=== PATIENT | female | born 1970 | race Caucasian/White ===

== ENCOUNTER 2020-03-03 15:02 | Outpatient (REF) | payer OTHER, SELFPAY ==
--- NOTE | 2020-03-03 15:22 | XR_ITS ---
EXAMINATION: XR ABDOMEN KUB CLINICAL INDICATION: Constipation bloating. COMPARISON: None TECHNIQUE: AP view of the abdomen. FINDINGS: The bowel gas pattern is normal with no evidence of ileus or obstruction. There is scattered stool in the right colon with No unusual soft tissue calcifications are noted. The bones are unremarkable. XR/XR abdomen 1V IMPRESSION: Mild constipation.
[2020-03-03 16:03] LABS: Hematocrit 36.7 % (37-47); Hemoglobin 12.2 g/dl (12.0-16.0); Mean Corpuscular HGB Conc 33.2 g/dl (31.0-35.0); Mean Corpuscular Hemoglobin 30.1 pg (27.0-33.0); Mean Corpuscular Volume 90.6 fL (80-98); Mean Platelet Volume 10.2 fL (9.4-12.3); Platelet Count 214 X10*3/uL (160-400); Red Blood Count 4.05 X10*6/uL (4.20-5.50); Red Cell Distribution Width 12.4 % (11.0-16.0); White Blood Count 5.4 X10*3/uL (4.8-10.8)
== END 2020-03-03 15:03 | disposition home or self-care (01) ==
LOC: HO.LAB 15:02
PROVIDERS: PCP Physician Assistant; Visit Provider Family Medicine
DX: R10.9 Unspecified abdominal pain (principal)
CPT/HCPCS: 36415; 74018; 85027

== ENCOUNTER 2020-03-13 07:57 | Outpatient (REF) | payer OTHER, SELFPAY ==
--- NOTE | 2020-03-13 | US_ITS ---
EXAMINATION: US ABDOMEN COMPLETE CLINICAL INFORMATION: Abdominal pain. COMPARISON: X-ray abdomen 03/03/2020. TECHNIQUE: Real-time imaging of the abdominal viscera. FINDINGS: PANCREAS: Normal. ABDOMINAL AORTA: The proximal, mid, and distal segments are normal in caliber. INFERIOR VENA CAVA: Visualized portions are normal. LIVER: The liver is normal in size. The liver contour is normal. Parenchymal echogenicity is normal. There is a 7 x 6 x 9 mm cyst high in the right lobe the liver near the diaphragm. There is no intrahepatic biliary duct dilatation seen. GALLBLADDER: The gallbladder is physiologically distended. There is a small 2 x 1 mm echogenic density adjacent to the gallbladder wall questionable for a small gallbladder wall polyp. No definite gallstones are seen. No gallbladder wall thickening, edema or pericholecystic fluid is seen. COMMON BILE DUCT: Normal in caliber measuring 0.3 cm in diameter. RIGHT KIDNEY: Normal. No hydronephrosis. No renal calculi or focal parenchymal lesions. The kidney measures 9.2 cm in maximum dimension. LEFT KIDNEY: There may be mild fullness of the left renal pelvis. No hydronephrosis. No renal calculi or focal parenchymal lesions. The kidney measures 9.2 cm in maximum dimension. SPLEEN: Normal. The spleen measures 9.6 cm in maximum dimension. FREE FLUID: None. ADDITIONAL FINDINGS: There is a small pericardial effusion. US/US abdomen complete IMPRESSION: Small liver cyst. Question small polyp in the gallbladder. No gallstone seen. Fullness of the left renal pelvis. No hydronephrosis. Small pericardial effusion. This could be better assessed with echocardiogram.
== END 2020-03-13 07:58 | disposition home or self-care (01) ==
LOC: HO.US 07:57
PROVIDERS: Visit Provider Family Medicine
DX: R10.9 Unspecified abdominal pain (principal)
CPT/HCPCS: 76700

== ENCOUNTER → 2020-04-05 13:59 | Outpatient (REF) | payer OTHER, SELFPAY ==
--- NOTE | 2020-04-05 14:00 | CA_ITS ---
Transthoracic Echocardiogram Patient (Last, First, Middle): Lea Marcus A Gender: Female Date of : 1970 Age: 49 Procedure Date: 04/05/2020 Procedure Type: Transthoracic Echocardiogram Location: OP Height: 157.48 cm Weight: 61.24 kg BSA: 1.62 m2 Heart Rate: bpm BP: 108 / 56 mmHg Environmental Communications Specialist: JOJO Ulloa MD: Irish [employer] Software Quality Manager: Charan Padilla MD Symptoms: PERICARDIAL EFFUSION Study Quality: Good ECG Rhythm: Sinus Conclusions: - Normal study Findings Left Ventricle Normal left ventricular size, thickness, and systolic function. The visually estimated ejection fraction is between 65-70%. Diastolic function is normal for age. Right Ventricle Normal right ventricular cavity size and systolic function. Atria Both atria are normal in size. There is lipomatous hypertrophy of the interatrial septum. There is no evidence of interatrial shunt. Aortic Valve Normal aortic valve structure and function. There is no aortic valve stenosis. There is no aortic valve regurgitation. Mitral Valve Normal mitral valve structure and function. There is trace mitral valve regurgitation. There is no mitral valve stenosis. Pulmonic Valve The pulmonic valve is likely normal. Tricuspid Valve Normal tricuspid valve structure. There is trace tricuspid valve regurgitation. The right ventricular systolic pressure is normal. The right ventricular systolic pressure is 26 mmHg. Normal right atrial pressure. There is no evidence of pulmonary hypertension. Great Vessels All visible segments of the aorta are normal in size. The pulmonary artery was not well visualized. Venous The inferior vena cava is normal in size and collapses greater than 50% with inspiration. Pericardium/Pleural There is no evidence of pericardial effusion. Prior Study Comparison No prior study available for comparison. Measurements 2D Linear Measurements RVIDd: 2.90 RVIDd Index: 1.79 IVSd: 0.89 0.6-0.9/0.6-1.0 cm LVIDd: 3.94 3.9-5.3/4.2-5.9 cm LVIDd Index: 2.43 2.4-3.2/2.2-3.1 cm/m2 LVIDs: 2.96 2.0-3.6 cm LVPWd: 0.99 0.7-1.1 cm Ao Root: 2.40 2.1-3.5 cm LA Diam: 3.00 2.7-3.8/3.0-4.0 cm LAIDs Index: 1.85 1.5-2.3 cm/m2 LV Mass: 141.62 67-162/88-224 g LV Mass Index: 87.42 43-95/49-115 g/m2 LVOT Diam: 2.00 3.0+(-)1.3 cm 2D Systolic Function EF 4C: 70.50 >55% EF 2C: 69.40 >55% EF BiP: 69.60 >55% Mitral Valve MV Pk E: 0.77 MV PK A: 0.35 MV Decel Time: 236.00 E/A: 2.20 E'Lateral: 12.20 E'Medial: 9.90 E/E' Med: 7.70 E/E' Lat: 6.30 Aortic Valve AoV Pk Michael: 1.18 AoV Mn Michael: 0.89 AoV VTI: 0.26 AoV Pk Grad: 6.00 Aov Mn Grad: 3.00 DAVID Cont.VTI: 2.14 LVOT LVOT Pk Michael: 0.83 LVOT Mn Michael: 0.59 LVOT VTI: 0.18 LVOT Pk Grad: 3.00 LVOT Mn Grad: 2.00 LVOT Diam: 2.00 LVOT Area: 3.14 Diastolic Function MV Pk E: 0.77 MV Pk A: 0.35 E/A: 2.20 E'Medial: 9.90 E/E' Med: 7.70 E' Laterial: 12.20 E/E' Lat: 6.30 Tricuspid Valve TR Pk Michael: 2.42 TR Pk Grad: 23.00 RA Press: 3.00 RVSP: 26.00 Great Vessels Aorta Ao Root-2D: 2.40 2.0-3.7 cm Ao Asc: 2.50 2.1-3.4 cm Ao Arch: 2.10 Updated in Other Vendor System with Status of Final Charan Padilla MD electronically signed on 04/05/2020 3:11:00 PM with status of Final
== END ==
LOC: HO.CARD 13:59
PROVIDERS: PCP Physician Assistant; Visit Provider Physician Assistant
DX: I31.1 Chronic constrictive pericarditis (principal)
CPT/HCPCS: 93306

== ENCOUNTER 2020-05-19 08:29 | Outpatient (REF) | payer OTHER, SELFPAY ==
[2020-05-19 08:56] LABS: COVID-19 Test Negative (Negative)
== END 2020-05-19 08:30 | disposition home or self-care (01) ==
LOC: HO.LAB 08:29
PROVIDERS: Visit Provider Internal Medicine
DX: Z20.822 Contact with and (suspected) exposure to COVID-19 (principal)
CPT/HCPCS: 36415; 87635; C9803

== ENCOUNTER 2020-05-23 07:50 | Outpatient (REF) | payer OTHER, SELFPAY ==
[2020-05-23 08:08] LABS: COVID-19 Test Negative (Negative); IDNOW Serial# 55D5AD1C
== END 2020-05-23 07:51 | disposition home or self-care (01) ==
LOC: HO.EMPCOV 07:50
PROVIDERS: Visit Provider Internal Medicine
DX: Z20.822 Contact with and (suspected) exposure to COVID-19 (principal)
CPT/HCPCS: 36415; 87635; C9803

== ENCOUNTER 2024-07-18 | Outpatient (REF) | payer OTHER, SELFPAY ==
--- OUTSIDE RECORDS SUMMARY | 2024-07-19 08:47 | XMS_ITS | Data Portability ---
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 [address] [place] [address] 09/25/2012 09:14:23 09/25/2012 10:07:42 [id number] Sunshine Serra MA , [facility], [address] [place] [address] 07/23/2013 14:18:09 07/26/2013 14:06:23 Palpitations [id number] Anxiety 95726138 [id number] MATTI Chavez , [facility], OFFICE [address] [place] [address] 11/24/2013 10:54:33 11/24/2013 15:18:18 Adult health examination [id number] see Risk Assessment and Lifestyle Change Counseling section above Counseling [id number] Perimenopa usal disorder [id number] , [facility], [address] [place] [address] 09/05/2014 10:35:58 09/06/2014 09:29:51 Multiple joint pain 13223027 Patient with diffuse finger joint pain. Also with associated fatigue and some perimenopa usal symptoms. Patient is concerned about Lyme disease. Will check Lyme Ab, CBC, ESR, TSH, BARBARA and RF. Will monitor for any worsening symptoms. Otalgia 37231113 Patient with right-side d ear ache. Recent URI symptoms. Also with right maxillary sinus congestion . Encouraged to use nasal saline irrigation . Has tried decongesta nt without significan t relief. Also recommende d oral antihistam ine. No clinical evidence of otitis media or otitis externa. No pain over the temporal artery area. [id number] Venita Allen , [facility], [address] [place] [address] 03/01/2015 11:51:04 03/09/2015 14:09:44 Urinary tract infectious disease 26196187 N39.0 I'm no sure this is a uti- is on docycyline which would treate e.coli. need to await u/c results. no rx prescribed . I doubt the sx are from the med, but pt stopped med anyway. Increased frequency of urination 250698011 R35.0 [id number] MATTI Chavez , [facility], [address] [place] [address] 03/22/2015 10:51:45 03/22/2015 12:03:25 Adult health examination 564657453 Z00.00 see Risk Assessment and Lifestyle Change Counseling section above Counseling 695147724 Z71 .9 Menopausal syndrome 1237 85291 N95.9 Multiple joint pain 3567 8005 M25.50 being tx/[facility] for lyme- neg western blot. [id number] Genna Correa MA , [facility], [address] [place] [address] 06/05/2016 13:26:05 06/05/2016 15:01:59 Adult health examination 359772564 Z00.00 see Risk Assessment and Lifestyle Change Counseling section above Counseling 005018181 Z71 .9 Screening mammography 24 588092 Z12.31 Screening for malignant neoplasm of cervix 837708262 Z12.4 Perimenopa usal disorder 080354379 N95.9 supportive measures reviewed- discussed risk with estrogen/p rogeterone - f/u if any pelvic pain, irregular bleeding or peristant joint pain Active or passive immunization 212145250 Z23 [id number] MATTI Chavez , [facility], [address] [place] [address] 06/11/2017 15:05:25 06/12/2017 07:42:42 Adult health examination 088909650 Z00.00 see Risk Assessment and Lifestyle Change Counseling section above Counseling 231421733 Z71 .9 Mass of buccal mucosa 13 47394070 3816516 K13.79 will f/u with oral surgeon. pt states will schedule, decline referral [id number] Aleida Zelaya MD , [facility], [address] [place] [address] 10/01/2017 10:50:07 10/01/2017 11:50:10 Pharyngitis 484748270 J02.9 URI/viral syndromeen c throat carehydrat ion, restsee pt instr Cough 92513960 R05 tx coughno evidence pna on exam or hx Chest pain 04392616 R07. 9 pt with chest pain that is very rare and not current but described as crushing and radiating to jaw, resolves on own after 15 minutes generallyE CG today in office normalwill get labs and exercise stress test [id number] MATTI Chavez FP, [facility], [address] [place] [address] 07/15/2018 16:00:31 07/16/2018 08:28:54 Adult health examination 882413001 Z00.00 see Risk Assessment and Lifestyle Change Counseling section above Counseling 935031025 Z71 .9 Depression screening 171 212326 Z13.89 depression screening tool administer ed, entered into emr, scored and discussed, time greater than 7.5 minutes Screening procedure 2012 5006 Z13.9 [id number] Sea Marie MD , [facility], [address] [place] [address] 08/25/2019 10:32:53 08/26/2019 08:40:12 Lesion of skin of breast 3700286499 33752 L98.8 discussed reassuring that it completely resolveds in day- suspect due to skin dryness- plan- use eucerin cream 1-2x/day as barrier on areolas of breast, f/u if not resolving in coming months- sooner any worsening. plan is to do mammogram- this yr when pandemic enables pt to come in- pt agrees with plan [id number] MATTI Chavez FP, [facility], [address] [place] [address] 12/13/2019 16:14:53 12/24/2019 12:06:39 Insomnia 451859666 G47.00 Gastroesop hageal reflux disease 608597150 K21.9 start famotodine 20 bid, reviewed triggers Chest pain 08688848 R07. 9 with negative stres test, no related to activity suspect due to gerd, keep diary re agg factors and for chest tenderness [id number] Sea Marie MD , [facility], [address] [place] [address] 02/23/2020 08:15:43 02/24/2020 12:38:01 Screening for malignant neoplasm of colon 612024007 Z12.11 Referral for a DIRECT booked colonoscop y. This patient is a healthy ASA Class 1 or 2 patient (only mild systemic disease), or a STABLE, well controlled insulin dependent diabetic. They do not have serious cardiac disease ie AZ/angiopl asty within 1 year, symptomati c CHF; renal failure with CKD 4 or 5; take Coumadin, Plavix, Aggrenox, etc. 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 pt also [facility] Scre[facility] for malignant neoplasm of cervix 102199225 Z12.4 will schedule for pap smear in coming months- 3 yr, [facility] '- pt would like to do [id number] Aleida Zelaya MD , [facility], [address] [place] [address] 03/02/2020 12:28:49 03/03/2020 08:47:37 Screening mammography 47027495 Z12.31 Abdominal pain 37489252 R10.9 3 weeks increasing , associated constipati onno n/v or fever/chil lsupper somewhat to leftfeels bloated, epigastric tenderness on examrectal vault emptyonly passing small hard stoolssusp ect severe constipati on, unclear reasoningn o acute abdlabs and imaging belowlactu lose today tx constipati onf/u one week, sooner PRNED if vomiting, fever, severe paincan add enema if stool moves down and trouble passing Screening for malignant neoplasm of colon 600076123 Z12.11 Constipation 93757739 K5 9.00 see notes above [id number] MATTI Chavez, [facility], [address] [place] [address] 03/29/2022 15:18:22 03/29/2022 16:10:45 Adult health examination 249387811 Z00.00 see Risk Assessment and Lifestyle Change Counseling section above Counseling 435736132 Z71 .9 including cardiovasc ular risk reduction counseling Depression screening 171 240383 Z13.31 depression screening tool administer ed, entered into emr, scored and discussed, time greater than 7.5 minutes Screening for alcohol abuse 015174607 Z13.39 Fatigue 20092440 R53.83 Screening for malignant neoplasm of colon 144613345 Z12.11 pt declines despite knowing risk of infection and Screening mammography 24 075191 Z12.31 pt declines testing despite knowing risk of infection and [id number] MATTI Chavez, [facility], [address] [place] [address] 06/11/2024 16:08:38 06/14/2024 12:11:09 Adult health examination 240501370 Z00.00 see Risk Assessment and Lifestyle Change Counseling section above Depression screening 171 989883 Z13.31 depression screening tool administer ed Screening for alcohol abuse 238174392 Z13.39 Alcohol use screening tool administer ed Hyperlipidemia 15732031 E78.5 Screening for malignant neoplasm of colon 251970488 Z12.11 pt declines despite knowing risk of infection and Vitamin D deficiency 347 75408 E55.9 Cobalamin deficiency 190 480186 E53.8 low animla products Health Concerns Section Related Observation LastModified by Organization Detai ls LastModified Time None Recorded Concern Status LastModified by Organization Details LastModified Time None Recorded Advance Directives Directive N: Payers Encounter Date Sequence Insurance Name Policy Number Policy Puckett Covered Member ID Puckett Member ID Guarantor Name 02/23/2020 1 [employer] [place] [id number] Lea A Marcus [id number] Lea A Marcus 03/02/2020 1 [employer] [place] [id number] Lea A Marcus [id number] 16 Lea A Marcus 03/29/2022 1 [employer] [place] [id number] Lea A Marcus [id number] 16 Lea A Marcus 06/11/2024 1 [employer] [place] [id number] Lea A Amrit [id number] 16 Lea A Marcus Notes Date Note Type Note Provider Name and Address Organization Details Recorded Time 02/23/2020 text/html Pt reports bloat ing ongoing about 2 wks- worsening in persisting, no abd pain, uncomfortable, worsening over time, had diarrhea on Friday after trying MOM.. no n/v, BM's- 1 q 2-3 days- high fluids, had been high fiber but has decreased. no assoc with dairy. no vaginal bleeding, no pelvic pain, was on antibiotics, no contaminated, city water, no travel. no symptoms, caffeine- 1/day, etoh- none, exercise continues. Letty video- pt has link, states may have trouble with her phone so if not online when AE is ready to please call Time for intake: {{1 2 3 4 5* 6 7 8 9 10 11 12 13 14 15 16 17 18 19 20 21 22 23 24 25}} minutes. Sea Marie MD [address] [place] [address], [place], [address], [facility] 02/23/2020 09:57:18 03/02/2020 text/html for past three w eeks has had some stomach bloating encompassing her whole abdpressure upper abd, sometimes pain on left upper, radiating to backBMs have been small and not frequentstarted metamucil last week w/o resultstried a suppository last night, no resultsfeels sx are getting worsevery uncomfortable, rhianna sitting downlast BM small balls three days agodoesn't recall last regular BMtried MOM and just had water from rectum after this two weeks ago has not had these sx before has not had recent change in diet or activity appetite is fine, supressing it herself because it hurts after she eatsdenies fever/chills, n/v/d, heartburn/reflux sx no unintentional weight loss in past six months postmenopausal, thinks 3-5 years nowno vaginal bleeding no hx irritable bowel syndrome or constipation Aleida Zelaya MD [address] [place] [address], [phone], [facility] 03/02/2020 14:02:03 03/29/2022 text/html Physical Exam/FemaleReported bypatient.PHAPatient is here for a Wellness Visit. She describes her health status as fair. Patient's health is worse than last year.Risk Assessment and Lifestyle Change Counseling 50-64Reported bypatient.Coronary Artery Disease Risk Assessment:No Family history of coronary artery disease; No personal history of diabetes; No history of peripheral vascular disease, AAA, or carotid disease; No personal history of coronary artery disease Breast Cancer Risk Assessment:No family history of breast cancer; No history of breast cancer or dcis Colon Cancer Risk Assessment:No family history of colon polyps or cancer; No history of adenomatous colon polyps Lung Cancer Risk Assessment:Never smoked; No asbestos exposure Fracture Risk Assessment:No unexplained fracture Cognitive/Behavioral Risk Assessment:No personal history of mental illness; No family history of mental illness Safety Risk Assessment:No evidence of abuse/neglect MATTI Chavez [address] [place], [address], [facility] 04/02/2022 22:26:11 06/11/2024 text/html Physical Exam/FemaleReported bypatient.PHAPatient is here for a Wellness Visit. She describes her health status as fair. Patient's health is worse than last year.Risk Assessment and Lifestyle Change Counseling 50-64Reported bypatient.Coronary Artery Disease Risk Assessment:No Family history of coronary artery disease; No personal history of diabetes; No history of peripheral vascular disease, AAA, or carotid disease; No personal history of coronary artery disease Breast Cancer Risk Assessment:No family history of breast cancer; No history of breast cancer or dcis Colon Cancer Risk Assessment:No family history of colon polyps or cancer; No history of adenomatous colon polyps Lung Cancer Risk Assessment:Never smoked; No asbestos exposure Fracture Risk Assessment:No unexplained fracture Cognitive/Behavioral Risk Assessment:No personal history of mental illness; No family history of mental illness Safety Risk Assessment:No evidence of abuse/neglect Pt presents for wvDeclines all qm measuresNo concerns History of Present IllnessThe patient, a 54-year-old with a 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 The patient's blood pressure and weight are within normal ranges.However, she has a history of high LDL cholesterol, and her mother has high cholesterol and high blood pressure. The patient is not sexually active and has not had a Pap test or HPV test in several years. She expresses concern about her risk for uterine cancer due to a family history of the disease no pelvic pain, no bleeding. The patient does not receive flu shots or COVID vaccines, and she declines colon cancer and breast cancer screening. She reports good sleep, a healthy diet, and regular exercise. She has reduced her caffeine intake and drinks alcohol only occasionally. MATTI Chavez [address] [place] [address], [place], [address], [facility] 06/13/2024 14:52:44 OBGyn Episode No OBEpisode recorded.
== END 2024-07-18 00:01 | disposition home or self-care (01) ==
LOC: HO.LNP
PROVIDERS: Visit Provider Physician Assistant
DX: Z13.89 Encounter for screening for other disorder (principal)

== ENCOUNTER 2024-07-19 07:50 | Outpatient (REF) | payer OTHER, SELFPAY ==
[2024-07-19 08:05] LABS: MANUAL DIFF FLAG NO
[2024-07-19 08:27] LABS: Basophils Percent Auto 0.7 % (0-2); Eosinophils Absolute Auto 0.2 X10*3/uL (0.0-0.4); Eosinophils Percent Auto 3.8 % (0-4); Hematocrit 38.5 % (37.0-47.0); Hemoglobin 13.1 g/dl (12.0-16.0); Imm Gran Abs Auto 0.01 X10*3/uL (0.00-0.03); Imm Gran Pct Auto 0.2 % (0.0-0.4); Lymphocytes Absolute Auto 1.6 X10*3/uL (1.2-4.9); Lymphocytes Percent Auto 38.4 % (20-40); Mean Corpuscular Hemoglobin 30.6 pg (27.0-33.0); Monocytes Absolute Auto 0.3 X10*3/uL (0.1-1.2); Neutrophils Absolute Auto 2.1 x10*3/uL (2.0-8.3); Neutrophils Percent Auto 50.9 % (45-73); Platelet Count 218 X10*3/uL (160-400); Red Blood Count 4.28 X10*6/uL (4.20-5.50); Red Cell Distribution Width 12.6 % (11.0-16.0); White Blood Count 4.2 X10*3/uL (4.8-10.8)
[2024-07-19 08:53] LABS: Alanine Aminotransferase 21 U/L (0-31); Albumin Level 4.3 g/dL (3.5-5.0); Alkaline Phosphatase 55 U/L (39-117); Anion Gap 11 (12-20); Aspartate Amino Transferase 25 U/L (5-31); Bilirubin Total 0.3 mg/dL (0.0-1.0); Blood Urea Nitrogen 15 mg/dL (9-16); Calcium 9.3 mg/dL (8.4-10.2); Carbon Dioxide 24 mmol/L (22-29); Chloride 110 mmol/L (96-108); Cholesterol 215 mg/dL (<200); Estimated Glomerular Filt Rate > 60; Glucose Random 105 mg/dL (60-115); HDL Cholesterol 77 mg/dL (>40); LDL Cholesterol Calculated 128 mg/dL (<100); Sodium 141 mmol/L (135-145); Total Protein 7.2 g/dL (6.5-8.0); Triglycerides 50 mg/dL (<150)
[2024-07-19 09:09] LABS: Thyroid Stimulating Hormone 1.84 uIU/mL (0.32-4.0)
== END 2024-07-19 07:51 | disposition home or self-care (01) ==
LOC: HO.LAB 07:50
PROVIDERS: PCP Physician Assistant; Visit Provider Physician Assistant
DX: R10.2 Pelvic and perineal pain (principal); Z13.6 Encounter for screening for cardiovascular disorders
CPT/HCPCS: 36415; 80053; 80061; 84443; 85025

== ENCOUNTER 2024-08-02 16:11 | Outpatient (REF) | payer OTHER, SELFPAY ==
--- NOTE | ~2024-08-02 | US_ITS ---
EXAMINATION: US PELVIS TRANSABDOMINAL AND TRANSVAGINAL HISTORY: pelvic pain COMPARISON: There are no prior studies for comparison. TECHNIQUE: Transabdominal and endovaginal real-time 2D morfin-scale ultrasound was performed. FINDINGS: Uterus: The uterus is normal in size, measuring 6.6 x 2.4 x 3.5 cm. Myometrium has a normal echotexture. There is a right uterine body fibroid measuring 1.5 x 1.4 x 1.3 cm. An additional posterior fibroid is seen measuring 0.9 x 0.6 x 0.6 cm. Endometrium: The endometrial stripe measures 2 mm in thickness. There is trace fluid in the endometrial canal. Right ovary: The right ovary measures 2.0 x 1.2 x 1.3 cm. The right ovary is normal in size and echotexture. Left ovary: The left ovary measures 2.1 x 1.5 x 1.9 cm. The left ovary is normal in size and echotexture. Pelvic fluid: none. US/US pelvic and transvaginal IMPRESSION: Fibroid uterus as described. Trace fluid in the endometrial canal. Electronically signed by: Alban Hoyos MD 08/03/2024 08:48 AM EDT
--- OUTSIDE RECORDS SUMMARY | 2024-08-02 18:50 | XMS_ITS | Data Portability ---
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 pt also due for colonoscop y screening- [facility] Screening for malignant neoplasm of cervix 497338547 Z12.4 will schedule for pap smear in coming months- 3 yr, pmh cryosurger y '93- pt would like to do [id number] Aleida Zelaya MD FP, [facility], [address] [place] [address] 03/02/2020 12:28:49 03/03/2020 08:47:37 Screening mammography 54172860 Z12.31 Abdominal pain 06169279 R10.9 3 weeks increasing , associated constipati [...] passing Screening for malignant neoplasm of colon 674329345 Z12.11 Constipation 63479239 K5 9.00 see notes above [id number] MATTI Chavez, [facility] [address] [place] [address] 03/29/2022 15:18:22 03/29/2022 16:10:45 Adult health examination 596547047 Z00.00 see Risk Assessment and Lifestyle Change Counseling section above Counseling 934859080 Z71 .9 including cardiovasc ular risk reduction counseling Depression screening 171 835875 Z13.31 depression screening tool administer ed, entered into emr, scored and discussed, time greater than 7.5 minutes Screening for alcohol abuse 090495235 Z13.39 Fatigue 59753727 R53.83 Screening for malignant neoplasm of colon 199106700 Z12.11 pt declines despite knowing risk of infection and Screening mammography 24 773458 Z12.31 pt declines testing despite knowing risk of infection and [id number] MATTI Chavez, [facility] [address] [place] [address] 06/11/2024 16:08:38 06/14/2024 12:11:09 Adult health examination 094082816 Z00.00 see Risk Assessment and Lifestyle Change Counseling section above Depression screening 171 294663 Z13.31 depression screening tool administer ed Screening for alcohol abuse 215676832 Z13.39 Alcohol use screening tool administer ed Hyperlipidemia 67982256 E78.5 Screening for malignant neoplasm of colon 463792990 Z12.11 pt declines despite knowing risk of infection and Vitamin D deficiency 347 03563 E55.9 Cobalamin deficiency 190 107926 E53.8 low animla products [id number] MATTI Chavez , [facility], [address] [place] [address] 07/16/2024 14:47:05 07/21/2024 15:25:50 Pain in pelvis 93458927 R10.2 Health Concerns Section Related Observation LastModified by Organization Detai ls LastModified Time None Recorded Concern Status LastModified by Organization Details LastModified Time None Recorded Advance Directives Directive N: Payers Encounter Date Sequence Insurance Name Policy Number Policy Puckett Covered Member ID Puckett Member ID Guarantor Name 02/23/2020 1 [employer] [place] [id number] Lea Anyi Marcus [id number] 16 Lea A Amrit 03/02/2020 1 [employer] [place] [id number] Lae Anyi Marcus [id number] 16 Lea A Amrit 03/29/2022 1 [employer] [place] [id number] Lea Marcus [id number] 16 Lea A Amrit 06/11/2024 1 [employer] [place] [id number] Lea Marcus [id number] 16 Lea A Amrit 07/16/2024 1 [employer] [place] [id number] Lea Marcus [id number] 16 Lea Marcus Notes Date Note Type Note Provider [...] 23 24 25}} minutes. Sea Marie MD [address] [place] [address], [phone], [facility] 02/23/2020 09:57:18 03/02/2020 text/html for past three [...] bowel syndrome or constipation Aleida Zelaya MD [address] [place], [address], [facility] 03/02/2020 14:02:03 03/29/2022 text/html Physical Exam/FemaleReported bypatient.PHAPatient [...] Risk Assessment:No evidence of abuse/neglect MATTI Chavez [address] [place] [address], [phone], [facility] 04/02/2022 22:26:11 06/11/2024 text/html Physical Exam/FemaleReported bypatient.PHAPatient [...] and drinks alcohol only occasionally. MATTI Chavez [address] [place] [address], [phone], [facility] 06/13/2024 14:52:44 07/16/2024 text/html Pt presents for gi sxSx include: change in BM, bloating, fullness, back pain, nauseaSx worsen after eatingDenies vomiting, diarrhea, fever, urinary sxOngoing x1 moInterventions include miralaxHas a self-reported good dietPeople at work report patient looks like she has lost weightSx affecting sleep OAD History of Present IllnessThe patient, with a history of vaginal atrophy, presents with abdominal discomfort and change in bowel habits for the past month. They describe a sensation of fullness and pressure in the abdomen, particularly around the umbilical region. They also report a change in bowel habits, with stools now appearing as 'nuggets or pellets.' Despite this change, they deny any straining or pain during bowel movements. The frequency of bowel movements has also changed, but the patient did not specify the new pattern. no blood in stoolsThe patient also reports lower back pain, nausea, and discomfort during sleep. They have not been eating due to the sensation of fullness after meals. They also report a feeling of pressure in the pelvic area. They deny any vaginal bleeding or discharge and are not sexually active. They report no issues with urination but feel pressure in the pelvic area, not specifically during urination.The patient has a family history of ovarian cancer (grandmother and two aunts on the paternal side), which is a cause of concern for them. They have not had a colonoscopy or stool cards done previously. MATTI Chavez [address] [place], [address], [facility] 07/19/2024 14:15:23 OBGyn Episode No OBEpisode recorded.
--- OUTSIDE RECORDS SUMMARY | 2024-08-02 18:51 | XMS_ITS | Continuity of Care Document ---
Author Organization [facility], , [facility], OFFICE Address [address] [place] [address] Care Team Providers Care Stock Room Manager Name Role Phone HAN COBURN Primary Care Provider GOMEZ COBURN Primary Care Provider ARTURO SÁNCHEZ OTHER [facility] Internal Medici ne SUNIL DE LA CRUZ Orthopedist Assessment Encounter Date Assessment Date Assessment LastModified by Organization Details LastModified Time 07/16/2024 07/16/2024 Assessment and Plan Abdominal Discomfort [...] is overdue and changes in bowel habits. leslie Not available 07/19/2024 14:12:58 Plan of Treatment Reminders Order Date Submit Date Provider Last Modified By Organization Details Last Modified Time Details Appointments Follow Up, 2024 03:15P M MATTI Chavez Not available Not available Not available Lab urinalysi s, dipstick 2024 025 [facility], [address] [place] [address], [address], 07/16/2024 16:35:20 CBC 2024 025 [facility]), [address] [place] [address], [address], 07/16/2024 16:03:54 CMP, serum or plasma 2024 025 [facility] [address] [place] [address], [address], 07/20/2024 14:25:03 fecal occult blood, immunoass ay, stool [address] [facility], [address] [place] [address], [address], 07/20/2024 10:44:39 Referral None recorded. Procedures None recorded. Surgeries None recorded. Imaging US, pelvis, complete - 53 yo with 1 month hx of pelvic pain, exam- no masses, FH ovarian cancer [address] [facility], [address] [place] [address], [address], 07/19/2024 14:26:29 US, transvagi nal - worsening pelvic pressure with vaginal blaoting, exam- [address] [facility] Sched[facility], [address] [place] [address], [address], 07/19/2024 14:27:03 Medication Orders None recorded. Patient TargetsNo targets recorded. Patient InstructionsNo instructions recorded. Reason for Referral None Reported. 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 MATTI Chavez [address] [place] [address], [phone] , [place] [facility] 11:42:04 Nausea 307211069 Completed 200603/31/2013 Not Available [facility] 3 02:03:39 Nausea and vomiting 24008774 Completed 200603/31/2013 Not Available [facility] 3 02:03:05 Right lower quadrant pain 329729861 Completed 200303/31/2013 Not Available [facility] 3 02:03:25 Acute cystitis 73897840 Completed 200003/31/2013 Not Available [facility] 3 02:02:31 Lymphadeno ayan 07359931 Completed 200003/31/2013 Not Available [facility] 3 02:03:13 Anxiety state 994512768 Active Not Available [facility] 3 03:06:43 Dizziness 300540740 Completed 200203/31/2013 Not Available [facility] 3 02:02:07 Breast lump 86693041 Active 2007 Not Available [facility] 3 03:06:43 Common cold 01650662 Completed 200003/31/2013 Not Available [facility] 3 02:00:24 Hemorrhage of rectum and anus 577162628 Completed 03/31/2013 Not Available [facility] 3 02:03:16 Abdominal pain 50856832 Completed 200303/31/2013 Not Available [facility] 3 02:01:19 Irregular periods 72270208 Completed 200003/31/2013 Not Available [facility] 3 02:02:18 On examinatio n - a rash Completed 200603/31/2013 Not Available [facility] 3 02:00:45 Female genital organ symptoms 736047499 Completed 200303/31/2013 Not Available [facility] 3 02:03:07 Menopausal symptom 32488068 Completed 03/31/2013 Not Available [facility] 3 02:01:28 Acne 81054912 Active 2003 Not Available [facility] 3 03:06:43 Amenorrhea 58762694 Active Not Available [facility] 3 03:06:43 Cyst of ovary 50017838 Active Not Available [facility] 3 03:06:43 Malaise and fatigue 524936557 Completed 200003/31/2013 Not Available [facility] 3 02:00:14 Vaginitis and vulvovagin itis Completed 200603/31/2013 Not Available [facility] 3 02:01:47 Problem Notes None recorded. Procedures Surgical History Date Name Laterality Status Provider Name and Address Organization Details Recorded Time 0 prevention-card iovascular risk reduction [facility] 11/18/2019 15:22:02 0 prevention-jules al alcohol misuse screening cancelled [facility] 11/18/2019 15:22:02 8 POC Strep Testing completed RONNA Cabrera [facility] 10/01/2017 11:06:46 Imaging Results None recorded. Procedure Notes None recorded. Medical Equipment None Reported. Allergies Allergen ID Allergen Name Allergen Category Reaction Reaction Severity Criticality Documentation Date Start Date Code Code System Note Provider Name and Address Organization Details Recorded Time 3901 morphine medicatio n hives Not available Not available 07/07/2008 7052 RxNorm Not Available [facility] 1 06:05:20 Medications Name Sig Start Date [...] Updated DateTime 5 166.37 cm 22.3 kg/m2 08671.5 6 g 99 % 99 % 61 /min 97.7 [degF] 112 mm[Hg] 72 mm[Hg] Marifer Welch MA [facility] 5 14:57:32 Social History Question Answer Notes LastModified by Organizat ion Details LastModified Time Tobacco Smoking Status Never Smoker Not Available [facility] 03/28/2011 04:53:49 Do You Have An Advance [...] available 07/07/2008 What Is Your Relationship Status? [email or web address] Information not available 03/29/2022 Seat Belts Used Routinely Yes Information not available 03/29/2022 Are You Sexually Active? No [email or web address] Information not available 03/29/2022 Smoke Alarm In Home Yes Information not available 03/29/2022 Do You Or Have You Ever Used Smokeless Tobacco? Never Used Smokeless Tobacco Information not available 03/29/2022 How Much Tobacco Do You Smoke? No Information not available 03/29/2022 General Stress Level Medium Varies Information not available 03/29/2022 Do You Use Any Illicit Or Recreational Drugs? No [email or web address] Information not available 03/29/2022 How Many Years Have You Smoked Tobacco? 0 [email or web address] Information not available 08/25/2019 Do You Or Have You Ever Used Any Other Forms Of Tobacco Or Nicotine? No [email or web address] Information not available 03/29/2022 Sex: Female Functional [...] Td(adult) unspecified formulation 5 completed Not Available [facility] 03/27/2011 05:21:29 influenza, unspecified formulation 2 completed Odalis Weston MA [facility] 04/29/2012 12:11:23 Tdap 7 completed Not Available [facility] 05/29/2019 02:29:58 Past Encounters Encounter ID Performer Location Encounter Start Date Encounter Closed Date Diagnosis/Indication Diagnosis SNOMED-CT Code Diagnosis ICD10 Code Diagnosis Note [id number] MATTI Chavez, [facility], [address] [place] [address] 07/16/2024 14:47:05 07/21/2024 15:25:50 Pain in pelvis 64609881 R10.2 Health Concerns Section Related Observation LastModified by Organization Detai ls LastModified Time None Recorded Concern Status LastModified by Organization Details LastModified Time None Recorded Payers Encounter Date Sequence Insurance Name Policy Number Policy Puckett Covered Member ID Puckett Member ID Guarantor Name 07/16/2024 1 [employer] [facility] (EPO) [id number] Lea Marcus [id number] 16 Lea Marcus Notes Date Note Type Note Provider Name and Address Organization Details Recorded Time 07/16/2024 text/html Pt presents for gi sxSx [...] or stool cards done previously. MATTI Chavez [address] [place] [address], [phone], [facility] 07/19/2024 14:15:23 OBGyn Episode No OBEpisode recorded.
== END 2024-08-02 16:12 | disposition home or self-care (01) ==
LOC: HO.US 16:11
PROVIDERS: PCP Physician Assistant; Visit Provider Family Medicine
DX: R10.2 Pelvic and perineal pain (principal)
CPT/HCPCS: 76830; 76856

== ENCOUNTER → 2024-08-02 16:19 | Outpatient (BNV) | payer OTHER, SELFPAY | PROVIDERS: PCP Physician Assistant; Visit Provider Radiology Diagnostic Radiology | DX: R10.2 Pelvic and perineal pain (principal) | CPT/HCPCS: 76830; 76856 ==

== ENCOUNTER 2024-10-21 08:08 | Outpatient (REF) | payer OTHER, SELFPAY ==
--- OUTSIDE RECORDS SUMMARY | 2024-10-21 08:14 | XMS_ITS ---
Author Name [facility] Organization Unknown Results Test Name/Text Value Interpretation Date Range Source ALP SerPl-cCnc 56U/L [id number] 45 - 117 [facility] Potassium SerPl-sCnc 4.1mmol/L [id number] 3.5 - 5.1 [facility] GFR/BSA.pred SerPlBld QIU-FIY-NlWCdl 60mL/min/1.73 m2 [id number] - [facility] BUN SerPl-mCnc 16mg/dL 189147327844 7 - 18 [facility] Chloride SerPl-sCnc 107mmol/L 885941113644 98 - 10 7 [facility] Bilirub SerPl-mCnc 0.6mg/dL 538126823895 - 1 [facility] Albumin SerPl BCG-mCnc 3.4g/dL 853192973968 3.4 - 5 [facility] Anion Gap3 SerPl-sCnc 6mmol/L [id number] 5 - 15 [facility] Sodium SerPl-sCnc 138mmol/L 606702562682 136 - 145 [facility] ALT SerPl w/o P-5'-P-cCnc 25U/L 135736098800 13 - 56 [facility] BKR CREATININE DELTA 356353908874 [facility] Globulin Plas-mCnc 3.5g/dL 456420465858 2.5 - 5 [facility] Prot SerPl-mCnc 6.9g/dL 561491622930 6.4 - 8.2 [facility] Calcium SerPl-mCnc 9.4mg/dL 635409807697 8.5 - 10 .1 [facility] HCO3 SerPl-sCnc 25mmol/L 030213656056 21 - 32 [facility] AST SerPl w P-5'-P-cCnc 18U/L [id number] 15 - 37 [facility] Glucose SerPl-mCnc 113mg/dL Above high normal 137719439093 65 - 110 [facility] Creat SerPl-mCnc 1.01mg/dL 245265189708 0.55 - 1.0 2 [facility] Troponin T SerPl HS-mCnc 6ng/L 205135167175 - [facility] D dimer FEU PPP-mCnc 0.74mg/LFEU Above high normal 558 - 0.5 [facility] WBC # Bld Auto 4.6c6334/uL 4 - 11 [facility] nRBC/100 WBC Bld Auto-Rto 0% 0 - 1 [facility] Imm Granulocytes/leuk NFr Bld Auto 0.6% 0 - 1 [facility] Lymphocytes # Bld Auto 0.57t0145/uL Below low normal 534400691708 0.6 - 3.7 [facility] Neutrophils/leuk NFr Bld Auto 83.1% Above high normal 964894901564 39 - 72 [facility] Lymphocytes/leuk NFr Bld Auto 8.8% Below low normal 180408445186 17 - 50 [facility] Monocytes # Bld Auto 0.25s3444/uL 122730601484 0 - 1 [facility] Hct VFr Bld Auto 35.7% 895558700295 35 - 45 [facility] Basophils/leuk NFr Bld Auto 0.2% 530567215986 0 - 1.4 [facility] Basophils # Bld Auto 0.93s3182/uL 436287932552 0 - 1 [facility] Hgb Bld-mCnc 12.8g/dL 924265338933 11.7 - 15.5 [facility] Eosinophil/leuk NFr Bld Auto 0.2% 829153207064 0 - 5 [facility] Monocytes/leuk NFr Bld Auto 7.1% 183175078454 4 - 12 [facility] Neutrophils # Bld Auto 4.91q6641/uL 103386879810 2 - 7.6 [facility] Platelet # Bld Auto 644l5215/uL 313788405679 150 - 420 [facility] PMV Bld Auto 9.6fL 795040316496 8 - 12 [facility] Eosinophil # Bld Auto 0.32z8828/uL 291593214500 0 - 1 [facility] RBC # Bld Auto 4.09M/uL 022832294523 4 - 6 [facility] MCH RBC Qn Auto 31.3pg 544180807244 27 - 33 [facility] Imm Granulocytes # Bld Auto 0.70e7939/uL 800058249665 0 - 0.3 [facility] MCV RBC Auto 87.3fL 110806439521 80 - 100 [facility] RDW RBC Auto-Rto 13.2% 031630777329 11 - 15 [facility] nRBC # Bld Auto 6v5191/uL 269521041104 0 - 1 [facility] MCHC RBC Auto-mCnc 35.9g/dL 918603339663 31 - 36 [facility] Encounters Encounter Type Encounter Reason Primary Diagnosis Location Date Emergency Chest pain, unspecified Chest pain, unspecified [facility] 10/04/2024 Care Team Organization Name Specialty Phone Email Start Date End [facility] 10/04/2024 [facility] GOMEZ COBURN Primary Care 10/04/2024 [facility]
[2024-10-21 08:58] LABS: Alanine Aminotransferase 23 U/L (0-31); Albumin Level 4.6 g/dL (3.5-5.0); Alkaline Phosphatase 53 U/L (39-117); Aspartate Amino Transferase 22 U/L (5-31); Bilirubin Direct 0.2 mg/dL (0.0-0.5); Bilirubin Total 0.7 mg/dL (0.0-1.0); Lipase 35 U/L (8-78); Total Protein 6.8 g/dL (6.5-8.0)
[2024-10-21 09:23] LABS: Amylase 102 U/L (28-100)
== END 2024-10-21 08:09 | disposition home or self-care (01) ==
LOC: HO.LAB 08:08
PROVIDERS: PCP Physician Assistant; Referring Provider Physician Assistant; Visit Provider Nurse Practitioner Family
DX: R10.13 Epigastric pain (principal)
CPT/HCPCS: 36415; 80076; 82150; 83690

== ENCOUNTER 2024-11-03 09:17 | Outpatient (REF) | payer OTHER, SELFPAY ==
--- NOTE | ~2024-11-03 | US_ITS ---
EXAMINATION: US ABDOMEN HISTORY: epigastric pain TECHNIQUE: Real-time grayscale ultrasound imaging of the abdomen was performed and images were reviewed. COMPARISON: Comparison is made with the prior examination dated 03/13/2020. FINDINGS: Liver: The right lobe of the liver measures 15.0 cm in size. The left lobe of the liver measures 9.6 cm in size. The liver demonstrates normal homogeneous echotexture. Again seen is a 9 mm cyst in the right lobe. No intrahepatic biliary ductal dilatation is identified. There is normal hepatopedal flow in the portal vein. Gallbladder and biliary tree: Multiple gallbladder polyps are identified, the largest of which measures 7 mm in size. The gallbladder is otherwise unremarkable, without evidence of calculi, wall thickening, or pericholecystic fluid. There is no sonographic Campbell sign. The common bile duct is normal in caliber measuring 5 mm. Kidneys: The right kidney measures 9.7 cm in length. The left kidney measures 9.0 cm in length. There is a tiny 2 mm nonobstructing calculus in the interpolar region of the left kidney. The right renal calculi are identified. There is no renal mass or hydronephrosis. Pancreas: The pancreatic head, neck, and body are unremarkable. The pancreatic tail is obscured by bowel gas. Spleen: The spleen is normal in size and contour, measuring 9.2 cm in length. Abdominal aorta and inferior vena cava: The visualized portions of the abdominal aorta and inferior vena cava are normal in caliber. There is no free fluid in the abdomen. US/US abdomen complete IMPRESSION: 1. Multiple gallbladder polyps measuring up to 7 mm in size. Follow-up is recommended. 2. 9 mm hepatic cyst. 2 mm nonobstructing left renal calculus. Electronically signed by: Alban Hoyos MD 11/03/2024 10:16 AM EDT
--- OUTSIDE RECORDS SUMMARY | 2024-11-03 10:09 | XMS_ITS | Data Portability ---
Author Organization [facility], [facility] Address [address] [place] [address] Care Team Providers Care [facility] Name Role Phone SEA MARIE Primary Care Provider GOMEZ MARIE Primary Care Provider ARTURO SÁNCHEZ OTHER [facility] Internal Medici ne SUNIL DE LA CRUZ Orthopedist Assessment Encounter Date Assessment Date Assessment LastModified by Organization Details LastModified Time 06/11/2024 06/11/2024 Results LABS Total cholesterol: 265 (2019) LDL: 170 (2019) DIAGNOSTIC EKG: Normal (2018) Assessment and Plan Skin Lesion Devine, round lesion present for a year, appears benign. - Educated on monitoring for changes in size, border, or color. Hyperlipidemia Total cholesterol 265 mg/dL, LDL 170 mg/dL in 2020. Family history noted. Discussed need for re-evaluation. [...] of immunizations. - Encouraged healthy lifestyle choices. BINGO FLOATER - perforning pap- f/u /BINGO FLOATER recommendation Follow-up Discussed follow-up plans for lab work and next physical exam. - Schedule fasting lab tests at [facility], including vitamin D and B vitamins. - Schedule next annual physical exam. aesrick Not available 06/13/2024 14:52:34 07/16/2024 07/16/2024 Assessment [...] bowel habits. aesrick Not available 07/19/2024 14:12:58 10/27/2024 10/27/2024 Patient agreed t o this visit via phone or secure telehealth platform. Patient understands this is a scheduled visit and the usual procedures with regard to billing and confidentiality apply. Patient was notified that the provider location is [facility] Patient location: home During the visit the patient s medical history and medical record were reviewed. The patient was notified to call our office for worsening or urgent symptoms. [email or web address] Not available 10/27/2024 10:48:04 Plan of Treatment Reminders Order Date Submit Date Provider Last Modified By Organization Details Last Modified Time Details Appointments None recorded. Lab lipase, serum or plasma 2024 025 [facility] ([facility]), [address] [place] [address], [address], 16:00:46 amylase + lipase, serum 2024 025 [facility] ([facility]), [address] [place] [address], [address], 12:58:34 hepatic function panel, serum 2024 025 [facility] ([facility]), [address] [place] [address], [address], 5 10:30:33 urinalysis , dipstick 2024 025 [facility], [address] [place], [address], 16:35:20 CBC 2024 025 [facility] ([facility]), [address] [place] [address], [address], 16:03:54 CMP, serum or plasma 2024 025 [facility] ([facility]), [address] [place] [address], [address], 14:25:03 fecal occult blood, immunoassa y, stool 2024 025 [facility], [address] [place] [address], [address], 10:44:39 vitamin D, 25-hydroxy , total, serum 2024 025 [facility] ([facility]), [address] [place] [address], [address], 12:40:46 lipid panel, serum 2024 025 [facility] ([facility]), [address] [place] [address], [address], 14:25:04 BMP, serum or plasma 2024 025 [facility] ([facility]), [address] [place] [address], [address], 12:40:46 TSH, serum or plasma 2024 025 [facility] ([facility]), [address] [place] [address], [address], 14:25:04 vitamin B12, serum 2024 025 [facility] ([facility]), [address] [place] [address], [address], 12:40:46 Referral None recorded. Procedures None recorded. Surgeries None recorded. Imaging exercise stress test - 5'5 , 132lbs, no pacer, no medication s to [id number] atypical chest pain lasting 36 hrs., eval in ER recommnedi ng stress test [address] Central Scheduling, [address] [place] [address], [address], 14:50:15 US, abdomen, complete - episodic RUQ and epigastric pain - eval for liver or gall bladder issues 2024 025 [facility] ([facility]), [address] [place] [address], [address], 08:28:24 US, pelvis, complete - 53 yo with 1 month hx of pelvic pain, exam- no masses, FH ovarian cancer 2024 025 [facility] Central Scheduling, [address] [place] [address], [address], 5 08:59:24 US, transvagin al - worsening pelvic pressure with vaginal blaoting, exam- [address] Central Scheduling, [address] [place] [address], [address], 5 14:27:03 Medication Orders famotidine 20 mg tablet 2024 025 [facility] #[id number], [address] [place], [address], 11:34:08 Patient TargetsNo targets recorded. Patient Instructions Encounter Date Encounter Id Patient Instructions Last Modified By Organization Details Last Modified Time 03/29/2022 [id number] well visit, wome n 50 to 65: care instructions [email or web address] Not available 03/29/2022 16:07:46 After a discussi on of treatment options, which included consideration of best practices and patient preferences, the following treatment plan and objectives were adopted: Vitamin D 1000 IUs, Calcium rich diet, exercise daily, resistance training twice per week, Mediterranean diet reviewed. aesrick Not available 03/29/2022 16:09:51 Reason for Referral None Reported. Results Created Date Observation Date Name Description Value Unit Range Abnormal Flag Note LastModifiedBy Organization Detail LastModifiedTime 07/17/1907/16/2024 POC UA glu UA NEGATI VE Not Available [address], [address], 07/16/2024 15:51:06 07/17/19 25 07/16/2024 POC UA clarity UA CLEAR Not Available [address], [address], 07/16/2024 15:51:06 07/17/19 25 07/16/2024 POC UA uro UA 0.2000 Not Available [address], [address], 07/16/2024 15:51:06 07/17/19 25 07/16/2024 POC UA ket UA NEGATI VE Not Available [address], [address], 07/16/2024 15:51:06 07/17/19 25 07/16/2024 POC UA pro UA NEGATI VE Not Available [address], [address], 07/16/2024 15:51:06 07/17/19 25 07/16/2024 POC UA nit UA NEGATI VE Not Available [address], [address], 07/16/2024 15:51:06 07/17/19 25 07/16/2024 POC UA destiny UA NEGATI VE Not Available [facility] [address] [place] [address], [address], 07/16/2024 15:51:06 07/17/19 25 07/16/2024 POC UA pH UA 6.0000 Not Available [facility] [address] [place] [address], [address], 07/16/2024 15:51:06 07/17/19 25 07/16/2024 POC UA SG UA 1.0150 Not Available [facility] [address] [place] [address], [address], 07/16/2024 15:51:06 07/17/19 25 07/16/2024 POC UA color UA YELLOW Not Available [facility] [address] [place] [address], [address], 07/16/2024 15:51:06 07/17/19 25 07/16/2024 POC UA blo UA NEGATI VE Not Available [facility] [address] [place] [address], [address], 07/16/2024 15:51:06 07/17/19 25 07/16/2024 POC UA kinsey UA NEGATI VE Not Available [facility] [address] [place] [address], [address], 07/16/2024 15:51:06 07/19/19 25 07/20/2024 IMMUN OCHEM ICAL FECAL OCCUL T BLOOD ifobt NEGATI VE negati ve Not Available [address], [address], 07/20/2024 10:44:39 08/04/19 25 08/02/2024 US, cindy s, compl ete No observ ation record ed. [facility] [address] [place], [address], 08/06/2024 15:45:39 Result Notes None recorded. Problems Name Problem SNOMED Code Status Onset Date Resolution Date Notes Provider Name and Address Organization Details Recorded Time Perimenopa usal disorder 202932328 Active MATTI Chavez [address] [place] [address], [address] , [facility] 4 11:42:04 Nausea 666566859 Completed 200603/31/2013 Not [address] [facility] 3 02:03:39 Nausea and vomiting 48408396 Completed 200603/31/[address] [facility] 3 02:03:05 Right lower quadrant pain 133468115 Completed 200303/31/[address] [facility] 3 02:03:25 Acute cystitis 10469389 Completed 200003/31/[address] [facility] 3 02:02:31 Lymphadeno ayan 68919101 Completed 200003/31/[address] [facility] 3 02:03:13 Anxiety state 305283851 Active Not Available [facility] 3 03:06:43 Dizziness 867828477 Completed 200203/31/2013 Not Available [facility] 3 02:02:07 Breast lump 14337673 Active 2007 Not Available [facility] 3 03:06:43 Common cold 97127633 Completed 200003/31/[address] [facility] 3 02:00:24 Hemorrhage of rectum and anus 515567414 Completed 03/31/[address] [facility] 3 02:03:16 Abdominal pain 11376129 Completed 200303/31/2013 Not Available [facility] 3 02:01:19 Irregular periods 96231563 Completed 200003/31/[address] [facility] 3 02:02:18 On examinatio n - a rash Completed 200603/31/2013 Not Available [facility] 3 02:00:45 Female genital organ symptoms 335928031 Completed 200303/31/2013 Not Available [facility] 3 02:03:07 Menopausal symptom 99501343 Completed 03/31/2013 Not Available [facility] 3 02:01:28 Acne 67293481 Active 2003 Not Available [facility] 3 03:06:43 Amenorrhea 42331232 Active Not Available [facility] 3 03:06:43 Cyst of ovary 64070402 Active Not Available [facility] 3 03:06:43 Malaise and fatigue 803892973 Completed 200003/31/2013 Not Available [facility] 3 02:00:14 Vaginitis and vulvovagin itis Completed 200603/31/2013 Not Available [facility] 3 02:01:47 Problem Notes None recorded. Procedures Surgical History Date Name Laterality Status Provider Name and Address Organization Details Recorded Time 0 prevention-card iovascular risk reduction counseling cancelled Gennachapo Correa [facility] 11/18/2019 15:22:02 0 prevention-jules al alcohol misuse screening [facility] 11/18/2019 15:22:02 8 POC Strep Testing completed RONNA Cabrera [facility] 10/01/2017 11:06:46 Imaging Results None recorded. Procedure Notes None recorded. Medical Equipment None Reported. Allergies Allergen ID Allergen Name Allergen Category Reaction Reaction Severity Criticality Documentation Date Start Date Code Code System Note Provider Name and Address Organization Details Recorded Time 3901 morphine medicatio n hives Not available Not available 07/07/2008 7052 RxNorm Not Available [facility] 1 06:05:20 Medications Name Sig Start Date [...] day by oral route for 30 days. 2024 active Not Available Not Available Not Avai lable lorazepam 0.5 mg tablet Take 1 tablet [...] BY MOUTH EVERY HOUR UNTIL BOWEL MOVEMENT 10/06 completed not taking Not Available Not Available Not Available Vitals Date Recorded Body height Body mass index (BMI) Body weight Heart rate Oxygen saturation Oxygen saturation in Arterial blood by Pulse oximetry Systolic blood pressure Diastolic blood pressure Provider Name and Address Organization Details Last Updated DateTime 5 166.37 cm 22.5 kg/m2 70405.1 5 g 67 /min 99 % 99 % 124 mm[Hg] 56 mm[Hg] Marifer Welch MA [facility] 5 16:18:41 Date Recorded Body height Body mass index (BMI) Body weight Oxygen saturation Oxygen saturation in Arterial blood by Pulse oximetry Heart rate Body temperature Systolic blood pressure Diastolic blood pressure Provider Name and Address Organization Details Last Updated DateTime 5 166.37 cm 22.3 kg/m2 82684.5 6 g 99 % 99 % 61 /min 97.7 [degF] 112 mm[Hg] 72 mm[Hg] Marifer Welch [facility] 5 14:57:32 Date Recorded Body height Heart rate Oxygen saturation Oxygen saturation in Arterial blood by Pulse oximetry Body mass index (BMI) Body weight Systolic blood pressure Diastolic blood pressure Provider Name and Address Organization Details Last Updated DateTime 5 166.37 cm 73 /min 99 % 99 % 21.7 kg/m2 04805.5 9 g 90 mm[Hg] 58 mm[Hg] Suzie Lemons [facility] 5 14:42:15 Date Recorded Body height Provider Name an d Address Organization Details Last Updated DateTime 10/27/2024 166.37 cm Marifer Welch [facility] 10/27/2024 10:49:35 Date Recorded Heart rate Body weight Body mass index (BMI) Body height Systolic blood pressure Diastolic blood pressure Provider Name and Address Organization Details Last Updated DateTime 2 78 /min 37706.3 7 g 21.8 kg/m2 167.64 cm 112 mm[Hg] 62 mm[Hg] Betsy Prado [facility] 2 15:41:30 Social History Question Answer Notes LastModified by Organizat ion Details LastModified Time Tobacco Smoking Status Never Smoker Not Available [facility] 03/28/2011 04:53:49 Do You Have An Advance Directive? No Information not available 03/29/2022 How Much Tobacco Do You Chew? None Information not available 11/24/2013 Which Illicit Or Recreational Drugs Have You Used? None [email or web address] Information not available 10/01/2017 Education 4 Year College Information not available 03/29/2022 Live Alone Or With Others? With Others Information not available 03/29/2022 CSRP - Narcotics No Informat ion not available 11/24/2013 CSRP Contract Signed And Discussed No Information not available 11/24/2013 Patient Has Health Care Proxy Signed And In Chart No CHRIS PHIPPS, [email or web address] Information not available 09/15/2012 CSRP - Stimulants No Information not available 11/24/2013 Marital Status Informatio n not available 03/29/2022 Mosquito Repellent Used Routinely Yes Information not available 03/29/2022 What Was The Date Of Your Most Recent Tobacco Screening? 07/16/2024 Information not available 07/16/2024 How Many Children Do You Have? 1 15 Yo Daughter [email or web address] Information not available 07/07/2008 What Is Your Relationship Status? [email or web address] Information not available 03/29/2022 Seat Belts Used Routinely Yes Information not available 03/29/2022 Are You Sexually Active? No [email or web address] Information not available 03/29/2022 Smoke Alarm In Home Yes Information not available 03/29/2022 How Much Tobacco Do You Smoke? No Information not available 03/29/2022 General Stress Level Medium Varies Information not available 03/29/2022 How Many Years Have You Smoked Tobacco? 0 [email or web address] Information not available 08/25/2019 Sex: Female Functional Status Question Answer Note LastModified by Organizat ion Details LastModified Time Do you use any illicit or recreational drugs? No [email or web address] Information not available 03/29/2022 Do you or have you ever used any other forms of tobacco or nicotine? No [email or web address] Information not available 03/29/2022 Do you or have you ever used smokeless tobacco? Never used smokeless tobacco Information not available 03/29/2022 Are you currently employed? 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 Never used electronic cigarettes Information not available 03/29/2022 Mental Status None recorded. Family History Relationship Description Onset Age of this Age Resolved Age Notes LastModified by Organization Details LastModified Time Maternal Grandmother Malignant neoplasm of uterus [email or web address] Not available 2021 15:18:32 Mother Disorder of thyroid gland aesrick Not available 2016 14:34:06 Mother Hypercholest erolemia mperkalis Not available 2021 15:18:32 Mother Hypertensive disorder aesrick Not available 2019 16:45:43 Paternal Grandmother Malignant neoplasm of ovary aesrick Not available 2024 15:35:09 Paternal Aunt Malignant neoplasm of ovary aesrick Not available 2024 15:35:16 Paternal Aunt Malignant neoplasm of ovary aesrick Not available 2024 15:35:31 [...] Td(adult) unspecified formulation 5 completed Not Available [facility] 03/27/2011 05:21:29 influenza, unspecified formulation 2 completed Odalis Weston [place] [facility] 04/29/2012 12:11:23 Tdap 7 completed Not Available [facility] 05/29/2019 02:29:58 Past Encounters Encounter ID Performer Location Encounter Start Date Encounter Closed Date Diagnosis/Indication Diagnosis SNOMED-CT Code Diagnosis ICD10 Code Diagnosis Note [id number] Binh Escobedo, [facility], [address] [place] [address] 10/16/2000 16:30:00 06/01/2008 02:02:29 [id number] MATTI Chavez, [facility], [address] [place] [address] 02/11/2001 09:45:00 06/01/2008 02:02:29 [id number] JULISSA Meléndez, [facility], [address] [place] [address] 03/09/2001 13:30:00 06/01/2008 02:02:29 [id number] JULISSA Meléndez, [facility], [address] [place] [address] 04/17/2001 13:30:00 06/01/2008 02:02:29 [id number] Dora Chun NP FP, [facility], [address] [place] [address] 05/06/2001 13:00:00 06/01/2008 02:02:29 [id number] Blaine Malagon MD FP, [facility], [address] [place] [address] 08/11/2001 17:00:00 06/01/2008 02:02:29 [id number] MATTI Chavez, [facility], [address] [place] [address] 10/25/2002 11:31:01 06/01/2008 02:02:29 [id number] [facility] - [address] [address] 10/25/2002 12:43:07 06/01/2008 02:02:29 [id number] MATTI Chavez, [facility], [address] [place] [address] 09/30/2003 12:19:10 09/30/2003 15:34:19 [id number] MATTI Chavez, [facility], [address] [place] [address] 12/02/2003 14:07:01 12/03/2003 11:03:47 [id number] [facility] - [address] [address] 12/02/2003 16:38:03 12/02/2003 16:38:14 [id number] [facility] , [address] [address] 12/05/2003 12:49:12 12/06/2003 09:03:29 [id number] [facility] , [facility] [address] [place] [address] 12/05/2003 00:00:00 06/01/2008 02:02:29 [id number] MATTI Chavez, [facility], [address] [place] [address] 02/13/2004 13:02:11 02/14/2004 10:00:21 [id number] MD SABINO Nicole, [facility], [address] [place] [address] 12/04/2004 16:15:51 06/01/2008 02:02:29 [id number] MATTI Chavez, [facility], [address] [place] [address] 01/18/2005 14:06:53 01/19/2005 10:49:37 [id number] Judith Harman MD , [facility], [address] [place] [address] 03/06/2005 14:20:43 06/01/2008 02:02:29 [id number] MATTI Chavez, [facility], [address] [place] [address] 11/01/2005 11:21:36 06/01/2008 02:02:29 [id number] MATTI Hawkins, [facility], [address] [place] [address] 12/17/2006 13:24:05 12/17/2006 16:27:46 [id number] Sea Marie MD , [facility], [address] [place] [address] 02/16/2007 09:37:39 02/18/2007 11:32:05 [id number] [facility] - [address] [address] 02/16/2007 10:15:30 02/16/2007 10:15:38 [id number] [facility] - [address] [address] 04/24/2007 11:31:52 04/24/2007 11:31:59 [id number] MATTI Chavez, [facility], [address] [place] [address] 04/24/2007 09:58:06 06/01/2008 02:02:29 [id number] MATTI Chavez, [facility], [address] [place] [address] 07/15/2007 09:34:50 06/01/2008 02:02:29 [id number] MATTI Chavez, [facility], [address] [place] [address] 07/07/2008 10:58:21 07/11/2008 14:44:44 [id number] MATTI Chavez, [facility], [address] [place] [address] 02/01/2009 10:58:26 02/03/2009 10:32:18 [id number] [facility] Rad[facility] , [facility] [address] [place] [address] 02/08/2009 10:58:30 02/13/2009 10:22:24 [id number] [facility] - [facility] [address] [place] [address] 02/08/2009 11:01:12 02/08/2009 11:01:34 [id number] [facility] , [address] [address] 06/12/2009 10:45:17 06/13/2009 15:13:01 [id number] MATTI Chavez, [facility], [address] [place] [address] 11/13/2010 15:11:39 11/13/2010 16:16:06 [id number] MD SABINO Bradley, [facility], [address] [place] [address] 04/29/2012 12:03:17 04/29/2012 12:25:41 [id number] MATTI Chavez, [facility], [address] [place] [address] 05/21/2012 13:14:53 05/21/2012 14:03:20 [id number] MATTI Chavez, [facility], [address] [place] [address] 09/15/2012 09:48:39 09/15/2012 10:53:12 [id number] MATTI Chavez, [facility], [address] [place] [address] 09/25/2012 09:14:23 09/25/2012 10:07:42 [id number] Judith Padilla NP , [facility], [address] [place] [address] 07/23/2013 14:18:09 07/26/2013 14:06:23 Palpitations 23336349 Anxiety 81477754 [id number] MD SABINO Biggs, [facility], [address] [place] [address] 11/24/2013 10:54:33 11/24/2013 15:18:18 Adult health examination 169466216 see Risk Assessment and Lifestyle Change Counseling section above Counseling [id number] Perimenopa usal disorder 009432765 [id number] Amador Barroso MD , [facility], [address] [place] [address] 09/05/2014 10:35:58 09/06/2014 09:29:51 Pain of multiple joints 18924893 Patient with diffuse finger joint pain. Also with associated fatigue and some perimenopa usal symptoms. Patient is concerned about Lyme disease. Will check Lyme Ab, CBC, ESR, TSH, BARBARA and RF. Will monitor for any worsening symptoms. Otalgia 31362039 Patient with right-side d ear ache. Recent URI symptoms. Also with right maxillary sinus congestion . Encouraged to use nasal saline irrigation . Has tried decongesta nt without significan t relief. Also recommende d oral antihistam ine. No clinical evidence of otitis media or otitis externa. No pain over the temporal artery area. [id number] Huy Padilla MD , [facility], [address] [place] [address] 03/01/2015 11:51:04 03/09/2015 14:09:44 Urinary tract infectious disease 79223093 N39.0 I'm no sure this is a uti- is on docycyline which would treate e.coli. need to await u/c results. no rx prescribed . I doubt the sx are from the med, but pt stopped med anyway. Increased frequency of urination 240362877 R35.0 [id number] MATTI Chavez , [facility], [address] [place] [address] 03/22/2015 10:51:45 03/22/2015 12:03:25 Adult health examination 481367355 Z00.00 see Risk Assessment and Lifestyle Change Counseling section above Counseling 610013234 Z71 .9 Menopausal syndrome 1237 73042 N95.9 Pain of mu ltiple joints 41311041 M25.50 being tx/[facility] for lyme- neg western blot. [id number] Sea Marie MD , [facility], [address] [place] [address] 06/05/2016 13:26:05 06/05/2016 15:01:59 Adult health examination 443194224 Z00.00 see Risk Assessment and Lifestyle Change Counseling section above Counseling 525906761 Z71 .9 Screening mammography 24 084684 Z12.31 Screening for malignant neoplasm of cervix 957579671 Z12.4 Perimenopa usal disorder 824667474 N95.9 supportive measures reviewed- discussed risk with estrogen/p rogeterone - f/u if any pelvic pain, irregular bleeding or peristant joint pain Active or passive immunization 986660643 Z23 [id number] Sea Marie MD , [facility], [address] [place] [address] 06/11/2017 15:05:25 06/12/2017 07:42:42 Adult health examination 776395683 Z00.00 see Risk Assessment and Lifestyle Change Counseling section above Counseling 917413528 Z71 .9 Mass of buccal mucosa 13 60988256 9789500 K13.79 will f/u with oral surgeon. pt states will schedule, decline referral [id number] Aleida Zelaya MD , [facility], [address] [place] [address] 10/01/2017 10:50:07 10/01/2017 11:50:10 Pharyngitis 702583777 J02.9 URI/viral syndromeen c throat carehydrat ion, restsee pt instr Cough 93872760 R05 tx coughno evidence pna on exam or hx Chest pain 19549219 R07. 9 pt with chest pain that is very rare and not current but described as crushing and radiating to jaw, resolves on own after 15 minutes generallyE CG today in office normalwill get labs and exercise stress test [id number] MATTI Chavez , [facility], [address] [place] [address] 07/15/2018 16:00:31 07/16/2018 08:28:54 Adult health examination 277390974 Z00.00 see Risk Assessment and Lifestyle Change Counseling section above Counseling [id number] Z71 .9 Depression screening 171 470836 Z13.89 depression screening tool administer ed, entered into emr, scored and discussed, time greater than 7.5 minutes Screening procedure 2012 5006 Z13.9 [id number] Sea Marie MD , [facility], [address] [place] [address] 08/25/2019 10:32:53 08/26/2019 08:40:12 Lesion of skin of breast [id number] 58408 L98.8 discussed reassuring that it completely resolveds in day- suspect due to skin dryness- plan- use eucerin cream 1-2x/day as barrier on areolas of breast, f/u if not resolving in coming months- sooner any worsening. plan is to do mammogram- this yr when pandemic enables pt to come in- pt agrees with plan [id number] Sea Marie MD , [facility], [address] [place] [address] 12/13/2019 16:14:53 12/24/2019 12:06:39 Insomnia 184494636 G47.00 Gastroesop hageal reflux disease 221961036 K21.9 start famotodine 20 bid, reviewed triggers Chest pain 09734536 R07. 9 with negative stres test, no related to activity suspect due to gerd, keep diary re agg factors and for chest tenderness [id number] Sea Marie MD , [facility], [address] [place] [address] 02/23/2020 08:15:43 02/24/2020 12:38:01 Screening for malignant neoplasm of colon 556340633 Z12.11 Referral for a DIRECT booked colonoscop y. This patient is a healthy ASA Class 1 or 2 patient (only mild systemic disease), or a STABLE, well controlled insulin dependent diabetic. They do not have serious cardiac disease ie PR/angiopl asty within 1 year, symptomati c CHF; renal failure with CKD 4 or 5; take Coumadin, Plavix, Aggrenox, etc. Abdominal bloating 48954 9008 R14.0 hx constipati on- correction, will increase time in AM for hot drink, add fiber agent hs 1 tbsp, f/u in coming month. pt also due for colonoscop y screening- [facility] Screening for malignant neoplasm of cervix 350758625 Z12.4 will schedule for pap smear in coming months- 3 yr, [facility] cryosurger y - pt would like to do [id number] Aleida Zelaya MD , [facility], [address] [place] [address] 03/02/2020 12:28:49 03/03/2020 08:47:37 Screening mammography 68473788 Z12.31 Abdominal pain 03066069 R10.9 3 weeks increasing , associated constipati [...] passing Screening for malignant neoplasm of colon 381845275 Z12.11 Constipation 90876816 K5 9.00 see notes above [id number] Sea Marie MD , [facility], [address] [place] [address] 03/29/2022 15:18:22 03/29/2022 16:10:45 Adult health examination 730691844 Z00.00 see Risk Assessment and Lifestyle Change Counseling section above Counseling [id number] Z71 .9 including cardiovasc ular risk reduction counseling Depression screening 171 023740 Z13.31 depression screening tool administer ed, entered into emr, scored and discussed, time greater than 7.5 minutes Screening for alcohol abuse 802058979 Z13.39 Fatigue 97702217 R53.83 Screening for malignant neoplasm of colon 401775355 Z12.11 pt declines despite knowing risk of infection and Screening mammography 24 282637 Z12.31 pt declines testing despite knowing risk of infection and [id number] Sea Marie MD , [facility], [address] [place] [address] 06/11/2024 16:08:38 06/14/2024 12:11:09 Adult health examination 859394481 Z00.00 see Risk Assessment and Lifestyle Change Counseling section above Depression screening 171 368276 Z13.31 depression screening tool administer ed Screening for alcohol abuse 273147749 Z13.39 Alcohol use screening tool administer ed Hyperlipidemia 81168923 E78.5 Screening for malignant neoplasm of colon 314998828 Z12.11 pt declines despite knowing risk of infection and Vitamin D deficiency 347 80687 E55.9 Cobalamin deficiency 190 789047 E53.8 low animla products [id number] Sea Marie MD , [facility], [address] [place] [address] 07/16/2024 14:47:05 07/21/2024 15:25:50 Pain in pelvis 16344579 R10.2 [id number] Sea Marie MD , [facility], [address] [place] [address] 10/06/2024 14:08:35 10/12/2024 15:34:02 Epigastric pain 59439536 R10.13 Differenti al dx includes hiatal hernia, cholelithi asis, GERD.Will check labs, u/s - Has GI appt November 1Call if sx recur before then [id number] Sea Marie MD , [facility], [address] [place] [address] 10/27/2024 10:45:35 10/28/2024 13:02:57 Gastro-esophageal reflux disease with esophagitis 727255878 K21.00 start famotodine 20 bid, trial to decrease tenderness and pt will keep diary to record, tx and how it effects abd symptoms- reviewed triggers for gerd, f/u with GI re abd pain, bloating and gerd- as sched Atypical chest pain 1025 76109 R07.89 with negative stress test, no related to activity suspect due to gerd, keep diary re agg factors and for chest tenderness atypical pain- exercise stress test to scheduled, no FH, BP and LDL at goal Health Concerns Section Related Observation LastModified by Organization Detai ls LastModified Time None Recorded Concern Status LastModified by Organization Details LastModified Time None Recorded Advance Directives Directive N: Payers Insurance Date Sequence Insurance Name Policy Number Policy Puckett Covered Member ID Puckett Member ID Guarantor Name 09/12/2023 1 [facility] [id number] Lea Marcus [id number] Lea Marcus 09/12/2023 1 [facility] Lea Marcus [id number] Lea Marcus 10/27/2024 1 [employer] [facility] (EPO) [id number] Lea Marcus [id number] Lea Marcus 09/30/2005 1 [facility]: HMO MICHAEL [id number] Sylvester Phipps [id number] Lea Marcus 05/18/2012 1 [facility] [id number] Sylvester Phipps [id number] Lea De Santiago Amrit 09/12/2023 1 [place] [id number] Lea De Santiago Amrit [id number] Lea De Santiago Amrit 10/09/2001 1 *SELF PAY* Sh dejon De Santiago Amrit 09/12/2023 1 [employer] Lea De Santiago Marcus [id number] Lea De Santiago Amrit 03/05/2016 1 [place] [id number] Sylvester Phipps [id number] Lea De Santiago Amrit 09/12/2023 1 [facility] (HMO) [id number] Lea De Santiago Amrit [id number] Lea De Santiago Amrit 09/12/2023 1 [facility] OPEN ACCESS PLUS [id number] Lea De Santiago Amrit [id number] Lea De Santiago Amrit 09/12/2023 1 [facility] [id number] Lea De Santiago Amrit [id number] Lea De Santiago Amrit Notes Date Note Type Note Provider Name and Address Organization Details Recorded Time 03/29/2022 text/html Physical Exam/FemaleReported bypatient.PHAPatient is here [...] Risk Assessment:No evidence of abuse/neglect MATTI Chavez [address] [place] [address], [phone], [facility] 04/02/2022 22:26:11 06/11/2024 text/html Physical Exam/FemaleReported [...] and drinks alcohol only occasionally. MATTI Chavez [address] [place] [address], [phone], [facility] 06/13/2024 14:52:44 07/16/2024 text/html Pt presents for [...] or stool cards done previously. MATTI Chavez [address] [place] [address], [place], [phone], [facility] 07/19/2024 14:15:23 10/06/2024 text/html pt seen in the E R in [place] on 10/03/24 - c/o chest painpt questions if she has a hiatal hernia. c/o pain, belching, burning in stomach, uncomfortable below bra line. has consult with GI but not until November & thinks needs to see them sooner. ongoing BM issuesvomiting before ER visit Constipation since Jun - more reg nownever [place] colonoscopyWhile [place] - chest pain at night - all nightwent to ER - 12/19 - Tums, Pepcid did not work4 ASA at ERTroponins normal, ETT in past normal burping a lot, diaphragmatic discomfotlifted large aurelio pot awhile ago.decreased appetite - early satiety5# WGT LOSS since May pain now gonehas GI appt November 09 - [facility] Sunshine Millan NP [address] [place], [phone], [facility] 10/08/2024 13:05:46 10/27/2024 text/html Pt presents for lab review History of Present IllnessThe patient is a 54 year old who presents with ongoing abdominal discomfort.They experience persistent abdominal discomfort that is not localized or radiating. There are no associated symptoms such as nausea, vomiting, or changes in bowel habits. had ultrasound sched and GI eval upcoming pt seen in ER for chest pain that lasted > 24 HRS- REVIEW of discharge summary recommended exercise stress test, previous in 2019 negative, pt has not had any chest pain since ER visit, pt had not done any repetitive movements, she states today when she palpates sternos margin has some tendernessPMH intermittent gerd- has resolved with tums use. today on exam states tender over epigastric MATTI Chavez [address] [place], [phone], [facility] 10/27/2024 20:20:32 OBGyn Episode No OBEpisode recorded.
== END 2024-11-03 09:18 | disposition home or self-care (01) ==
LOC: HO.US 09:17
PROVIDERS: PCP Physician Assistant; Visit Provider Family Medicine
DX: R10.13 Epigastric pain (principal)
CPT/HCPCS: 76700

== ENCOUNTER → 2024-11-03 09:34 | Outpatient (BNV) | payer OTHER, SELFPAY | PROVIDERS: PCP Physician Assistant; Visit Provider Radiology Diagnostic Radiology | DX: N20.0 Calculus of kidney (principal); K76.89 Other specified diseases of liver; K82.4 Cholesterolosis of gallbladder | CPT/HCPCS: 76700 ==

== ENCOUNTER 2024-11-09 12:17 | Outpatient (AMB) | payer OTHER, SELFPAY ==
--- NOTE | 2024-11-09 12:23 | A.OFFVIS_ITS ---
Vital Signs 11/09/24 12:27 Height 5 ft 6 in Weight 134 lb BMI 21.6 BP 132/51 L Blood Pressure Location Lt brachial Pulse 66 Pulse Oximetry (%) 100 Oxygen Delivery Method Room Air Intake Visit Reasons: [place] Screening / Constipation Intake Note: Patient new consult for [place] Screening / Constipation. Patient cc: abdominal bloating, abdominal discomfort, burping and constipation. Faculty Criminal Justice Required: No Accompanied by: Self / Same As Patient Allergies morphine Allergy (Intermediate, Verified 11/09/24 12:25) Hives HPI HPI [place] Screening / Constipation: Details: Patient is a 54-year-old female with PMH of anxiety. Referred by PCP for pre colonoscopy screening. Lea reports constipation and bloating that began in June of this year. She reports experiencing incomplete evacuation and changes in her bowel habits, initially not having bowel movements for up to a week at a time. After implementing bowel training techniques, she began having more regular movements, but now reports constipation is recurring. She describes her stools as varying in size from small rabbit pellets to medium-sized, with very rare large bowel movements. The consistency is soft, without diarrhea. Bowel movements occur approximately every couple of days. She reports significant bloating, which is present even when she has not eaten and is worse when sitting down. She describes feeling like everything is crunched and squished together in her abdomen when seated. The bloating is constant, occurring daily, and is very uncomfortable but not painful. She denies noticing any blood in her stools, nausea, vomiting, or abdominal pain. She reports frequent burping, rare episodes of heartburn, and recalls an incident of unrelenting chest pain on that led to an [place] visit [place] with negative workup results. Carbonated drinks, particularly sparkling water, exacerbate her symptoms and cause stomach pain. She has tried MiraLax, magnesium citrate supplements, and completed a trial of Pepcid without improvement in bloating. She reports purposely restricting her food intake to manage bloating, though her appetite remains unchanged. She denies significant weight changes, with weight fluctuating between 129-135 pounds. Patient denies: fever/chills, regurgitation, dysphasia, unintentional wt loss or melena/hematochezia. 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 [facility] Medical History (Updated 11/09/24 @ 17:44 by Heather Mcclure CNP) Chest pain Gallbladder polyp Change in stool Colon cancer screening Family History Paternal Grandmother Uterus cancer Mother HTN (hypertension) Radha's disease Social History (Updated 11/09/24 @ 12:41 by Kelsy Jasso) Household Members: Family Alcohol intake: current Alcohol intake frequency: holidays/special occasions only Patient Tobacco Use Status: Never used Tobacco Review of Systems Const Reports as per HPI ENT Reports as per HPI Card Reports as per HPI Resp Reports as per HPI GI Reports as per HPI Reports as per HPI Physical Exam Vital Signs: Last Vital Signs Pulse 66 11/09/24 12:27 BP 132/51 L 11/09/24 12:27 Pulse Ox 100 11/09/24 12:27 Oxygen Delivery Method Room Air 11/09/24 12:27 BMI result Body Mass Index 21.6 Const General: healthy appearing, no acute distress and well developed Nutritional Appearance: well nourished Orientation/consciousness: patient oriented x3 HEENT Head: Yes normal to inspection, Yes normocephalic and Yes atraumatic Face and sinus: Yes normal facial exam Eyes General: appearance normal, both eyes and all related structures Neck Neck: Yes normal visual inspection Resp Effort & Inspection: normal respiratory effort, able to speak in complete sentences, no tracheal deviation and symmetric chest movement Auscultation: clear to auscultation bilaterally Cardio Jugular venous distension: no JVD Rate: regular rate Rhythm: regular rhythm Heart sounds: S1 normal heart sound present, S2 normal heart sound present, no gallops and no murmurs GI Inspection: Yes normal to inspection and No distended Palpation (GI): Soft to palpation, not firm, nontender and No hepatosplenomegaly present Auscultation: Hyperactive bowel sounds present Neuro General: patient oriented x3 Gait exam (Neuro): Normal gait present Psych Appearance: grossly normal Mental Status: mental status grossly normal Speech and movement: Normal speech and movement present Affect: normal affect Attitude: cooperative Thought process: Normal thought process present Thought content: Normal thought content present Insight: Good insight present (Psych) Judgement: Good judgement present (Psych) Assessment & Plan Assessment & Plan (1) Colon cancer screening: Code(s): Z12.11 - Encounter for screening for malignant neoplasm of colon Category: Medical Plan: Due for index screening colonoscopy Medications: -prescriptions for laxative tablets and MiraLax sent to pharmacy; instructions for Gatorade purchase and clear liquid diet given. Patient educated on scheduling process, procedure preparation, including avoiding certain foods and ensuring clear liquid intake Advised on necessity for ride post-procedure due to sedation. (2) Change in stool: Code(s): R19.5 - Other fecal abnormalities Category: Medical Plan: Constipation and bloating - Incomplete evacuation. Reassuring labs collected 07/19/2024; no anemia, normal renal function and LFTs. Discussed imaging given persistent symptoms. However, Lea declined and would like to wait until after the colonoscopy before imaging is ordered. - Prescribe simethicone for bloating relief. - Order celiac disease screening and inflammatory markers. - Schedule H. pylori breath test in 2 weeks. - Schedule upper endoscopy in conjunction with colonoscopy for further evaluation of esophagus and stomach. - Recommend low FODMAP diet trial. - Consider CT scan if symptoms persist after negative H. pylori test and colonoscopy. (3) Gallbladder polyp: Code(s): K82.4 - Cholesterolosis of gallbladder Category: Medical Plan: - Multiple polyps with largest 7mm, increased from questionable 2mm in 2020. - Recommend follow-up ultrasound in 6-12 months to be ordered by PCP - Consider general surgery referral, defer to PCP - Monitor for symptoms of gallbladder issues (epigastric pain, right upper quadrant pain, nausea) (4) Chest pain: Code(s): R07.9 - Chest pain, unspecified Category: Medical Qualifiers: Chest pain type: unspecified Qualified Code(s): R07.9 - Chest pain, unspecified Plan: Episode of unrelenting chest pain on , ER workup negative for cardiac issues. - Await results of upcoming stress test. -Cardiology referral for pre-op clearance - Educate on GERD symptoms and triggers. -ER precautions reviewed. Plan Follow up includes: Nurse visit in 2 weeks for H pylori testing Provider follow-up in 8 weeks Time: I spent a total of 50 minutes on the date of encounter which includes: Preparing to see the patient (reviewed previous documentation, test results and medical history) Performing a medically appropriate exam and/or evaluation Ordering medications, tests, and procedures Documenting clinical information in the health record Orders: Orders C Reactive Protein Today R19.5 - Other fecal abnormalities Transglutaminase IgA Today R19.5 - Other fecal abnormalities Referrals Cardiology Referral Z01.818 - Encounter for other preprocedural examination Medications: New polyethylene glycol 3350 (Miralax) per colonoscopy prep instructions 238 grams PO ONCE 238 grams 0RF simethicone (Gas Relief (simethicone)) 4 times daily as needed after meals and at bedtime 125 mg PO BID-QID PRN 90 caps 1RF gas bisacodyl Take four tablets once for 1 day per colonoscopy instructions 5 mg PO ONCE 4 tabs 0RF 1 day Coding Level of Care Code New Pt New Pt Level 4 (86753) Patient Type New Diagnoses Colon cancer screening Z12.11 Change in stool R19.5 Gallbladder polyp K82.4 Chest pain, unspecified type R07.9 Chest pain type: unspecified
[2024-11-09 12:27] VITALS: BP 132/51; PULSE 66; O2SAT 100; BMI 21.6
--- NOTE | 2024-11-09 12:27 | A.OFFVIS_ITS ---
Vital Signs 11/09/24 12:27 Height 5 ft 6 in Weight 134 lb BMI 21.6 BP 132/51 L Blood Pressure Location Lt brachial Pulse 66 Pulse Oximetry (%) 100 Oxygen Delivery Method Room Air Intake Visit Reasons: [place] Screening / Constipation Allergies morphine Allergy (Intermediate, Verified 11/09/24 12:25) Hives HPI HPI [place] Screening / Constipation: Details: Patient is a 54-year-old female with PMH of anxiety. Referred by PCP for pre colonoscopy screening. Patient is accompanied by [] Allergy [] Patient denies: fever/chills, n/v, appetite changes, pyrosis, regurgitation,dysphasia, unintentional wt loss, ab pain or melena/hematochezia. Social hx: []ETOH use []recreational drug use [] nicotine dependence, cessation [] - family hx as below -[] personal hx of CA -[] significant cardiopulmonary history -tolerated anesthesia in the past [] difficulty. [facility] Medical History (Updated 11/09/24 @ 12:34 by Heather Mcclure CNP) Colon cancer screening Review of Systems Const Reports as per HPI ENT Reports as per HPI Card Reports as per HPI Resp Reports as per HPI GI Reports as per HPI Reports as per HPI Physical Exam Const General: healthy appearing, no acute distress and well developed Nutritional Appearance: well nourished Orientation/consciousness: patient oriented x3 HEENT Head: Yes normal to inspection, Yes normocephalic and Yes atraumatic Face and sinus: Yes normal facial exam Eyes General: appearance normal, both eyes and all related structures Neck Neck: Yes normal visual inspection Resp Effort & Inspection: normal respiratory effort, able to speak in complete sentences, no tracheal deviation and symmetric chest movement Auscultation: clear to auscultation bilaterally Cardio Jugular venous distension: no JVD Rate: regular rate Rhythm: regular rhythm Heart sounds: S1 normal heart sound present, S2 normal heart sound present, no gallops and no murmurs GI Inspection: Yes normal to inspection and No distended Palpation (GI): Soft to palpation, not firm, nontender and No hepatosplenomegaly present Auscultation: normal bowel sounds Neuro General: patient oriented x3 Gait exam (Neuro): Normal gait present Psych Appearance: grossly normal Mental Status: mental status grossly normal Speech and movement: Normal speech and movement present Affect: normal affect Attitude: cooperative Thought process: Normal thought process present Thought content: Normal thought content present Insight: Good insight present (Psych) Judgement: Good judgement present (Psych) Assessment & Plan Assessment & Plan (1) Colon cancer screening: Code(s): Z12.11 - Encounter for screening for malignant neoplasm of colon Category: Medical Coding Diagnoses Colon cancer screening Z12.11
--- OUTSIDE RECORDS SUMMARY | 2024-11-09 13:16 | XMS_ITS | Clinical Summary ---
Author Organization [address] Address [address] [place] [address] Care Team Providers Care Learning And Development Intern Name Role Phone Irish Marie Primary Care Provider [phone] Allergies Active Allergy Reactions Criticality Noted Date Comments Morphine Hives High 08/24/2020 Medications No known medications Active Problems No known active problems Encounters Date Type Department Care Team Description 10/04/2024 11:19 AM EDT - 10/04/2024 12:45 PM EDT Emergency [facility] [address] [place] [id number] Marco Antonio Miranda MD Chest pain, unspecified type (Primary Dx) Discharge Disposition: Home or Self Care 10/04/2024 10:30 AM EDT Office Visit [facility] [address] [id number] Monica Horton APRN Chest pain, unspecified type (Primary Dx) 10/04/2024 Travel from Last 3 Months Social History Tobacco Use Types Packs/Day Years Used Date Smoking Tobacco: Never Assessed Interpersonal Safety Answer Date Record ed Is there anyone in your life that is hurting or threatening you in anyway? no 10/04/2024 Physical Indicators of Abuse No evidence of phys ical abuse 10/04/2024 Comments Unknown Sex and Gender Information Value Date Recorded Sex Assigned at Not on file Legal Sex Female 10:18 AM EDT Gender Identity Not on file Sexual Orientation Not on file Last Filed Vital Signs Vital Sign Reading Time Taken Comments Blood Pressure 114/54 10/04/2024 11:29 AM EDT Pulse 78 10/04/2024 11:29 AM EDT Temperature 36.9 C (98.4 F) 10/04/2024 11:24 AM EDT Respiratory Rate 15 10/04/2024 11:29 AM EDT Oxygen Saturation 100% 10/04/2024 11:29 AM EDT Inhaled Oxygen Concentration - - Weight 61.2 kg (135 lb) 10/04/2024 11:24 AM EDT Height 167.6 cm (5' 6 ) 10/04/2024 11:24 AM EDT Body Mass Index 21.79 10/04/2024 11:24 AM EDT Plan of Treatment Health Maintenance Due Date Last Done Comments HIV screening 1982 Hepatitis C screening 09/15/1987 Cervical cancer screening 1990 Breast cancer screening 2009 Lipid disorder screening 2009 Colon cancer screening, Colonoscopy 2014 Pneumococcal Vaccine (50+ years) (1 of 1 - PCV) 09/15/2019 Shingles vaccine (Shingrix) (1 of 2 - Shingrix (RZV) 2 Dose Standard Series) 09/15/2019 Covid-19 vaccine series ( - ) 01/11/2024 Influenza vaccine 01/10/2025 04/10/2012 Tetanus adult (Td q 10,TDAP once) 06/05/2026 06/05/2016, 01/18/2005 Diabetes screening 10/05/2027 10/04/2024 RSV Immunization (1 - 1-dose 75+ series) 2044 Meningococcal Vaccine Aged Out No noam kayla eligible based on patient's age to complete this topic Procedures Procedure Name Priority Date/Time Associated Diagnosis Comments XR CHEST PA AND LATERAL Within 1 hour (STAT) 10/04/2024 11:49 AM EDT COMPREHENSIVE METABOLIC PANEL Routine 10/04/2024 11:39 AM EDT CBC AND DIFFERENTIAL Routine 10/04/2024 11:39 AM EDT COMPREHENSIVE METABOLIC PANEL Routine 10/04/2024 11:39 AM EDT CBC WITH AUTO DIFFERENTIAL Routine 10/04/2024 11:39 AM EDT D-DIMER, QUANTITATIVE STAT 10/04/2024 11:39 AM EDT TROPONIN T HIGH SENSITIVITY, 0 HOUR BASELINE WITH REFLEX (BH GH LMW YH) STAT 10/04/2024 11:39 AM EDT EKG STAT 10/04/2024 11:33 AM EDT from Last 3 Months Results * XR Chest PA and Lateral (10/04/2024 11:49 AM EDT) Anatomical Region Laterality Modality Chest Radiographic Ely ging 10/04/2024 11:5 3 AM EDT Impressions 10/04/2024 11:54 AM EDT No acute cardiopulmonary disease. No focal pneumonia or pleural disease. No focal groundglass opacity. Normal interstitium. Reported and signed by: Damian Bill MD Narrative 10/04/2024 11:54 AM EDT XR CHEST PA AND LATERAL HISTORY: Chest Pain. TECHNIQUE: Frontal and lateral radiographs of the chest. COMPARISON: None. FINDINGS: Airway is midline. Cardiac and mediastinal contours are normal. Interstitium is normal. No discrete confluent parenchymal consolidation or pleural effusion is identified. Osseous structures are unremarkable. Visualized upper abdomen is unremarkable. Procedure Note Damian Bill MD - 10/04/2024 XR CHEST PA AND LATERAL HISTORY: Chest Pain. TECHNIQUE: Frontal and lateral radiographs of the chest. COMPARISON: None. FINDINGS: Airway is midline. Cardiac and mediastinal contours are normal.Interstitium is normal. No discrete confluent parenchymal consolidation orpleural effusion is identified. Osseous structures are unremarkable.Visualized upper abdomen is unremarkable. IMPRESSION: No acute cardiopulmonary disease. No focal pneumonia orpleural disease. No focal groundglass opacity. Normal interstitium. Reported and signed by: Damian Bill MD Marco Antonio Miranda MD [facility] DIAGNOSTIC IMAGING ORDERAB LES Final Result * (ABNORMAL) Comprehensive metabolic panel (10/04/2024 11:39 AM EDT) Sodium 138 136 - 145 mmol/L 10/04/2024 12:18 PM EDT L + [facility] Potassium 4.1 3.5 - 5.1 mmol/L 10/04/2024 12:18 PM [facility] Chloride 107 98 - 107 mmol/L 10/04/2024 12:18 PM [facility] CO2 25 21 - 32 mmol/L 10/04/2024 12:18 PM [facility] Anion Gap 6 5 - 15 mmol/L 10/04/2024 12:18 PM [facility] Glucose 113(H) 65 - 110 mg/dL 10/04/2024 12:18 PM [facility] Comment: Non-fastin-110 mg/dL Fasting (minimum 6 hrs): 65-99 mg/dL BUN 16 7 - 18 mg/dL 10/04/2024 12:18 PM [facility] Creatinine 1.01 0.55 - 1.02 mg/dL 10/04/2024 12:18 PM [facility] Calcium 9.4 8.5 - 10.1 mg/dL 10/04/2024 12:18 PM [facility] Total Protein 6.9 6.4 - 8.2 g/dL 10/04/2024 12:18 PM [facility] Albumin 3.4 3.4 - 5.0 g/dL 10/04/2024 12:18 PM [facility] Globulin 3.5 2.5 - 5.0 g/dL 10/04/2024 12:18 PM [facility] Total Bilirubin 0.6 <1.0 mg/dL 10/04/2024 12:18 PM [facility] Comment:Use of this assay is not recommended for patients undergoing treatment with Eltrombopag due to the potential for falsely elevated results. Alkaline Phosphatase 56 45 - 117 U/L 10/04/2024 12:18 PM [facility] Alanine Aminotransferase (ALT) 25 13 - 56 U/L 10/04/2024 12:18 PM [facility] Aspartate Aminotransferase (AST) 18 15 - 37 U/L 10/04/2024 12:18 PM [facility] eGFR (Creatinine) >60 >=60 mL/min/1. 73m2 10/04/2024 12:18 PM [facility] Comment: [facility] utilizes CKD-EPI Creatinine 2020 to report eGFR. Values < 60 mL/min/1.73 m2 may indicate CKD if present for more than three months AND creatinine is at steady state. The eGFR provides a rough estimate of kidney function. For further guidance, please refer to the CKD: Adult Branch Officer Signature pathway. Creatinine Delta 10/05/19 12:18 PM EDT [facility] Comment:No previous creatini ne <5.00 mg/dL is available within the previous 12 months to calculate a delta creatinine. Blood Venipuncture / Unknown 10/04/2024 11:39 AM EDT 10/04/2024 11:43 AM EDT Marco Antonio Miranda MD LAB BLOOD ORDERABLES Final Res ult Performing Organization Address [facility] Co de Phone Number [facility] [address] [place] [address] * Troponin T High Sensitivity, Emergency; 0 hour baseline AND 1 hour with reflex (3 hour) (1:39 AM EDT) [facility] High Sensitivity Troponin T <6 See Comment ng/L 10/04/2024 12:16 PM EDT [facility] Comment:High Sensitivity Tro ponin T levels should be interpreted in the context of the [facility] Care Signature pathway. Blood Venipuncture / Unknown 10/04/2024 11:39 AM EDT 10/04/2024 11:43 AM EDT Marco Antonio Miranda MD LAB BLOOD ORDERABLES Final Res ult Performing Organization Address [facility] Co de Phone Number [facility] [address] [place] [address] * (ABNORMAL) CBC auto differential (10/04/2024 11:39 AM EDT) [facility] WBC 4.9 4.0 - 11.0 x1000/ L 10/04/2024 11:50 AM EDT [facility] RBC 4.09 4.00 - 6.00 M/ L 10/04/2024 11:50 AM EDT [facility] Hemoglobin 12.8 11.7 - 15.5 g/dL 10/04/2024 11:50 AM EDT [facility] Hematocrit 35.70 35.00 - 45.00 % 10/04/2024 11:50 AM EDT [facility] MCV 87.3 80.0 - 100.0 fL 10/04/2024 11:50 AM EDT [facility] MCH 31.3 27.0 - 33.0 pg 10/04/2024 11:50 AM EDT [facility] MCHC 35.9 31.0 - 36.0 g/dL 10/04[facility]24 [facility] RDW-CV 13.2 11.0 - 15.0 % 10/04/2024 11:50 AM EDT [facility] Platelets 192 150 - 420 x1000/ L 10/04/2024 11:50 AM EDT [facility] MPV 9.6 8.0 - 12.0 fL 10/04/2024 11:[facility] Neutrophils 83.1(H) 39.0 - 72.0 % 10/04/2024 11:50 AM EDT [facility] Lymphocytes 8.8(L) 17.0 - 50.0 % 10/04/2024 11:50 AM EDT [facility] Monocytes 7.1 4.0 - 12.0 % 10/04/2024 11:50 AM EDT [facility] Eosinophils 0.2 0.0 - 5.0 % 10/04/2024 11:50 AM EDT [facility] Basophil 0.2 0.0 - 1.4 % 10/04/2024 11:50 AM EDT [facility] Immature Granulocytes 0.6 0.0 - 1.0 % 10/04/2024 11:50 AM EDT [facility] nRBC 0.0 0.0 - 1.0 % 10/04/2024 11:50 AM EDT [facility] Absolute Lymphocyte Count 0.43(L) 0.60 - 3.70 x 1000/ L 10/04/2024 11:50 AM EDT [facility] Monocyte Absolute Count 0.35 0.00 - 1.00 x 1000/ L 10/04/2024 11:50 AM EDT [facility] Eosinophil Absolute Count 0.01 0.00 - 1.00 x 1000/ L 10/04/2024 11:50 AM EDT [facility] Basophil Absolute Count 0.01 0.00 - 1.00 x 1000/ L 10/04/2024 11:50 AM EDT [facility] Absolute Immature Granulocyte Count 0.03 0.00 - 0.30 x 1000/ L 10/04/2024 11:50 AM EDT [facility] Absolute nRBC 0.00 0.00 - 1.00 x 1000/ L 10/04/2024 11:50 AM T [facility] ANC (Abs Neutrophil Count) 4.07 2.00 - 7.60 x 1000/ L 10/04/2024 11:50 AM EDT [facility] Blood Venipuncture / Unknown 10/04/2024 11:39 AM EDT 10/04/2024 11:45 AM EDT us Marco Antonio Miranda MD LAB BLOOD ORDERABLES Final Res ult [facility] [address] [place] [address] * (ABNORMAL) D-dimer, quantitative (10/04/2024 11:39 AM EDT) D-Dimer 0.74(H) <0.50 mg/L FEU 10/04/2024 11:58 AM EDT [facility] Comment: CLINICAL CUT OFF VALUE 0.50 mg/L FEU A D-Dimer result of > or = 0.50 mg/L FEU is considered positive* A D-Dimer result of < 0.50 mg/L FEU is considered negative This test is intended to be used as an exclusionary test for diagnosis of PE/DVT in outpatients with a low or medium clinical probability. Blood Venipuncture / Unknown 10/04/2024 11:39 AM EDT 10/04/2024 11:45 AM EDT us Marco Antonio Miranda MD LAB BLOOD ORDERABLES Final Res ult Performing Organization Address City/[facility] Co de Phone Number L + M [facility] [address] [place] [address] * EKG (10/04/2024 11:33 AM EDT) Heart Rate 75 bpm LM EKG QRS Interval 83 ms LM EKG QT Interval 403 ms LM EKG QTC Interval 451 ms [facility] EKG P [place] 74 deg LM EKG QRS [place] 62 deg LM EKG T Wave [place] 41 deg [facility] EKG P-R Interval 149 msec [facility] EKG SEVERITY Normal ECG severity [facility] EKG Comment::Sinus rhythm:Electr onically Signed On 10-04-2024 13:19:56 EDT by Sandra Esquivel MD 10/04/2024 11:3 3 AM EDT us Marco Antonio Miranda MD ECG ORDERABLES Edited Result - Final Performing Organization Address [facility] Co de Phone Number [facility] EKG from Last 3 Months Insurance [facility] Care Teams Learning And Development Intern Relationship Specialty Start Date End Date Irish aMrie PA [address] [place] [phone] PCP - General Internal Medicine 10/04/24
--- OUTSIDE RECORDS SUMMARY | 2024-11-09 13:16 | XMS_ITS ---
Author Name [facility] Organization Unknown Results Test Name/Text Value Interpretation Date Range Source ALP SerPl-cCnc 56.0 U/L 10/04/2024 45 - 117 [facility] Potassium SerPl-sCnc 4.1 mmol/L 10/04/2024 3.5 - 5 .1 [facility] GFR/BSA.pred SerPlBld YYL-AGO-HtCLyt >60.0 mL/min/1.73m2 10/04/2024 - [facility] BUN SerPl-mCnc 16.0 mg/dL 10/04/2024 7 - 18 [facility] Chloride SerPl-sCnc 107.0 mmol/L 10/04/2024 98 - 1 07 [facility] Bilirub SerPl-mCnc 0.6 mg/dL 10/04/2024 - 1 [facility] Albumin SerPl BCG-mCnc 3.4 g/dL 10/04/2024 3.4 - 5 [facility] Anion Gap3 SerPl-sCnc 6.0 mmol/L 10/04/2024 5 - 15 [facility] Sodium SerPl-sCnc 138.0 mmol/L 10/04/2024 136 - 14 5 [facility] ALT SerPl w/o P-5'-P-cCnc 25.0 U/L 10/04/2024 13 - 56 [facility] BKR CREATININE DELTA 10/04/2024 [facility] Globulin Plas-mCnc 3.5 g/dL 10/04/2024 2.5 - 5 [facility] Prot SerPl-mCnc 6.9 g/dL 10/04/2024 6.4 - 8.2 [facility] Calcium SerPl-mCnc 9.4 mg/dL 10/04/2024 8.5 - 10.1 [facility] HCO3 SerPl-sCnc 25.0 mmol/L 10/04/2024 21 - 32 Y [facility] AST SerPl w P-5'-P-cCnc 18.0 U/L 10/04/2024 15 - 37 [facility] Glucose SerPl-mCnc 113.0 mg/dL Above high normal 10/04/2024 65 - 110 [facility] Creat SerPl-mCnc 1.01 mg/dL 10/04/2024 0.55 - 1.02 [facility] Troponin T SerPl HS-mCnc <6.0 ng/L 10/04/2024 - [facility] D dimer FEU PPP-mCnc 0.74 mg/L FEU Above high normal 025 - 0.5 [facility] WBC # Bld Auto 4.9 x1000/uL 10/04/2024 4 - 11 Y [facility] nRBC/100 WBC Bld Auto-Rto 0.0 % 10/04/2024 0 - 1 [facility] Imm Granulocytes/leuk NFr Bld Auto 0.6 % 10/04/2024 0 - 1 [facility] Lymphocytes # Bld Auto 0.43 x 1000/uL Below low normal 10/04/2024 0.6 - 3.7 [facility] Neutrophils/leuk NFr Bld Auto 83.1 % Above high normal 10/04/2024 39 - 72 [facility] Lymphocytes/leuk NFr Bld Auto 8.8 % Below low normal 10/04/2024 17 - 50 [facility] Monocytes # Bld Auto 0.35 x 1000/uL 10/04/2024 0 - 1 [facility] Hct VFr Bld Auto 35.7 % 10/04/2024 35 - [facility] Bas[facility]/leuk NFr Bld Auto 0.2 % 10/04/2024 0 - 1.4 [facility] Basophils # Bld Auto 0.01 x 1000/uL 10/04/2024 0 - 1 [facility] Hgb Bld-mCnc 12.8 g/dL 10/04/2024 11.7 - 15.5 [facility] Eosinophil/leuk NFr Bld Auto 0.2 % 10/04/2024 0 - 5 [facility] Monocytes/leuk NFr Bld Auto 7.1 % 10/04/2024 4 - 12 [facility] Neutrophils # Bld Auto 4.07 x 1000/uL 10/04/2024 2 - 7.6 [facility] Platelet # Bld Auto 192.0 x1000/uL 10/04/2024 150 - 420 [facility] PMV Bld Auto 9.6 fL 10/04/2024 8 - [address] Eosinophil # Bld Auto 0.01 x 1000/uL 10/04/2024 0 - 1 [facility] RBC # Bld Auto 4.09 M/uL 10/04/2024 4 - 6 [facility] MCH RBC Qn Auto 31.3 pg 10/04/2024 27 - 33 [facility] Imm Granulocytes # Bld Auto 0.03 x 1000/uL 10/04/2024 0 - 0.3 [facility] MCV RBC Auto 87.3 fL 10/04/2024 80 - [address] RDW RBC Auto-Rto 13.2 % 10/04/2024 11 - 15 [facility] nRBC # Bld Auto 0.0 x 1000/uL 10/04/2024 0 - 1 [facility] MCHC RBC Auto-mCnc 35.9 g/dL 10/04/2024 31 - 36 [facility] Encounters Encounter Type Encounter Reason Primary Diagnosis Location Date Emergency Chest pain, unspecified Chest pain, unspecified [facility] 10/04/2024 Care Team Organization Name Specialty Phone Email Start Date End Da nusrat [facility] 10/04/2024 11/02/2024 [facility] GOMEZ [facility]BURN Primary Care 10/04/2024 [facility] 10/04/2024
--- OUTSIDE RECORDS SUMMARY | 2024-11-09 13:16 | XMS_ITS | Data Portability ---
Author Organization [facility], [facility] Address [address] [place] [address] Care Team Providers Care Web Offset Press Feeder Name Role Phone SEA MARIE Primary Care Provider GOMEZ MARIE Primary Care Provider [phone] ARTURO SÁNCHEZ OTHER [facility] Internal Medici ne SUNIL DE [...] of immunizations. - Encouraged healthy lifestyle choices. 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 - Schedule fasting lab tests at [facility], including vitamin D and B vitamins. [...] was notified that the provider location is [facility] Patient location: home During the visit the patient s medical history and medical record were reviewed. The patient was notified to call our office for worsening or urgent symptoms. [email or web address] Not available 10/27/2024 10:48:04 Plan of Treatment Reminders Order Date Submit Date Provider Last Modified By Organization Details Last Modified Time Details Appointments None recorded. Lab lipase, serum or plasma 2024 025 [facility] (Er), [address] [place] [address], [address], 16:00:46 amylase + lipase, serum 2024 025 [facility] ([facility]), [address] [place] [address], [address], 12:58:34 hepatic function panel, serum 2024 025 [facility] ([facility]), [address] [place] [address], [address], 5 10:30:33 urinalysis , dipstick 2024 025 [facility], [address] [place], [address], 16:35:20 CBC 2024 025 [facility] ([facility]), [address] [place] [address], [address], 16:03:54 CMP, serum or plasma 2024 025 [facility] ([facility]), [address] [place] [address], [address], 14:25:03 fecal occult blood, immunoassa y, stool 2024 025 [facility], [address] [place] [address], [address], 10:44:39 vitamin D, 25-hydroxy , total, serum 2024 025 [facility] ([facility]), [address] [place] [address], [address], 12:40:46 lipid panel, serum 2024 025 [facility] ([facility]), [address] [place] [address], [address], 14:25:04 BMP, serum or plasma 2024 025 [facility] ([facility]), [address] [place] [address], [address], 12:40:46 TSH, serum or plasma 2024 025 [facility] ([facility]), [address] [place] [address], [address], 14:25:04 vitamin B12, serum 2024 025 [facility] ([facility]), [address] [place] [address], [address], 12:40:46 Referral None recorded. Procedures None recorded. Surgeries None recorded. Imaging exercise stress test - 5'5 , 132lbs, no pacer, no medication s to hold 54yo atypical chest pain lasting 36 hrs., eval in ER recommnedi ng stress test [address] Central Scheduling, [address] [place] [address], [address], 14:50:15 US, abdomen, complete - episodic RUQ and epigastric pain - eval for liver or gall bladder issues 2024 025 [facility] (Er), [address] [place] [address], [address], 08:28:24 US, pelvis, complete - 53 yo with 1 month hx of pelvic pain, exam- no masses, FH ovarian cancer 2024 025 [facility] Central Scheduling, [address] [place] [address], [address], 5 08:59:24 US, transvagin al - worsening pelvic pressure with vaginal blaoting, exam- [address] Central Scheduling, [address] [place] [address], [address], 5 14:27:03 Medication Orders famotidine [address] [facility] ([place], [place]Pharmacy #[id number], [address] [place], [address], 11:34:08 Patient TargetsNo targets recorded. Patient Instructions Encounter Date Encounter Id Patient Instructions Last Modified By Organization Details Last Modified Time 03/29/2022 [id number] well visit, wome n 50 to 65: [...] UA glu UA NEGATI VE Not Available [address], [address], 07/16/2024 15:51:06 07/17/19 25 07/16/2024 POC UA clarity UA CLEAR Not Available [address], [address], 07/16/2024 15:51:06 07/17/19 25 07/16/2024 POC UA uro UA 0.2000 Not Available [address], [address], 07/16/2024 15:51:06 07/17/19 25 07/16/2024 POC UA ket UA NEGATI VE Not Available [address], [address], 07/16/2024 15:51:06 07/17/19 25 07/16/2024 POC UA pro UA NEGATI VE Not Available [address], [address], 07/16/2024 15:51:06 07/17/19 25 07/16/2024 POC UA nit UA NEGATI VE Not Available [address], [address], 07/16/2024 15:51:06 07/17/19 25 07/16/2024 POC UA destiny UA NEGATI VE Not Available [facility] [address] [place] [address], [address], 07/16/2024 15:51:06 07/17/19 25 07/16/2024 POC UA pH UA 6.0000 Not Available [facility] [address] [place] [address], [address], 07/16/2024 15:51:06 07/17/19 25 07/16/2024 POC UA SG UA 1.0150 Not Available [facility] [address] [place] [address], [address], 07/16/2024 15:51:06 07/17/19 25 07/16/2024 POC UA color UA YELLOW Not Available [facility] [address] [place] [address], [address], 07/16/2024 15:51:06 07/17/19 25 07/16/2024 POC UA blo UA NEGATI VE Not Available [facility] [address] [place] [address], [address], 07/16/2024 15:51:06 07/17/19 25 07/16/2024 POC UA kinsey UA NEGATI VE Not Available [facility] [address] [place] [address], [address], 07/16/2024 15:51:06 07/19/19 25 07/20/2024 IMMUN OCHEM ICAL FECAL OCCUL T BLOOD ifobt NEGATI VE negati ve Not Available [address], [address], 07/20/2024 10:44:39 08/04/19 25 08/02/2024 US, pelandrea s, compl ete No observ ation record ed. [facility] [address] [place] [address], [address], 08/06/2024 15:45:39 11/04/1911/03/2024 US, abdom en No observ ation record ed. [facility] [address] [place], [address], 11/05/2024 23:00:57 11/04/1911/03/2024 US, abdom en, compl ete No observ ation record ed. [facility] [address] [place], [address], 11/05/2024 23:00:57 Result Notes None recorded. Problems Name Problem SNOMED Code Status Onset Date Resolution Date Notes Provider Name and Address Organization Details Recorded Time Perimenopa usal disorder 441386630 Active MATTI Chavez [address] [place] [address], [address] , [facility] 4 11:42:04 Nausea 252182548 Completed 200603/31/2013 Not Available [facility] 3 02:03:39 Nausea and vomiting 12671168 Completed 200603/31/2013 Not Available [facility] 3 02:03:05 Right lower quadrant pain 552402622 Completed 200303/31/2013 Not Available [facility] 3 02:03:25 Acute cystitis 47234710 Completed 200003/31/2013 Not Available [facility] 3 02:02:31 Lymphadeno ayan 36383070 Completed 200003/31/2013 Not Available [facility] 3 02:03:13 Anxiety state 641660156 Active Not Available [facility] 3 03:06:43 Dizziness 869346684 Completed 200203/31/2013 Not Available [facility] 3 02:02:07 Breast lump 80178419 Active 2007 Not Available [facility] 3 03:06:43 Common cold 84488107 Completed 200003/31/2013 Not Available [facility] 3 02:00:24 Hemorrhage of rectum and anus 162780687 Completed 03/31/2013 Not Available [facility] 3 02:03:16 Abdominal pain 13917837 Completed 200303/31/2013 Not Available [facility] 3 02:01:19 Irregular periods 57281243 Completed 200003/31/2013 Not Available [facility] 3 02:02:18 On examinatio n - a rash Completed 200603/31/2013 Not Available [facility] 3 02:00:45 Female genital organ symptoms 638253543 Completed 200303/31/2013 Not Available [facility] 3 02:03:07 Menopausal symptom 02467606 Completed 03/31/2013 Not Available [facility] 3 02:01:28 Acne 48658145 Active 2003 Not Available [facility] 3 03:06:43 Amenorrhea 34246706 Active Not Available [facility] 3 03:06:43 Cyst of ovary 54071323 Active Not Available [facility] 3 03:06:43 Malaise and fatigue 673905993 Completed 200003/31/2013 Not Available [facility] 3 02:00:14 Vaginitis and vulvovagin itis Completed 200603/31/2013 Not Available [facility] 3 02:01:47 Problem Notes None recorded. Procedures Surgical History Date Name Laterality Status Provider Name and Address Organization Details Recorded Time 0 prevention-card iovascular risk reduction counseling cancelled Genna Correa MA [facility] 11/18/2019 15:22:02 0 prevention-jules al alcohol misuse screening cancelled Genna Correa MA [facility] 11/18/2019 15:22:02 8 POC Strep Testing completed RONNA Cabrera [facility] 10/01/2017 11:06:46 Imaging Results None recorded. Procedure Notes None recorded. Medical Equipment None Reported. Allergies Allergen ID Allergen Name Allergen Category Reaction Reaction Severity Criticality Documentation Date Start Date Code Code System Note Provider Name and Address Organization Details Recorded Time 3901 morphine medicatio n hives Not available Not available 07/07/2008 7052 RxNorm Not Available [facility] 1 06:05:20 Medications Name Sig Start Date [...] t Available famotidin e 20 mg tablet TAKE 1 TABLET BY MOUTH TWICE A DAY active Not Available Not Available No t Available lorazepam 0.5 mg tablet Take 1 [...] Updated DateTime 5 166.37 cm 22.5 kg/m2 00282.1 5 g 67 /min 99 % 99 % 124 mm[Hg] 56 mm[Hg] Marifer Welch [facility] 5 16:18:41 Date Recorded Body height Body mass index (BMI) Body weight Oxygen saturation Oxygen saturation in Arterial blood by Pulse oximetry Heart rate Body temperature Systolic blood pressure Diastolic blood pressure Provider Name and Address Organization Details Last Updated DateTime 5 166.37 cm 22.3 kg/m2 38041.5 6 g 99 % 99 % 61 /min 97.7 [degF] 112 mm[Hg] 72 mm[Hg] Marifer Welch MA [facility] 5 14:57:32 Date Recorded Body height Heart rate Oxygen saturation Oxygen saturation in Arterial blood by Pulse oximetry Body mass index (BMI) Body weight Systolic blood pressure Diastolic blood pressure Provider Name and Address Organization Details Last Updated DateTime 5 166.37 cm 73 /min 99 % 99 % 21.7 kg/m2 00185.5 9 g 90 mm[Hg] 58 mm[Hg] Andrea Lemons [facility] 5 14:42:15 Date Recorded Body height Provider Name an d Address Organization Details Last Updated DateTime 10/27/2024 166.37 cm Marifer Welch [facility] 10/27/2024 10:49:35 Date Recorded Heart rate Body weight Body mass index (BMI) Body height Systolic blood pressure Diastolic blood pressure Provider Name and Address Organization Details Last Updated DateTime 2 78 /min 84997.3 7 g 21.8 kg/m2 167.64 cm 112 mm[Hg] 62 mm[Hg] Betsy Prado [facility] 2 15:41:30 Social History Question Answer [...] Signed And In Chart No CHRIS PHIPPS, [email or web address] Information not available 09/15/2012 CSRP - [...] use any illicit or recreational drugs? No [email or web address] Information not available 03/29/2022 Do you or have you ever used any other forms of tobacco or nicotine? No [email or web address] Information not available 03/29/2022 Do you or [...] Td(adult) unspecified formulation 5 completed Not Available [facility] 03/27/2011 05:21:29 influenza, unspecified formulation 2 completed Odalis Weston MA [facility], [facility] 04/29/2012 12:11:23 Tdap 7 completed Not Available [facility] 05/29/2019 02:29:58 Past Encounters Encounter ID Performer Location Encounter Start Date Encounter Closed Date Diagnosis/Indication Diagnosis SNOMED-CT Code Diagnosis ICD10 Code Diagnosis Note [id number] Odalis Webb M.D . [place], [facility], [address] [place] [address] 10/16/2000 16:30:00 06/01/2008 02:02:29 [id number] MATTI Chavez , [facility], [address] [place] [address] 02/11/2001 09:45:00 06/01/2008 02:02:29 [id number] Doar Chun NP FP, [facility], [address] [place] [address] 03/09/2001 13:30:00 06/01/2008 02:02:29 [id number] JULISSA Meléndez, [facility], [address] [place] [address] 04/17/2001 13:30:00 06/01/2008 02:02:29 [id number] Dora Chun NP FP, [facility], [address] [place] [address] 05/06/2001 13:00:00 06/01/2008 02:02:29 [id number] Blaine Malagon MD , [facility], [address] [place] [address] 08/11/2001 17:00:00 06/01/2008 02:02:29 [id number] MATTI Chavez, [facility], [address] [place] [address] 10/25/2002 11:31:01 06/01/2008 02:02:29 [id number] [facility] - [address] [address] 10/25/2002 12:43:07 06/01/2008 02:02:29 [id number] MATTI Chavez, [facility], [address] [place] [address] 09/30/2003 12:19:10 09/30/2003 15:34:19 [id number] MATTI Chavez, [facility], [address] [place] [address] 12/02/2003 14:07:01 12/03/2003 11:03:47 [id number] [facility] - [address] [address] 12/02/2003 16:38:03 12/02/2003 16:38:14 [id number] [facility] Radiology , [address] [address] 12/05/2003 12:49:12 12/06/2003 09:03:29 [id number] [facility] Radiology , [facility] [address] [place] [address] 12/05/2003 00:00:00 06/01/2008 02:02:29 [id number] MATTI Chavez , [facility], [address] [place] [address] 02/13/2004 13:02:11 02/14/2004 10:00:21 [id number] Judith Harman MD , [facility], [address] [place] [address] 12/04/2004 16:15:51 06/01/2008 02:02:29 [id number] MATTI Chavez, [facility], [address] [place] [address] 01/18/2005 14:06:53 01/19/2005 10:49:37 [id number] Judith Harman MD , [facility], [address] [place] [address] 03/06/2005 14:20:43 06/01/2008 02:02:29 [id number] MATTI Chavez , [facility], [address] [place] [address] 11/01/2005 11:21:36 06/01/2008 02:02:29 [id number] MATTI Hawkins , [facility], [address] [place] [address] 12/17/2006 13:24:05 12/17/2006 16:27:46 [id number] Sea Marie MD , [facility], [address] [place] [address] 02/16/2007 09:37:39 02/18/2007 11:32:05 [id number] [facility] - [address] [address] 02/16/2007 10:15:30 02/16/2007 10:15:38 [id number] [facility] - [facility] [address] [place] [address] 04/24/2007 11:31:52 04/24/2007 11:31:59 [id number] MATTI Chavez, [facility], [address] [place] [address] 04/24/2007 09:58:06 06/01/2008 02:02:29 [id number] MATTI Chavez, [facility], [address] [place] [address] 07/15/2007 09:34:50 06/01/2008 02:02:29 [id number] MATTI Chavez, [facility], [address] [place] [address] 07/07/2008 10:58:21 07/11/2008 14:44:44 [id number] MATTI Chavez, [facility], [address] [place] [address] 02/01/2009 10:58:26 02/03/2009 10:32:18 [id number] [facility] Radiology , [address] [address] 02/08/2009 10:58:30 02/13/2009 10:22:24 [id number] [facility] - [facility] [address] [place] [address] 02/08/2009 11:01:12 02/08/2009 11:01:34 [id number] [facility] Radiology , [facility] [address] [place] [address] 06/12/2009 10:45:17 06/13/2009 15:13:01 [id number] MATTI Chavez, [facility], [address] [place] [address] 11/13/2010 15:11:39 11/13/2010 16:16:06 [id number] Blaine Malagon MD , [facility], [address] [place] [address] 04/29/2012 12:03:17 04/29/2012 12:25:41 [id number] MATTI Chavez, [facility], [address] [place] [address] 05/21/2012 13:14:53 05/21/2012 14:03:20 [id number] MATTI Chavez, [facility], [address] [place] [address] 09/15/2012 09:48:39 09/15/2012 10:53:12 [id number] MATTI Chavez, [facility], [address] [place] [address] 09/25/2012 09:14:23 09/25/2012 10:07:42 [id number] Judith Padilla NP , [facility], [address] [place] [address] 07/23/2013 14:18:09 07/26/2013 14:06:23 Palpitations 39985311 Anxiety 35799946 [id number] Sea Marie MD , [facility], [address] [place] [address] 11/24/2013 10:54:33 11/24/2013 15:18:18 Adult health examination 381827435 see Risk Assessment and Lifestyle Change Counseling section above Counseling [id number] Perimenopa usal disorder 040951624 [id number] Amador Barroso MD , [facility], [address] [place] [address] 09/05/2014 10:35:58 09/06/2014 09:29:51 Pain of multiple joints 58922510 Patient with diffuse finger joint pain. Also with associated fatigue and some perimenopa usal symptoms. Patient is concerned about Lyme disease. Will check Lyme Ab, CBC, ESR, TSH, BARBARA and RF. Will monitor for any worsening symptoms. Otalgia 69221316 Patient with right-side d ear ache. Recent URI symptoms. Also with right maxillary sinus congestion . Encouraged to use nasal saline irrigation . Has tried decongesta nt without significan t relief. Also recommende d oral antihistam ine. No clinical evidence of otitis media or otitis externa. No pain over the temporal artery area. [id number] Huy Padilla MD , [facility], [address] [place] [address] 03/01/2015 11:51:04 03/09/2015 14:09:44 Urinary tract infectious disease 66797482 N39.0 I'm no sure this is a uti- is on docycyline which would treate e.coli. need to await u/c results. no rx prescribed . I doubt the sx are from the med, but pt stopped med anyway. Increased frequency of urination 587076914 R35.0 [id number] MATTI Chavez , [facility], [address] [place] [address] 03/22/2015 10:51:45 03/22/2015 12:03:25 Adult health examination 528182592 Z00.00 see Risk Assessment and Lifestyle Change Counseling section above Counseling 994140416 Z71 .9 Menopausal syndrome 1237 95467 N95.9 Pain of mu ltiple joints 77740653 M25.50 being tx/[facility] for lyme- neg western blot. [id number] Sea Marie MD , [facility], [address] [place] [address] 06/05/2016 13:26:05 06/05/2016 15:01:59 Adult health examination 991905940 Z00.00 see Risk Assessment and Lifestyle Change Counseling section above Counseling 919218808 Z71 .9 Screening mammography 24 667425 Z12.31 Screening for malignant neoplasm of cervix 605448557 Z12.4 Perimenopa usal disorder 586499896 N95.9 supportive measures reviewed- discussed risk with estrogen/p rogeterone - f/u if any pelvic pain, irregular bleeding or peristant joint pain Active or passive immunization 976972368 Z23 [id number] Sea Marie MD , [facility], [address] [place] [address] 06/11/2017 15:05:25 06/12/2017 07:42:42 Adult health examination 262497429 Z00.00 see Risk Assessment and Lifestyle Change Counseling section above Counseling 189582118 Z71 .9 Mass of buccal mucosa 13 97802771 0166489 K13.79 will f/u with oral surgeon. pt states will schedule, decline referral [id number] Aleida Zelaya MD , [facility], [address] [place] [address] 10/01/2017 10:50:07 10/01/2017 11:50:10 Pharyngitis 465615783 J02.9 URI/viral syndromeen c throat carehydrat ion, restsee pt instr Cough 88724022 R05 tx coughno evidence pna on exam or hx Chest pain 23586361 R07. 9 pt with chest pain that is very rare and not current but described as crushing and radiating to jaw, resolves on own after 15 minutes generallyE CG today in office normalwill get labs and exercise stress test [id number] MATTI Chavez , [facility], [address] [place] [address] 07/15/2018 16:00:31 07/16/2018 08:28:54 Adult health examination 427109370 Z00.00 see Risk Assessment and Lifestyle Change Counseling section above Counseling 224074246 Z71 .9 Depression screening 171 239012 Z13.89 depression screening tool administer ed, entered into emr, scored and discussed, time greater than 7.5 minutes Screening procedure 2012 5006 Z13.9 [id number] Sea Marie MD , [facility], [address] [place] [address] 08/25/2019 10:32:53 08/26/2019 08:40:12 Lesion of skin of breast 8074759978 11760 L98.8 discussed reassuring that it completely resolveds in day- suspect due to skin dryness- plan- use eucerin cream 1-2x/day as barrier on areolas of breast, f/u if not resolving in coming months- sooner any worsening. plan is to do mammogram- this yr when pandemic enables pt to come in- pt agrees with plan [id number] Sea Marie MD , [facility], [address] [place] [address] 12/13/2019 16:14:53 12/24/2019 12:06:39 Insomnia 484888548 G47.00 Gastroesop hageal reflux disease 071882849 K21.9 start famotodine 20 bid, reviewed triggers Chest pain 15188267 R07. 9 with negative stres test, no related to activity suspect due to gerd, keep diary re agg factors and for chest tenderness [id number] Sea Marie MD , [facility], [address] [place] [address] 02/23/2020 08:15:43 02/24/2020 12:38:01 Screening for malignant neoplasm of colon 851624771 Z12.11 Referral for a DIRECT booked colonoscop y. This patient is a healthy ASA Class 1 or 2 patient (only mild systemic disease), or a STABLE, well controlled insulin dependent diabetic. They do not have serious cardiac disease ie HI/angiopl asty within 1 year, symptomati c CHF; renal failure with CKD 4 or 5; take Coumadin, Plavix, Aggrenox, etc. Abdominal bloating 38218 9008 R14.0 hx constipati on- custodial, will increase time in AM for hot drink, add fiber agent hs 1 tbsp, f/u in coming month. pt also due for colonoscop y screening- [facility] Screening for malignant neoplasm of cervix 869558586 Z12.4 will schedule for pap smear in coming months- 2 yr, [facility] y '- pt would like to do [id number] Aleida Zelaya MD , [facility], [address] [place] [address] 03/02/2020 12:28:49 03/03/2020 08:47:37 Screening mammography 12211782 Z12.31 Abdominal pain 79609841 R10.9 3 weeks increasing , associated constipati [...] passing Screening for malignant neoplasm of colon 826245784 Z12.11 Constipation 19778466 K5 9.00 see notes above [id number] Sea Marie MD , [facility], [address] [place] [address] 03/29/2022 15:18:22 03/29/2022 16:10:45 Adult health examination 391978675 Z00.00 see Risk Assessment and Lifestyle Change Counseling section above Counseling 195350157 Z71 .9 including cardiovasc ular risk reduction counseling Depression screening 171 742739 Z13.31 depression screening tool administer ed, entered into emr, scored and discussed, time greater than 7.5 minutes Screening for alcohol abuse 426220783 Z13.39 Fatigue 12359971 R53.83 Screening for malignant neoplasm of colon 416548544 Z12.11 pt declines despite knowing risk of infection and Screening mammography 24 041765 Z12.31 pt declines testing despite knowing risk of infection and [id number] Sea Marie MD , [facility], [address] [place] [address] 06/11/2024 16:08:38 06/14/2024 12:11:09 Adult health examination 763179967 Z00.00 see Risk Assessment and Lifestyle Change Counseling section above Depression screening 171 783546 Z13.31 depression screening tool administer ed Screening for alcohol abuse 462272805 Z13.39 Alcohol use screening tool administer ed Hyperlipidemia 49233607 E78.5 Screening for malignant neoplasm of colon 918898380 Z12.11 pt declines despite knowing risk of infection and Vitamin D deficiency 347 37994 E55.9 Cobalamin deficiency 190 089556 E53.8 low animla products [id number] Sea Marie MD , [facility], [address] [place] [address] 07/16/2024 14:47:05 07/21/2024 15:25:50 Pain in pelvis 89362024 R10.2 [id number] Sea Marie MD , [facility], [address] [place] [address] 10/06/2024 14:08:35 10/12/2024 15:34:02 Epigastric pain [id number] R10.13 Differenti al dx includes hiatal hernia, cholelithi asis, GERD.Will check labs, u/s - Has GI appt November 1Call if sx recur before then [id number] Sea Marie MD , [facility], [address] [place] [address] 10/27/2024 10:45:35 10/28/2024 13:02:57 Gastro-esophageal reflux disease with esophagitis [id number] K21.00 start famotodine 20 bid, trial to decrease tenderness and pt will keep diary to record, tx and how it effects abd symptoms- reviewed triggers for gerd, f/u with GI re abd pain, bloating and gerd- as sched Atypical chest pain [id number] R07.89 with negative stress test, no related [...] ID Puckett Member ID Guarantor Name 09/12/[address] [place] [address] [id number] Lea Marcus [id number] Lea De Santiago Amrit 09/12/2023 1 [facility] Lea Anyi Amrit [id number] Lea Anyi Amrit 10/27/2024 1 [employer] [place] [id number] Lea De Santiago Amrit [id number] Lea De Santiago Amrit 09/30/2005 1 [place] [id number] Sylvester Phipps [id number] Lea A Amrit 05/18/2012 1 [facility] [id number] Sylvester Phipps [id number] Lea Anyi Amrit 09/12/2023 1 [place] [id number] Lea Anyi Amrit [id number] Lea A Amrit 10/09/2001 1 *SELF PAY* Sh dejon De Santiago Amrit 09/12/2023 1 [employer] Lea De Santiago Amrit [id number] Lea De Santiago Amrit 03/05/2016 1 [place] [id number] Sylvester Phipps [id number] Lea Anyi Amrit 09/12/2023 1 [facility] (HMO) [id number] Lea De Santiago Amrit [id number] Lea De Santiago Amrit 09/12/2023 1 [facility] - OPEN ACCESS PLUS [id number] Lea De Santiago Amrit [id number] Lea De Santiago Amrit 09/12/2023 1 [id number] Lea De Santiago Amrit [id number] Lea De Santiago Amrit Notes Date Note [...] Risk Assessment:No evidence of abuse/neglect MATTI Chavez [address] [place] [address], [phone], [facility] 04/02/2022 22:26:11 06/11/2024 text/html Physical Exam/FemaleReported bypatient.PHAPatient [...] and drinks alcohol only occasionally. MATTI Chavez [address] [place], [address], [facility] 06/13/2024 14:52:44 07/16/2024 text/html Pt presents for [...] or stool cards done previously. MATTI Chavez [address] [place] [address], [place], [phone], [facility] 07/19/2024 14:15:23 10/06/2024 text/html pt seen in the E R in [place] on 10/03/24 - c/o chest painpt questions [...] now gonehas GI appt November 09 - [facility] Sunshine Millan NP [address] [place], [address], [facility] 10/08/2024 13:05:46 10/27/2024 text/html Pt presents for [...] states tender over epigastric MATTI Chavez [address] [place], [address], [facility] 10/27/2024 20:20:32 OBGyn Episode No OBEpisode recorded.
== END 2024-11-09 13:22 | disposition home or self-care (01) ==
LOC: HO.HGI 12:18
PROVIDERS: PCP Physician Assistant; Visit Provider Nurse Practitioner Family
DX: R19.5 Other fecal abnormalities (principal); K82.4 Cholesterolosis of gallbladder; R07.9 Chest pain, unspecified
CPT/HCPCS: 99204

== ENCOUNTER 2024-11-24 08:17 | Outpatient (AMB) | payer OTHER, SELFPAY ==
--- OUTSIDE RECORDS SUMMARY | 2024-11-24 08:21 | XMS_ITS | Data Portability ---
Author Organization [facility], [facility] Address [address] [place] [address] Care Team Providers Care Sales Recruitment Specialist Name Role Phone SEA MARIE Primary Care Provider GOMEZ MARIE Primary Care Provider [phone] ARTURO SÁNCHEZ OTHER [facility] Internal Medici ne SUNIL DE [...] of immunizations. - Encouraged healthy lifestyle choices. CYCLE CONSULTANT - perforning pap- f/u /CYCLE CONSULTANT recommendation Follow-up Discussed follow-up plans for lab work and next physical exam. - Schedule fasting lab tests at [facility], including vitamin D and B vitamins. [...] was notified that the provider location is [facility] Patient location: home During the visit the patient s medical history and medical record were reviewed. The patient was notified to call our office for worsening or urgent symptoms. [email or web address] Not available 10/27/2024 10:48:04 Plan of Treatment Reminders Order Date Submit Date Provider Last Modified By Organization Details Last Modified Time Details Appointments None recorded. Lab lipase, serum or plasma 2024 025 [facility] (Er), [address] [place] [address], [address], 16:00:46 amylase + lipase, serum 2024 025 [facility] ([facility]), [address] [place] [address], [address], 12:58:34 hepatic function panel, serum 2024 025 [facility] ([facility]), [address] [place] [address], [address], 5 10:30:33 urinalysis , dipstick [address] [facility], [address] [place], [address], 16:35:20 CBC 2024 025 [facility] ([facility]), [address] [place] [address], [address], 16:03:54 CMP, serum or plasma 2024 025 [facility] ([facility]), [address] [place] [address], [address], 14:25:03 fecal occult blood, immunoassa y, stool 2024 025 [facility], [address] [place] [address], [address], 10:44:39 vitamin D, 25-hydroxy , total, serum 2024 025 [facility] ([facility]), [address] [place] [address], [address], 12:40:46 lipid panel, serum 2024 025 [facility] ([facility]), [address] [place] [address], [address], 14:25:04 BMP, serum or plasma 2024 025 [facility] ([facility]), [address] [place] [address], [address], 12:40:46 TSH, serum or plasma 2024 025 [facility] ([facility]), [address] [place] [address], [address], 14:25:04 vitamin B12, serum 2024 025 [facility] ([facility]), [address] [place] [address], [address], 12:40:46 Referral None recorded. Procedures None recorded. Surgeries None recorded. Imaging exercise stress test - 5'5 , 132lbs, no pacer, no medication s to hold 54yo atypical chest pain lasting 36 hrs., eval in ER recommnedi ng stress test [address] Central Scheduling, [address] [place] [address], [address], 14:50:15 US, abdomen, complete - episodic RUQ and epigastric pain - eval for liver or gall bladder issues 2024 025 [facility] ([facility]), [address] [place] [address], [address], 08:28:24 US, pelvis, complete - 53 yo with 1 month hx of pelvic pain, exam- no masses, FH ovarian cancer 2024 025 [facility] Central Scheduling, [address] [place] [address], [address], 5 08:59:24 US, transvagin al - worsening pelvic pressure with vaginal blaoting, exam- [address] Central Scheduling, [address] [place] [address], [address], 5 14:27:03 Medication Orders famotidine 20 mg tablet 2024 025 [id number], [address] [place], [address], 11:34:08 Patient TargetsNo targets recorded. Patient Instructions Encounter Date Encounter Id Patient Instructions Last Modified By Organization Details Last Modified Time 03/29/2022 [id number] well visit, wome n 50 to 65: [...] UA glu UA NEGATI VE Not Available [address], [address], 07/16/2024 15:51:06 07/17/19 25 07/16/2024 POC UA clarity UA CLEAR Not Available [address], [address], 07/16/2024 15:51:06 07/17/19 25 07/16/2024 POC UA uro UA 0.2000 Not Available [address], [address], 07/16/2024 15:51:06 07/17/19 25 07/16/2024 POC UA ket UA NEGATI VE Not Available [address], [address], 07/16/2024 15:51:06 07/17/19 25 07/16/2024 POC UA pro UA NEGATI VE Not Available [address], [address], 07/16/2024 15:51:06 07/17/19 25 07/16/2024 POC UA nit UA NEGATI VE Not Available [address], [address], 07/16/2024 15:51:06 07/17/19 25 07/16/2024 POC UA destiny UA NEGATI VE Not Available [facility] [address] [place] [address], [address], 07/16/2024 15:51:06 07/17/19 25 07/16/2024 POC UA pH UA 6.0000 Not Available [facility] [address] [place] [address], [address], 07/16/2024 15:51:06 07/17/19 25 07/16/2024 POC UA SG UA 1.0150 Not Available [facility] [address] [place] [address], [address], 07/16/2024 15:51:06 07/17/19 25 07/16/2024 POC UA color UA YELLOW Not Available [facility] [address] [place] [address], [address], 07/16/2024 15:51:06 07/17/19 25 07/16/2024 POC UA blo UA NEGATI VE Not Available [facility] [address] [place] [address], [address], 07/16/2024 15:51:06 07/17/19 25 07/16/2024 POC UA kinsey UA NEGATI VE Not Available [facility] [address] [place] [address], [address], 07/16/2024 15:51:06 07/19/19 25 07/20/2024 IMMUN OCHEM ICAL FECAL OCCUL T BLOOD ifobt NEGATI VE negati ve Not Available [address], [address], 07/20/2024 10:44:39 08/04/19 25 08/02/2024 US, pelandrea s, compl ete No observ ation record ed. [facility] [address] [place] [address], [address], 08/06/2024 15:45:39 11/04/19 25 11/03/2024 US, abdom en No observ ation record ed. [facility] [address] [place], [address], 11/15/2024 10:04:23 11/04/19 25 11/03/2024 US, abdom en, compl ete No observ ation record ed. [facility] [address] [place], [address], 11/15/2024 10:04:24 Result Notes None recorded. Problems Name Problem SNOMED Code Status Onset Date Resolution Date Notes Provider Name and Address Organization Details Recorded Time Perimenopa usal disorder 836126398 Active MATTI Chavez [address] [place] [address], [address] , [facility] 4 11:42:04 Nausea 976896835 Completed 200603/31/2013 Not Available [facility] 3 02:03:39 Nausea and vomiting 06732070 Completed 200603/31/2013 Not Available [facility] 3 02:03:05 Right lower quadrant pain 942290391 Completed 200303/31/2013 Not Available [facility] 3 02:03:25 Acute cystitis 27053451 Completed 200003/31/2013 Not Available [facility] 3 02:02:31 Lymphadeno ayan 99794231 Completed 200003/31/2013 Not Available [facility] 3 02:03:13 Anxiety state 240437370 Active Not Available [facility] 3 03:06:43 Dizziness 705775040 Completed 200203/31/2013 Not Available [facility] 3 02:02:07 Breast lump 30935629 Active 2007 Not Available [facility] 3 03:06:43 Common cold 19992305 Completed 200003/31/2013 Not Available [facility] 3 02:00:24 Hemorrhage of rectum and anus 090493149 Completed 03/31/2013 Not Available [facility] 3 02:03:16 Abdominal pain 82175999 Completed 200303/31/2013 Not Available [facility] 3 02:01:19 Irregular periods 34108410 Completed 200003/31/2013 Not Available [facility] 3 02:02:18 On examinatio n - a rash Completed 200603/31/2013 Not Available [facility] 3 02:00:45 Female genital organ symptoms 038479392 Completed 200303/31/2013 Not Available [facility] 3 02:03:07 Menopausal symptom 15658944 Completed 03/31/2013 Not Available [facility] 3 02:01:28 Acne 21122989 Active 2003 Not Available [facility] 3 03:06:43 Amenorrhea 94138329 Active Not Available [facility] 3 03:06:43 Cyst of ovary 94958217 Active Not Available [facility] 3 03:06:43 Malaise and fatigue 662692542 Completed 200003/31/2013 Not Available [facility] 3 02:00:14 Vaginitis and vulvovagin itis Completed 200603/31/2013 Not Available [facility] 3 02:01:47 Problem Notes None recorded. Procedures Surgical History Date Name Laterality Status Provider Name and Address Organization Details Recorded Time 0 prevention-card iovascular risk reduction counseling cancelled Genna Correa MA [facility] 11/18/2019 15:22:02 0 prevention-jules al alcohol misuse screening cancelled Genna Correa MA [facility] 11/18/2019 15:22:02 8 POC Strep Testing completed RONNA Cabrera [facility] 10/01/2017 11:06:46 Imaging Results None recorded. Procedure Notes None recorded. Medical Equipment None Reported. Allergies Allergen ID Allergen Name Allergen Category Reaction Reaction Severity Criticality Documentation Date Start Date Code Code System Note Provider Name and Address Organization Details Recorded Time 3901 morphine medicatio n hives Not available Not available 07/07/2008 7052 RxNorm Not Available [facility] 1 06:05:20 Medications Name Sig Start [...] completed Not Available Not Available Not Available simethico ne 125 mg capsule 4 times daily PRN 2024 active per GI note 11/09/24 Not Available Not Available Not Available acetamino [...] in Arterial blood by Pulse oximetry Systolic And Diastolic Provider Name and Address Organization Details Last Updated DateTime 5 166.37 cm 22.5 kg/m2 36582.1 5 g 67 /min 99 % 99 % 124/56 mm[Hg] Marifer Welch [facility] 5 16:18:41 Date Recorded Body height Body mass index (BMI) Body weight Oxygen saturation Oxygen saturation in Arterial blood by Pulse oximetry Heart rate Body temperature Systolic And Diastolic Provider Name and Address Organization Details Last Updated DateTime 5 166.37 cm 22.3 kg/m2 30624.5 6 g 99 % 99 % 61 /min 97.7 [degF] 112/72 mm[Hg] Marifer Welch [facility] 5 14:57:32 Date Recorded Body height Heart rate Oxygen saturation Oxygen saturation in Arterial blood by Pulse oximetry Body mass index (BMI) Body weight Systolic And Diastolic Provider Name and Address Organization Details Last Updated DateTime 5 166.37 cm 73 /min 99 % 99 % 21.7 kg/m2 98741.5 9 g 90/58 mm[Hg] Andrea Lemons [facility] 5 14:42:15 Date Recorded Body height Provider Name an d Address Organization Details Last Updated DateTime 10/27/2024 166.37 cm Marifer Welch [facility] 10/27/2024 10:49:35 Date Recorded Heart rate Body weight Body mass index (BMI) Body height Systolic And Diastolic Provider Name and Address Organization Details Last Updated DateTime 03/29/2022 78 /min 73435.37 g 21.8 kg/m2 167.64 cm 112/62 mm[Hg] Betsy Prado [facility] 03/29/2022 15:41:30 Social History Question Answer Notes LastModified by Organizat ion Details LastModified Time Tobacco Smoking Status Never Smoker Not Available [facility] 03/28/2011 04:53:49 Do You Have An Advance [...] available 07/07/2008 What Is Your Relationship Status? [email or web address] Information not available 03/29/2022 Seat Belts Used Routinely Yes Information not available 03/29/2022 Are You Sexually Active? No [email or web address] Information not available 03/29/2022 Smoke Alarm In [...] use any illicit or recreational drugs? No [email or web address] Information not available 03/29/2022 Do you or have you ever used any other forms of tobacco or nicotine? No [email or web address] Information not available 03/29/2022 Do you or [...] Td(adult) unspecified formulation 5 completed Not Available [facility] 03/27/2011 05:21:29 influenza, unspecified formulation 2 completed Odalis Weston MA [facility], [facility] 04/29/2012 12:11:23 Tdap 7 completed Not Available [facility] 05/29/2019 02:29:58 Past Encounters Encounter ID Performer Location Encounter Start Date Encounter Closed Date Diagnosis/Indication Diagnosis SNOMED-CT Code Diagnosis ICD10 Code Diagnosis Note [id number] Odalis Webb M.D . , [facility], [address] [place] [address] 10/16/2000 16:30:00 06/01/2008 02:02:29 [id number] MATTI Chavez, [facility], [address] [place] [address] 02/11/2001 09:45:00 06/01/2008 02:02:29 [id number] Dora Chun NP FP, [facility], [address] [place] [address] 03/09/2001 13:30:00 06/01/2008 02:02:29 [id number] Dora Chun NP FP, [facility], [address] [place] [address] 04/17/2001 13:30:00 06/01/2008 02:02:29 [id number] Dora Chun NP FP, [facility], [address] [place] [address] 05/06/2001 13:00:00 06/01/2008 02:02:29 [id number] MD SABINO Bradley, [facility], [address] [place] [address] 08/11/2001 17:00:00 06/01/2008 02:02:29 [id number] MATTI Chavez, [facility], [address] [place] [address] 10/25/2002 11:31:01 06/01/2008 02:02:29 [id number] [facility] - [address] [address] 10/25/2002 12:43:07 06/01/2008 02:02:29 [id number] MATTI Chavez, [facility], [address] [place] [address] 09/30/2003 12:19:10 09/30/2003 15:34:19 [id number] MATTI Chavez, [facility], [address] [place] [address] 12/02/2003 14:07:01 12/03/2003 11:03:47 [id number] [facility] - [facility] [address] [place] [address] 12/02/2003 16:38:03 12/02/2003 16:38:14 [id number] [facility] [employer] Radiology , [facility] [address] [place] [address] 12/05/2003 12:49:12 12/06/2003 09:03:29 [id number] [facility] [employer] Radiology , [facility] [address] [place] [address] 12/05/2003 00:00:00 06/01/2008 02:02:29 [id number] MATTI Chavez, [facility], [address] [place] [address] 02/13/2004 13:02:11 02/14/2004 10:00:21 [id number] Judith Harman MD , [facility], [address] [place] [address] 12/04/2004 16:15:51 06/01/2008 02:02:29 [id number] MATTI Chavez, [facility], [address] [place] [address] 01/18/2005 14:06:53 01/19/2005 10:49:37 [id number] Judith Harman MD , [facility], [address] [place] [address] 03/06/2005 14:20:43 06/01/2008 02:02:29 [id number] MATTI Chavez, [facility], [address] [place] [address] 11/01/2005 11:21:36 06/01/2008 02:02:29 [id number] MATTI Hawkins, [facility], [address] [place] [address] 12/17/2006 13:24:05 12/17/2006 16:27:46 [id number] MD SABINO Biggs, [facility], [address] [place] [address] 02/16/2007 09:37:39 02/18/2007 11:32:05 [id number] [facility] - [address] [address] 02/16/2007 10:15:30 02/16/2007 10:15:38 [id number] [facility] - [facility] [address] [place] [address] 04/24/2007 11:31:52 04/24/2007 11:31:59 [id number] MATTI Chavez, [facility], [address] [place] [address] 04/24/2007 09:58:06 06/01/2008 02:02:29 [id number] MATTI Chavez, [facility], [address] [place] [address] 07/15/2007 09:34:50 06/01/2008 02:02:29 [id number] MATTI Chavez, [facility], [address] [place] [address] 07/07/2008 10:58:21 07/11/2008 14:44:44 [id number] MATTI Chavez, [facility], [address] [place] [address] 02/01/2009 10:58:26 02/03/2009 10:32:18 [id number] [facility] [employer] Radiology , [address] [address] 02/08/2009 10:58:30 02/13/2009 10:22:24 [id number] [facility] - [facility] [address] [place] [address] 02/08/2009 11:01:12 02/08/2009 11:01:34 [id number] [facility] [employer] Radiology , [facility] [address] [place] [address] 06/12/2009 10:45:17 06/13/2009 15:13:01 [id number] MATTI Chavez, [facility], [address] [place] [address] 11/13/2010 15:11:39 11/13/2010 16:16:06 [id number] MD SABINO Bradley, [facility], [address] [place] [address] 04/29/2012 12:03:17 04/29/2012 12:25:41 [id number] MATTI Chavez, [facility], [address] [place] [address] 05/21/2012 13:14:53 05/21/2012 14:03:20 [id number] MATTI Chavez, [facility], [address] [place] [address] 09/15/2012 09:48:39 09/15/2012 10:53:12 [id number] MATTI Chavez, [facility], [address] [place] [address] 09/25/2012 09:14:23 09/25/2012 10:07:42 [id number] Judith Padilla NP , [facility], [address] [place] [address] 07/23/2013 14:18:09 07/26/2013 14:06:23 Palpitations 48924739 Anxiety 33837940 [id number] Sea Marie MD , [facility], [address] [place] [address] 11/24/2013 10:54:33 11/24/2013 15:18:18 Adult health examination 504770717 see Risk Assessment and Lifestyle Change Counseling section above Counseling [id number] Perimenopa usal disorder 336894604 [id number] Amador Barroso MD , [facility], [address] [place] [address] 09/05/2014 10:35:58 09/06/2014 09:29:51 Pain of multiple joints 19784123 Patient with diffuse finger joint pain. Also with associated fatigue and some perimenopa usal symptoms. Patient is concerned about Lyme disease. Will check Lyme Ab, CBC, ESR, TSH, BARBARA and RF. Will monitor for any worsening symptoms. Otalgia 16132494 Patient with right-side d ear ache. Recent URI symptoms. Also with right maxillary sinus congestion . Encouraged to use nasal saline irrigation . Has tried decongesta nt without significan t relief. Also recommende d oral antihistam ine. No clinical evidence of otitis media or otitis externa. No pain over the temporal artery area. [id number] Huy Padilla MD , [facility], [address] [place] [address] 03/01/2015 11:51:04 03/09/2015 14:09:44 Urinary tract infectious disease 03188394 N39.0 I'm no sure this is a uti- is on docycyline which would treate e.coli. need to await u/c results. no rx prescribed . I doubt the sx are from the med, but pt stopped med anyway. Increased frequency of urination 477953638 R35.0 [id number] MATTI Chavez , [facility], [address] [place] [address] 03/22/2015 10:51:45 03/22/2015 12:03:25 Adult health examination 413130085 Z00.00 see Risk Assessment and Lifestyle Change Counseling section above Counseling 104170752 Z71 .9 Menopausal syndrome 1237 77105 N95.9 Pain of mu ltiple joints 49779211 M25.50 being tx/[facility] for lyme- neg western blot. [id number] Sea Marie MD , [facility], [address] [place] [address] 06/05/2016 13:26:05 06/05/2016 15:01:59 Adult health examination 633721890 Z00.00 see Risk Assessment and Lifestyle Change Counseling section above Counseling 099338649 Z71 .9 Screening mammography 24 991756 Z12.31 Screening for malignant neoplasm of cervix 940182130 Z12.4 Perimenopa usal disorder 901126615 N95.9 supportive measures reviewed- discussed risk with estrogen/p rogeterone - f/u if any pelvic pain, irregular bleeding or peristant joint pain Active or passive immunization 582123490 Z23 [id number] Sea Marie MD , [facility], [address] [place] [address] 06/11/2017 15:05:25 06/12/2017 07:42:42 Adult health examination 131810046 Z00.00 see Risk Assessment and Lifestyle Change Counseling section above Counseling 551713634 Z71 .9 Mass of buccal mucosa 13 34643254 6879345 K13.79 will f/u with oral surgeon. pt states will schedule, decline referral [id number] Aleida Zelaya MD , [facility], [address] [place] [address] 10/01/2017 10:50:07 10/01/2017 11:50:10 Pharyngitis 527995191 J02.9 URI/viral syndromeen c throat carehydrat ion, restsee pt instr Cough 71800593 R05 tx coughno evidence pna on exam or hx Chest pain 98085448 R07. 9 pt with chest pain that is very rare and not current but described as crushing and radiating to jaw, resolves on own after 15 minutes generallyE CG today in office normalwill get labs and exercise stress test [id number] MATTI Chavez , [facility], [address] [place] [address] 07/15/2018 16:00:31 07/16/2018 08:28:54 Adult health examination 235348699 Z00.00 see Risk Assessment and Lifestyle Change Counseling section above Counseling 277672404 Z71 .9 Depression screening 171 750551 Z13.89 depression screening tool administer ed, entered into emr, scored and discussed, time greater than 7.5 minutes Screening procedure 2012 5006 Z13.9 [id number] Sea Marie MD , [facility], [address] [place] [address] 08/25/2019 10:32:53 08/26/2019 08:40:12 Lesion of skin of breast 9139793485 37817 L98.8 discussed reassuring that it completely resolveds in day- suspect due to skin dryness- plan- use eucerin cream 1-2x/day as barrier on areolas of breast, f/u if not resolving in coming months- sooner any worsening. plan is to do mammogram- this yr when pandemic enables pt to come in- pt agrees with plan [id number] Sea Marie MD , [facility], [address] [place] [address] 12/13/2019 16:14:53 12/24/2019 12:06:39 Insomnia 897061313 G47.00 Gastroesop hageal reflux disease 203327876 K21.9 start famotodine 20 bid, reviewed triggers Chest pain 97874261 R07. 9 with negative stres test, no related to activity suspect due to gerd, keep diary re agg factors and for chest tenderness [id number] Sea Marie MD , [facility], [address] [place] [address] 02/23/2020 08:15:43 02/24/2020 12:38:01 Screening for malignant neoplasm of colon 427938231 Z12.11 Referral for a DIRECT booked colonoscop y. This patient is a healthy ASA Class 1 or 2 patient (only mild systemic disease), or a STABLE, well controlled insulin dependent diabetic. They do not have serious cardiac disease ie [place]/angiopl asty within 1 year, symptomati c CHF; renal failure with CKD 4 or 5; take Coumadin, Plavix, Aggrenox, etc. 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 pt also due for colonoscop y screening- [facility] Screening for malignant neoplasm of cervix 639938492 Z12.4 will schedule for pap smear in coming months- 2 yr, [facility]osurger y '93- pt would like to do [id number] Aleida Zelaya MD , [facility], [address] [place] [address] 03/02/2020 12:28:49 03/03/2020 08:47:37 Screening mammography 09501318 Z12.31 Abdominal pain 21618010 R10.9 3 weeks increasing , associated constipati [...] passing Screening for malignant neoplasm of colon 920892730 Z12.11 Constipation 97300712 K5 9.00 see notes above [id number] Sea Marie MD , [facility], [address] [place] [address] 03/29/2022 15:18:22 03/29/2022 16:10:45 Adult health examination 398593736 Z00.00 see Risk Assessment and Lifestyle Change Counseling section above Counseling 421675165 Z71 .9 including cardiovasc ular risk reduction counseling Depression screening 171 541489 Z13.31 depression screening tool administer ed, entered into emr, scored and discussed, time greater than 7.5 minutes Screening for alcohol abuse 480126134 Z13.39 Fatigue 33264335 R53.83 Screening for malignant neoplasm of colon 150109277 Z12.11 pt declines despite knowing risk of infection and Screening mammography 24 429939 Z12.31 pt declines testing despite knowing risk of infection and [id number] Sea Marie MD , [facility], [address] [place] [address] 06/11/2024 16:08:38 06/14/2024 12:11:09 Adult health examination 433160231 Z00.00 see Risk Assessment and Lifestyle Change Counseling section above Depression screening 171 486067 Z13.31 depression screening tool administer ed Screening for alcohol abuse 586281072 Z13.39 Alcohol use screening tool administer ed Hyperlipidemia 27589833 E78.5 Screening for malignant neoplasm of colon 100859681 Z12.11 pt declines despite knowing risk of infection and Vitamin D deficiency 347 20376 E55.9 Cobalamin deficiency 190 081134 E53.8 low animla products [id number] Sea Marie MD , [facility] [facility], OFFICE [address] [place] [address] 07/16/2024 14:47:05 07/21/2024 15:25:50 Pain in pelvis [id number] R10.2 [id number] Sea Marie MD , [facility], OFFICE [address] [place] [address] 10/06/2024 14:08:35 10/12/2024 15:34:02 Epigastric pain [id number] R10.13 Differenti al dx includes hiatal hernia, cholelithi asis, GERD.Will check labs, u/s - Has GI appt November 1Call if sx recur before then [id number] Sea Marie MD , [facility], OFFICE [address] [place] [address] 10/27/2024 10:45:35 10/28/2024 13:02:57 Gastro-esophageal reflux disease with esophagitis [id number] K21.00 start famotodine 20 bid, trial to decrease tenderness and pt will keep diary to record, tx and how it effects abd symptoms- reviewed triggers for gerd, f/u with GI re abd pain, bloating and gerd- as sched Atypical chest pain 1025 [id number] R07.89 with negative stress test, no related [...] Puckett Member ID Guarantor Name 09/12/2023 1 [facility] [id number] Lea De Santiago Amrit [id number] Lea De Santiago Amrit 09/12/2023 1 [facility] Lea Anyi Amrit [id number] Lea Anyi Amrit 10/27/2024 1 [employer] [place] [id number] Lea De Santiago Amrit [id number] Lea De Santiago Amrit 09/30/2005 1 [place]: [place] [id number] Sylvester Phipps [id number] Lea A Amrit 05/18/2012 1 [facility] [id number] Sylvester Phipps [id number] Lea Anyi Amrit 09/12/2023 1 [place] [id number] Lea Anyi Amrit [id number] Lea A Amrit 10/09/2001 1 *SELF PAY* Sh dejon De Santiago Amrit 09/12/2023 1 [employer] Lea De Santiago Amrit [id number] Lea Anyi Amrit 03/05/2016 1 [place] [id number] Sylvester Phipps [id number] Lea Anyi Amrit 09/12/2023 1 [facility] HEALTH PLAN (HMO) [id number] Lea De Santiago Amrit [id number] Lea De Santiago Amrit 09/12/2023 1 [facility] OPEN ACCESS PLUS [id number] Lea De Santiago Amrit [id number] Lea De Santiago Amrit 09/12/2023 1 R [id number] Lea De Santiago Amrit [id number] Lea Anyi Amrit Notes Date Note Type Note Provider [...] Assessment:No evidence of abuse/neglect MATTI Chavez [address] [place], [address], [facility] 04/02/2022 22:26:11 06/11/2024 text/html Physical Exam/FemaleReported bypatient.PHAPatient [...] drinks alcohol only occasionally. MATTI Chavez [address] [place], [address], [facility] 06/13/2024 14:52:44 07/16/2024 text/html Pt presents for [...] or stool cards done previously. MATTI Chavez [address] [place] [address], [place], [address], [facility] 07/19/2024 14:15:23 10/06/2024 text/html pt seen in the E R in [place] on 10/03/24 - c/o chest painpt questions [...] now gonehas GI appt November 09 - [facility] Sunshine Millan NP [address] [place], [address], [facility] 10/08/2024 13:05:46 10/27/2024 text/html Pt presents for [...] states tender over epigastric MATTI Chavez [address] [place], [address], [facility] 10/27/2024 20:20:32 OBGyn Episode No OBEpisode recorded.
--- NOTE | 2024-11-24 08:33 | AM.OFFVISNUR ---
Intake Visit Reasons: h pylori Allergies morphine Allergy (Intermediate, Verified 11/09/24 12:25) [facility] Nursing Note Patient presents for collection of H Pylori breath test. Patient has been fasting for 1 hour (nothing to eat, drink, no chewing gum or smoking) has not taken any antacid medication for at least 2 weeks and has no allergies to artificial sweeteners.?? Assessment & Plan Assessment & Plan (1) Chest pain: Code(s): R07.9 - Chest pain, unspecified Category: Medical Qualifiers: Chest pain type: unspecified Qualified Code(s): R07.9 - Chest pain, unspecified Plan Patient presents for collection of H Pylori breath test. Patient has been fasting for 1 hour (nothing to eat, drink, no chewing gum or smoking) has not taken any antacid medication for at least 2 weeks and has no allergies to artificial sweeteners.???This test checks for an overgrowth of bacteria in your stomach. We all have bacteria but some may have more than others. It is treatable. if the test comes back negative there is nothing else to do. If the test result is positive we will treat you with 2 antibiotics and a medication to decrease the acid in your stomach (PPI) for 2 weeks. Two weeks after you have completed the treatment we will retest you to make sure the overgrowth has resolved. Patient Instructions: Process for specimen collection and reason for testing was explained to the patient. Specimen collection. Patient instructed to take a deep breath and then exhale into the blue bag, filling it up as much as possible. Patient instructed to drink a mixture of water and the artificial sweetener with a straw. A 15 minute wait period was observed. Patient instructed to take a deep breath and then exhale into the pink bag, filling it up as much as possible.?? Coding Level of Care Code Established Pt Est Pt Level 1 (04541) Patient Type Established Medical Decision Making Straight Forward Diagnoses Chest pain, unspecified type R07.9 Chest pain type: unspecified
== END 2024-11-24 08:39 | disposition home or self-care (01) ==
LOC: HO.HGI 08:18
PROVIDERS: PCP Physician Assistant; Visit Provider Nurse Practitioner Family
DX: R07.9 Chest pain, unspecified (principal)
CPT/HCPCS: 99211

== ENCOUNTER 2024-11-24 08:17 | Outpatient (REF) | payer OTHER, SELFPAY ==
--- OUTSIDE RECORDS SUMMARY | 2024-11-24 17:09 | XMS_ITS | Clinical Summary ---
Author Organization [address] Address [address] [place] [address] Care Team Providers Care Supervisor [employer] Name Role Phone Irish Marie Primary Care Provider [phone] Allergies Active Allergy Reactions Criticality Noted Date Comments Morphine Hives High 08/24/2020 Medications No known medications Active Problems No known active problems Encounters Date Type Department Care Team Description 10/04/2024 11:19 AM EDT - 10/04/2024 12:45 PM EDT Emergency [facility] [address] [place] [id number] Marco Antonio Miranda MD Chest pain, unspecified type (Primary Dx) Discharge Disposition: Home or Self Care 10/04/2024 10:30 AM EDT Office Visit [facility] [address] [address] Monica Horton APRN Chest pain, unspecified type [...] Damian Bill MD Marco Antonio Miranda MD [facility] ORDERAB LES Final Result * (ABNORMAL) Comprehensive metabolic panel (10/04/2024 11:39 AM EDT) Sodium 138 136 - 145 mmol/L 10/04/2024 12:18 PM EDT L + [facility] Potassium 4.1 3.5 - 5.1 mmol/L 10/04/2024 12:18 PM [facility] Chloride 107 98 - 107 mmol/L 10/04/2024 12:18 PM [facility] CO2 25 21 - 32 mmol/L 10/04/2024 12:18 PM [facility] Anion Gap 6 5 - 15 mmol/L 10/04/2024 12:18 PM [facility] Glucose 113(H) 65 - 110 mg/dL 10/04/2024 12:18 PM [facility] Comment: Non-fastin-110 mg/dL Fasting (minimum 6 hrs): 65-99 mg/dL BUN 16 7 - 18 mg/dL 10/04/2024 12:18 PM [facility] Creatinine 1.01 0.55 - 1.02 mg/dL 10/04/2024 12:18 PM [facility] Calcium 9.4 8.5 - 10.1 mg/dL 10/04/2024 12:18 PM [facility] Total Protein 6.9 6.4 - 8.2 g/dL 10/04/2024 12:18 PM [facility] Albumin 3.4 3.4 - 5.0 g/dL 10/04/2024 12:18 PM [facility] Globulin 3.5 2.5 - 5.0 g/dL 10/04/2024 12:18 PM [facility] Total Bilirubin 0.6 <1.0 mg/dL 10/04/2024 12:18 PM [facility] Comment:Use of this assay is not recommended for patients undergoing treatment with Eltrombopag due to the potential for falsely elevated results. Alkaline Phosphatase 56 45 - 117 U/L 10/04/2024 12:18 PM [facility] Alanine Aminotransferase (ALT) 25 13 - 56 U/L 10/04/2024 12:18 PM [facility] Aspartate Aminotransferase (AST) 18 15 - 37 U/L 10/04/2024 12:18 PM [facility] eGFR (Creatinine) >60 >=60 mL/min/1. 73m2 10/04/2024 12:18 PM [facility] Comment: [facility] utilizes CKD-EPI Creatinine 2020 to report eGFR. Values < 60 mL/min/1.73 m2 may indicate CKD if present for more than three months AND creatinine is at steady state. The eGFR provides a rough estimate of kidney function. For further guidance, please refer to the CKD: Adult City Recorder Signature pathway. Creatinine Delta 10/05/19 12:18 PM EDT [facility] Comment:No previous creatini ne <5.00 mg/dL is available within the previous 12 months to calculate a delta creatinine. Blood Venipuncture / Unknown 10/04/2024 11:39 AM EDT 10/04/2024 11:43 AM EDT Marco Antonio Miranda MD LAB BLOOD ORDERABLES Final Res ult Performing Organization Address [facility] Co de Phone Number [facility] [address] [place] [address] * Troponin T High Sensitivity, Emergency; 0 hour baseline AND 1 hour with reflex (3 hour) (1:39 AM EDT) [facility] High Sensitivity Troponin T <6 See Comment ng/L 10/04/2024 12:16 PM EDT [facility] Comment:High Sensitivity Tro ponin T levels should be interpreted in the context of the [facility] Care Signature pathway. Blood Venipuncture / Unknown 10/04/2024 11:39 AM EDT 10/04/2024 11:43 AM EDT Marco Antonio Miranda MD LAB BLOOD ORDERABLES Final Res ult Performing Organization Address [facility] Co de Phone Number [facility] [address] [place] [address] * (ABNORMAL) CBC auto differential (10/04/2024 11:39 AM EDT) [facility] WBC 4.9 4.0 - 11.0 x1000/ L 10/04/2024 11:50 AM EDT [facility] RBC 4.09 4.00 - 6.00 M/ L 10/04/2024 11:50 AM EDT [facility] Hemoglobin 12.8 11.7 - 15.5 g/dL 10/04/2024 11:50 AM EDT [facility] Hematocrit 35.70 35.00 - 45.00 % 10/04/2024 11:50 AM EDT [facility] MCV 87.3 80.0 - 100.0 fL 10/04/2024 11:50 AM EDT [facility] MCH 31.3 27.0 - 33.0 pg 10/04/2024 11:50 AM EDT [facility] MCHC 35.9 31.0 - 36.0 g/dL 10/04[facility]2024 [facility] RDW-CV 13.2 11.0 - 15.0 % 10/04/2024 11:50 AM EDT [facility] Platelets 192 150 - 420 x1000/ L 10/04/2024 11:50 AM EDT [facility] MPV 9.6 8.0 - 12.0 fL 10/04/2024 11:[facility] Neutrophils 83.1(H) 39.0 - 72.0 % 10/04/2024 11:50 AM EDT [facility] Lymphocytes 8.8(L) 17.0 - 50.0 % 10/04/2024 11:50 AM EDT [facility] Monocytes 7.1 4.0 - 12.0 % 10/04/2024 11:50 AM EDT [facility] Eosinophils 0.2 0.0 - 5.0 % 10/04/2024 11:50 AM EDT [facility] Basophil 0.2 0.0 - 1.4 % 10/04/2024 11:50 AM EDT [facility] Immature Granulocytes 0.6 0.0 - 1.0 % 10/04/2024 11:50 AM EDT [facility] nRBC 0.0 0.0 - 1.0 % 10/04/2024 11:50 AM EDT [facility] Absolute Lymphocyte Count 0.43(L) 0.60 - 3.70 x 1000/ L 10/04/2024 11:50 AM EDT [facility] Monocyte Absolute Count 0.35 0.00 - 1.00 x 1000/ L 10/04/2024 11:50 AM EDT [facility] Eosinophil Absolute Count 0.01 0.00 - 1.00 x 1000/ L 10/04/2024 11:50 AM EDT [facility] Basophil Absolute Count 0.01 0.00 - 1.00 x 1000/ L 10/04/2024 11:50 AM EDT [facility] Absolute Immature Granulocyte Count 0.03 0.00 - 0.30 x 1000/ L 10/04/2024 11:50 AM EDT [facility] Absolute nRBC 0.00 0.00 - 1.00 x 1000/ L 10/04/2024 11:50 AM T [facility] ANC (Abs Neutrophil Count) 4.07 2.00 - 7.60 x 1000/ L 10/04/2024 11:50 AM EDT [facility] Blood Venipuncture / Unknown 10/04/2024 11:39 AM EDT 10/04/2024 11:45 AM EDT us Marco Antonio Miranda MD LAB BLOOD ORDERABLES Final Res ult [facility] [address] [place] [address] * (ABNORMAL) D-dimer, quantitative (10/04/2024 11:39 AM EDT) D-Dimer 0.74(H) <0.50 mg/L FEU 10/04/2024 11:58 AM EDT [facility] Comment: CLINICAL CUT OFF VALUE 0.50 [...] ORDERABLES Final Res ult Performing Organization Address City/[facility] Co de Phone Number L + [facility] [address] [place] [address] * EKG (10/04/2024 11:33 AM EDT) Heart Rate 75 bpm LM EKG QRS Interval 83 ms LM EKG QT Interval 403 ms LM EKG QTC Interval 451 ms [facility] EKG P [place] 74 deg LM EKG QRS [place] 62 deg LM EKG T Wave [place] 41 deg [facility] EKG P-R Interval 149 msec [facility] EKG SEVERITY Normal ECG severity [facility] EKG Comment::Sinus rhythm:Electr onically Signed On 10-04-2024 13:19:56 EDT by Sandra Esquivel MD 10/04/2024 11:3 3 AM EDT us Marco Antonio Miranda MD ECG ORDERABLES Edited Result - Final Performing Organization Address [facility] Co de Phone Number [facility] EKG from Last 3 Months Insurance [facility] Care Teams Supervisor [employer] Relationship Specialty Start Date End Date Irish Marie PA [address] [place] [phone] PCP - General Internal Medicine 10/04/24
== END 2024-11-24 08:18 | disposition home or self-care (01) ==
LOC: HO.LNP 08:17
PROVIDERS: PCP Physician Assistant; Visit Provider Nurse Practitioner Family
DX: A04.8 Other specified bacterial intestinal infections (principal)
CPT/HCPCS: 83013

== ENCOUNTER 2025-01-25 15:35 | Outpatient (AMB) | payer OTHER, SELFPAY ==
--- NOTE | 2025-01-25 15:44 | A.OFFVIS_ITS ---
Vital Signs 01/25/25 15:50 Height 5 ft 6 in Weight 136 lb 10.986 oz BMI 22.1 BP 107/66 Blood Pressure Location Lt brachial Position Sitting Pulse 75 Intake Visit Reasons: f/u h pylori Intake Note: Lea presents in the office as a follow up H Pylori. CC: she is here today for the H Pylori. No concerns. Business Information Manager Required: No Allergies morphine Allergy (Intermediate, Verified 01/25/25 15:50) Hives HPI HPI f/u h pylori: Details: Patient is a 54-year-old female with PMH of anxiety. Lea presents for Follow-up of chronic constipation, incomplete evacuation, bloating, and intermittent dyspepsia. The patient notes that belching has resolved and bloating is less bothersome, though still present. Stool frequency has become more regular with fewer ?rabbit-pellet? stools and occasional larger movements. No dysphagia, nausea, vomiting, hematochezia, melena, unexplained weight loss or new chest pain. She has not initiated any new diet or medication changes; she has not tried the prescribed simethicone. Famotidine was trialed previously with limited effect. She remains post-menopausal (amenorrhea for years). No hospitalizations or urgent care visits since the prior visit. [facility] Medical History (Updated 01/25/25 @ 16:26 by Heather Mcclure CNP) Abdominal bloating Chest pain Gallbladder polyp Change in stool Colon cancer screening Family History Paternal Grandmother Uterus cancer Mother HTN (hypertension) Radha's disease Social History Household Members: Family Alcohol intake: current Alcohol intake frequency: holidays/special occasions only Patient Tobacco Use Status: Never used Tobacco Review of Systems Const Reports as per HPI ENT Reports as per HPI Card Reports as per HPI Resp Reports as per HPI GI Reports as per HPI Reports as per HPI Physical Exam Vital Signs: Last Vital Signs Pulse 75 01/25/25 15:50 BP 107/66 01/25/25 15:50 BMI result Body Mass Index 22.1 Const General: healthy appearing, no acute distress and well developed Nutritional Appearance: average body habitus Orientation/consciousness: patient oriented x3 HEENT Head: Yes normal to inspection, Yes normocephalic and Yes atraumatic Face and sinus: Yes normal facial exam Eyes General: appearance normal, both eyes and all related structures Neck Neck: Yes normal visual inspection Resp Effort & Inspection: normal respiratory effort, able to speak in complete sentences, no tracheal deviation and symmetric chest movement Cardio Jugular venous distension: no JVD Neuro General: patient oriented x3 Gait exam (Neuro): Normal gait present Psych Appearance: grossly normal Mental Status: mental status grossly normal Speech and movement: Normal speech and movement present Affect: normal affect Attitude: cooperative Thought process: Normal thought process present Thought content: Normal thought content present Insight: Good insight present (Psych) Judgement: Good judgement present (Psych) Assessment & Plan Assessment & Plan (1) Change in stool: Code(s): R19.5 - Other fecal abnormalities Category: Medical Plan: Improving (more regular BMs, less pellet-type stools); celiac serology pending. Favorable symptom trend; no red-flags. Additional testing: Celiac serology Medications: Continue current regimen Lifestyle Recommendations: Encourage adequate fluids, regular physical activity, gradual dietary fiber increase. No gluten restriction until serology results. Provide education on red-flag symptoms. Referrals / Coordination: GI dietitian if celiac serology positive. Follow-Up Plan: Re-eval post-colonoscopy or sooner if constipation worsens or new red-flag symptoms. Review celiac serology via portal. (2) Abdominal bloating: Code(s): R14.0 - Abdominal distension (gaseous) Category: Medical Plan: Mildly improved; occasional residual bloating. No current heartburn/GERD; famotidine ineffective. Additional testing: -shared decision making to hold on imaging, unless new ( red flag) or worsening symptoms. -declined EGD as previously discussed. -Await celiac serology; if positive, initiate gluten-free diet. Medications: Simethicone 125mg PO q8?12h PRN for bloating; pt encouraged to trial. Lifestyle Recommendations: Continue current diet; consider low-FODMAP trial if bloating persists after labs. Plan Follow-up after colonoscopy or sooner as needed Time: I spent a total of 20 minutes on the date of encounter which includes: Preparing to see the patient (reviewed previous documentation, test results and medical history) Performing a medically appropriate exam and/or evaluation Ordering medications, tests, and procedures Documenting clinical information in the health record Coding Level of Care Code Established Pt Est Pt Level 3 (32782) Patient Type Established Diagnoses Change in stool R19.5 Abdominal bloating R14.0
[2025-01-25 15:50] VITALS: BP 107/66; PULSE 75; BMI 22.1
--- OUTSIDE RECORDS SUMMARY | 2025-01-25 18:53 | XMS_ITS | Clinical Summary ---
Author Organization [facility] Address [address] [place] [address] [place] [phone] Phone Care Team Providers Care Field Administrator Name Role Phone Irish Marie Primary Care Provider [phone] Allergies Active Allergy Reactions Criticality Noted Date Comments Morphine 08/24/2020 Medications No known medications Active Problems Problem Noted Date Diagnosed Date Pelvic pain 08/24/2020 Overview (08/24/2020): Bloating and discomfort for the past couple of months. Slight uterine enlargement on PE. Pap smear done and pelvic US ordered. Family History Medical History Relation Comments Uterine cancer Paternal Aunt Uterine cancer Paternal Grandmother Relation Status Comments Father Mother Alive Paternal Aunt Paternal Grandmother Social History Tobacco Use Types Packs/Day Years Used Date Smoking Tobacco: Former Smokeless Tobacco: Never Comments:occasional in colle ge Alcohol Use Standard Drinks/Week Comments Yes 0 (1 standard drink = 0.6 oz pur e alcohol) occasional Education Answer Date Recorded Are you interested in more education? Not on quentin e 09/06/2022 Are you concerned about learning? Not on file 09/06/2022 No 09/06/2022 No 09/06/2022 Digital Access Answer Date Recorded No 10/05/2022 No 10/05/2022 No 10/05/2022 Reliable internet access at home? Not on file 10/05/2022 Device with a working camera? Not on file Comments No Sex and Gender Information Value Date Recorded Sex Assigned at Not on file Legal Sex Female 9:35 PM EDT Gender Identity Not on file Sexual Orientation Not on file Last Filed Vital Signs Vital Sign Reading Time Taken Comments Blood Pressure 110/70 08/24/2020 8:18 AM EDT Pulse - - Temperature - - Respiratory Rate - - Oxygen Saturation - - Inhaled Oxygen Concentration - - Weight 60.3 kg (133 lb) 08/24/2020 8:18 AM EDT Height 167.6 cm (5' 6 ) 08/24/2020 8:18 AM EDT Body Mass Index 21.47 08/24/2020 8:18 AM EDT Plan of Treatment Health Maintenance Due Date Last Done Comments LIPID PANEL 1969 DEPRESSION SCREENING 1981 SMOKING Hx and SMOKELESS TOB ACCO SCREENING 1982 HEPATITIS C SCREENING 09/15/1987 HIV ONE-TIME SCREENING (18-6 5 YEARS) 09/15/1987 MAMMOGRAM 2009 COLOGUARD 2014 COLONOSCOPY 2014 COLORECTAL CANCER SCREENING 2014 FIT TEST 2014 FOBT 2014 SIGMOIDOSCOPY 2014 VIRTUAL COLONOSCOPY 2014 Adult Td,Tdap Booster 01/18/2015 01/18/2005 PNEUMOCOCCAL VACCINES (50+ y ears) (1 of 1 - PCV) 09/15/2019 ZOSTER VACCINES (1 of 2) 09/15/2019 PAP SMEAR 08/25/2023 08/24/2020 INFLUENZA VACCINE (#1) 2024 04/10/2012 COVID-19 VACCINE ( - 2023-2 5 season) 2025 HEPATITIS A VACCINES Aged Out No long er eligible based on patient's age to complete this topic HIB VACCINES Aged Out No longer eligi ble based on patient's age to complete this topic MENINGOCOCCAL VACCINES (ACWY) Aged Out No longer eligible based on patient's age to complete this topic MENINGOCOCCAL VACCINES (B) Aged Out N o longer eligible based on patient's age to complete this topic Medical Devices Not on file Procedures Procedure Name Priority Date/Time Associated Diagnosis Comments PAP TEST Routine 08/24/2020 12:00 AM EDT from Last 3 Months or Most Recently Relevant to Health Maintenance Results * Pap Smear (08/24/2020 12:00 AM EDT) 08/24/2020 08/25/2020 9:1 0 AM EDT Narrative SEE NARRATIVE - 08/30/2020 1:41 PM EDT [address] [address] Motel Food Service Supervisor: Pamela Lopez MD TAXATION AGENT Cytology Report FINAL DIAGNOSIS A. PAP SMEAR (SUREPATH) CE: SPECIMEN ADEQUACY: Satisfactory for evaluation; transformation zone present. INTERPRETATION: NEGATIVE FOR INTRAEPITHELIAL LESION OR MALIGNANCY. Electronically Signed Out By: SHEILA Greene(ASCP) The Pap test is a screening test primarily for squamous cancers and precursors and has associated false-negative and false-positive results. New technologies such as liquid-based preparations may decrease but will not eliminate all false-negative results. Regular sampling and follow-up of unexplained clinical signs and symptoms are recommended to minimize false negative results. PROCEDURES/ADDENDA HPV Testing (Requested) Ordered Date: 08/25/2020 A. PAP SMEAR (SUREPATH) CE: Human Papilloma Virus Test Negative for high-risk human papillomavirus types 16, 18, 45 and the Other high risk probe set (Includes 31, 33, 35, 39, 51, 52, 56, 58, 59, 66, 68) by [employer] Onclarity HR-HPV analysis. Clinical correlation is advised. This HPV test was performed at [facility], [address] [place] [address]. This test has been FDA approved for SurePath cervical cytology specimens. The accuracy and precision of this test for all other specimen sources has been verified in the Cytopathology Laboratory of the [facility] and has not been cleared or approved by the U.S. Food and Drug Administration. Clinical correlation is advised. CLINICAL HISTORY Date of Last Menstrual Period: Not Provided Menstrual History: Post Menopausal Other Clinical Conditions: Screening Pap Other: PELVIC PAIN SPECIMEN SOURCE A: PAP SMEAR (SUREPATH) CE Patient Name: HECTOR MARCUS : 1970 (Age: 49) Sex: F Institution: [facility] Location: [facility] Date of Collection: 08/24/2020 Date of Reported: 08/30/2020 13:41 Results to: Kathy CHINO Kathy T Paterno CNM CYTOLOGY ORDERABLES Final Res ult SEE NARRATIVE from Last 3 Months or Most Recently Relevant to Health Maintenance Insurance [email or web address]ENEFITS ADMINISTRAT[email or web address]ENEFITS ADMINISTRAT[email or web address]ENEFITS ADMINISTRATORS [email or web address]MINIST[employer] Care Teams Field Administrator Relationship Specialty Start Date End Date Irish Marie PA [address] [place] [phone] PCP - General Associate Professor Of Biology 08/23/20 Additional Source Comments The information contained in this document represents components of the legal health record. It is not the complete legal health record.[facility]
--- OUTSIDE RECORDS SUMMARY | 2025-01-25 18:53 | XMS_ITS | Clinical Summary ---
Author Organization [place] [address] [place] [address] Address [address] [facility] [place] [phone] Care Team Providers Care Boilermaking Supervisor Name Role Phone Irish Marie Primary Care Provider [phone] Allergies Active Allergy Reactions Criticality Noted Date Comments Morphine Hives High 08/24/2020 Medications No known medications Active Problems No known active problems Social History Tobacco Use Types Packs/Day Years [...] Shingrix (RZV) 2 Dose Standard Series) 09/15/2019 Influenza vaccine 12/10/2024 04/10/2012 Covid-19 vaccine series (1 - season) 2025 Tetanus adult (Td q 10,TDAP once) 06/05/2026 06/05/2016, 01/18/2005 Diabetes screening 10/05/2027 10/04/2024 RSV Immunization (1 - 1-dose 75+ series) 2044 Meningococcal B Vaccine Aged Out No l onger eligible based on patient's age to complete this topic Meningococcal Vaccine Aged Out No noam kayla eligible based on patient's age to complete this topic Procedures Procedure Name Priority Date/Time Associated Diagnosis Comments COMPREHENSIVE METABOLIC PANEL Routine 10/04/2024 11:39 AM EDT from Last 3 Months or Most Recently Relevant to Health Maintenance Results * (ABNORMAL) Comprehensive metabolic panel (10/04/2024 11:39 AM EDT) Sodium 138 136 - 145 mmol/L 10/04/2024 12:18 PM EDT [facility] Potassium 4.1 3.5 - 5.1 mmol/L 10/04/2024 12:18 PM EDT [facility] Chloride 107 98 - 107 mmol/L 10/04/2024 12:18 PM EDT [facility] CO2 25 21 - 32 mmol/L 10/04/2024 12:18 PM EDT [facility] Anion Gap 6 5 - 15 mmol/L 10/04/2024 12:18 PM EDT [facility] Glucose 113(H) 65 - 110 mg/dL 10/04/2024 12:18 PM EDT [facility] Comment: Non-fastin-110 mg/dL Fasting (minimum 6 hrs): 65-99 mg/dL BUN 16 7 - 18 mg/dL 10/04/2024 12:18 PM EDT [facility] Creatinine 1.01 0.55 - 1.02 mg/dL 10/04/2024 12:18 PM EDT [facility] Calcium 9.4 8.5 - 10.1 mg/dL 10/04/2024 12:18 PM [facility] Total Protein 6.9 6.4 - 8.2 g/dL 10/04/2024 12:18 PM [facility] Albumin 3.4 3.4 - 5.0 g/dL 10/04/2024 12:18 PM [facility] Globulin 3.5 2.5 - 5.0 g/dL 10/04/2024 12:18 PM T [facility] Total Bilirubin 0.6 <1.0 mg/dL 10/04/2024 12:18 PM T [facility] Comment:Use of this assay is not recommended for patients undergoing treatment with Eltrombopag due to the potential for falsely elevated results. Alkaline Phosphatase 56 45 - 117 U/L 10/04/2024 12:18 PM [facility] Alanine Aminotransferase (ALT) 25 13 - 56 U/L 10/04/2024 12:18 PM [facility] Aspartate Aminotransferase (AST) 18 15 - 37 U/L 10/04/2024 12:18 PM [facility] eGFR (Creatinine) >60 >=60 mL/min/1. 73m2 10/04/2024 12:18 PM [facility] Comment: [facility] utilizes CKD-EPI Creatinine 2020 to report eGFR. Values < 60 mL/min/1.73 m2 may indicate CKD if present for more than three months AND creatinine is at steady state. The eGFR provides a rough estimate of kidney function. For further guidance, please refer to the CKD: Adult Truck Driver Flatbed Signature pathway. Creatinine Delta 10/05/19 12:18 PM [facility] Comment:No previous creatini ne <5.00 mg/dL is available within the previous 12 months to calculate a delta creatinine. Blood Venipuncture / Unknown 10/04/2024 11:39 AM EDT 10/04/2024 11:43 AM EDT us Marco Antonio Miranda MD LAB BLOOD ORDERABLES Final Res ult + M [facility] [address] [place] [address] from Last 3 Months or Most Recently Relevant to Health Maintenance Insurance BCBS BCBS BCBS Care Teams Boilermaking Supervisor Relationship Specialty Start Date End Date Irish Marie PA [address] [place] [phone] PCP - General Internal Medicine 10/04/24
== END 2025-01-25 16:22 | disposition home or self-care (01) ==
LOC: HO.HGI 15:35
PROVIDERS: PCP Physician Assistant; Visit Provider Nurse Practitioner Family
DX: R19.5 Other fecal abnormalities (principal); R14.0 Abdominal distension (gaseous)
CPT/HCPCS: 99213

== ENCOUNTER 2025-01-31 08:56 | Outpatient (AMB) | payer OTHER, SELFPAY ==
--- NOTE | 2025-01-31 09:04 | A.OFFVIS_ITS ---
Vital Signs 01/31/25 09:12 Height 5 ft 6 in Weight 136 lb 8 oz BMI 22.0 BP 105/52 L Blood Pressure Location Lt brachial Position Sitting Pulse 80 Intake Visit Reasons: Gallbladder problems/polyps Intake Note: Patient is seen in office for evaluation and treatment of the gallbladder. 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 She previously underwent abdominal ultrasound on 03/13/2020 which revealed a small 2 x 1 mm echogenic density adjacent to the gallbladder wall questionable for a small gallbladder wall polyp. No gallstones were noted at that time. During the interval, she denies any abdominal pain, nausea or vomiting. She does have some bowel issues including constipation for which she is being evaluated by Gastroenterology. A repeat ultrasound of 11/03/2024 again revealed no gallstones but multiple gallbladder polyps, no gallbladder wall thickening and a normal common bile duct. Liver reveals normal homogeneous echotexture with a 9 mm cyst in the right lobe which is unchanged from the prior study. [facility] Medical History Abdominal bloating Chest pain Gallbladder polyp Change in stool Colon cancer screening Family History Paternal Grandmother Uterus cancer Mother HTN (hypertension) Radha's disease Social History Household Members: Family Alcohol intake: current Alcohol intake frequency: holidays/special occasions o nly Patient Tobacco Use Status: Never used Tobacco Review of Systems Const All systems reviewed & are unremarkable except as noted in HPI and below Physical Exam Vital Signs: Last Vital Signs Pulse 80 01/31/25 09:12 BP 105/52 L 01/31/25 09:12 BMI result Body Mass Index 22.0 Const General: healthy appearing Nutritional Appearance: well nourished Orientation/consciousness: patient oriented x3 Limitations: no limitations Resp Effort & Inspection: normal respiratory effort Skin Other: Warm, dry, no rash, normal color Neuro General: patient oriented x3 Extrem Other: No edema Results Reviewed Results Reviewed: Ultrasound abdomen 11/03/2024 and 03/13/2020 Assessment & Plan Assessment & Plan (1) Gallbladder polyp: Code(s): K82.4 - Cholesterolosis of gallbladder Category: Medical Plan We discussed indications for cholecystectomy for gallbladder polyps. Over the past 6 years the polyp has increased in size measuring approximately 7 mm. There are also multiple polyps noted currently. She does remain asymptomatic with no classic gallbladder symptoms. A case could be made for cholecystectomy given the change in the size of the polyp but after discussion of the risks and benefits, the patient wishes to continue to monitor the gallbladder polyp. Repeat ultrasound in 1 year we will be requested. She is welcome to call for any new concerns or questions. Coding Level of Care Code New Pt Level 4 (79254) Diagnoses Gallbladder polyp K82.4
[2025-01-31 09:12] VITALS: BP 105/52; PULSE 80; BMI 22.0
--- OUTSIDE RECORDS SUMMARY | 2025-01-31 10:23 | XMS_ITS | Clinical Summary ---
Author Organization [facility] Address [address] [place] [address] [place] [phone] Phone Care Team Providers Care Professor Of Musicology Name Role Phone Irish Marie Primary Care Provider [phone] Allergies Active Allergy Reactions Criticality Noted Date [...] SEE NARRATIVE - 08/30/2020 1:41 PM EDT [address] [address] Prop Worker: Pamela Lopez MD HEEL COVERER Cytology Report FINAL DIAGNOSIS A. PAP SMEAR [...] 52, 56, 58, 59, 66, 68) by [employer] Onclarity HR-HPV analysis. Clinical correlation is advised. This HPV test was performed at [facility], [address] [place] [address]. This test has been FDA approved for SurePath cervical cytology specimens. The accuracy and precision of this test for all other specimen sources has been verified in the Cytopathology Laboratory of the [facility] and has not been cleared or approved by the U.S. Food and Drug Administration. Clinical correlation is advised. CLINICAL HISTORY Date of Last Menstrual Period: Not Provided Menstrual History: Post Menopausal Other Clinical Conditions: Screening Pap Other: PELVIC PAIN SPECIMEN SOURCE A: PAP SMEAR (SUREPATH) CE Patient Name: HECTOR MARCUS : 1970 (Age: 49) Sex: F Institution: [facility] Location: [facility] Date of Collection: 08/24/2020 Date of Reported: 08/30/2020 13:41 Results to: Kathy CHINO Kathy T Paterno CNM CYTOLOGY ORDERABLES Final Res ult SEE NARRATIVE from Last 3 Months or Most Recently Relevant to Health Maintenance Insurance [employer]MINISTRAT[employer]EF[employer]MINISTRAT[employer]ENEFITS ADMINISTRATORS [employer]ENEFITS ADMINISTRATORS [employer]EF[employer] ADMINISTRATORS Performance Indicator ADMINISTRATORS [employer] Performance Indicator ADMINISTRATORS Care Teams Professor Of Musicology Relationship Specialty Start Date End Date Irish Marie PA [address] [place] [phone] PCP - General Entry Level Marketing Representative 08/23/20 Additional Source Comments The information contained in this document represents components of the legal health record. It is not the complete legal health record.[facility]
--- OUTSIDE RECORDS SUMMARY | 2025-01-31 10:23 | XMS_ITS | Clinical Summary ---
Author Organization [place] [address] [place] [address] Address [address] [facility] [place] [phone] Care Team Providers Care Grapple Crew Leader Name Role Phone Irish Marie Primary Care Provider [phone] Allergies Active Allergy Reactions Criticality Noted Date [...] - 145 mmol/L 10/04/2024 12:18 PM EDT [facility] Potassium 4.1 3.5 - 5.1 mmol/L 10/04/2024 12:18 PM EDT [facility] Chloride 107 98 - 107 mmol/L 10/04/2024 12:18 PM EDT [facility] CO2 25 21 - 32 mmol/L 10/04/2024 12:18 PM EDT [facility] Anion Gap 6 5 - 15 mmol/L 10/04/2024 12:18 PM EDT [facility] Glucose 113(H) 65 - 110 mg/dL 10/04/2024 12:18 PM EDT [facility] Comment: Non-fastin-110 mg/dL Fasting (minimum 6 hrs): 65-99 mg/dL BUN 16 7 - 18 mg/dL 10/04/2024 12:18 PM EDT [facility] Creatinine 1.01 0.55 - 1.02 mg/dL 10/04/2024 12:18 PM EDT [facility] Calcium 9.4 8.5 - 10.1 mg/dL 10/04/2024 12:[address] [facility] Total Protein 6.9 6.4 - 8.2 g/dL 10/04/2024 12:[address] [facility] Albumin 3.4 3.4 - 5.0 g/dL 10/04/2024 12:[address] [facility] Globulin 3.5 2.5 - 5.0 g/dL 10/04/2024 12:18 PM T [facility] Total Bilirubin 0.6 <1.0 mg/dL 10/04/2024 12:18 PM T [facility] Comment:Use of this assay is not recommended for patients undergoing treatment with Eltrombopag due to the potential for falsely elevated results. Alkaline Phosphatase 56 45 - 117 U/L 10/04/2024 12:[address] [facility] Alanine Aminotransferase (ALT) 25 13 - 56 U/L 10/04/2024 12:[address] [facility] Aspartate Aminotransferase (AST) 18 15 - 37 U/L 10/04/2024 12:[address] [facility] eGFR (Creatinine) >60 >=60 mL/min/1. 73m2 10/04/2024 12:[address] [facility] Comment: [facility] utilizes CKD-EPI Creatinine 2020 to report eGFR. Values < 60 mL/min/1.73 m2 may indicate CKD if present for more than three months AND creatinine is at steady state. The eGFR provides a rough estimate of kidney function. For further guidance, please refer to the CKD: Adult Field Application Engineer Signature pathway. Creatinine Delta 10/05/19 12:[address] [facility] Comment:No previous creatini ne <5.00 mg/dL is available within the previous 12 months to calculate a delta creatinine. Blood Venipuncture / Unknown 10/04/2024 11:39 AM EDT 10/04/2024 11:43 AM EDT us Marco Antonio Miranda MD LAB BLOOD ORDERABLES Final Res ult + M [facility] [address] [place] [address] from Last 3 Months or Most Recently Relevant to Health Maintenance Insurance BCBS BCBS BCBS Care Teams Grapple Crew Leader Relationship Specialty Start Date End Date Irish Marie PA [address] [place] [phone] PCP - General Internal Medicine 10/04/24
== END 2025-01-31 09:51 | disposition home or self-care (01) ==
PROVIDERS: PCP Physician Assistant; Visit Provider Surgery
DX: K82.4 Cholesterolosis of gallbladder (principal)
CPT/HCPCS: 99204

== ENCOUNTER → 2025-04-26 08:04 | Outpatient (REF) | payer OTHER, SELFPAY ==
--- NOTE | 2025-04-26 | CA_ITS ---
Acquisition Time: 2025-04-26 08:51:38 Total Exercise Time: 00:08:30 Test Indications: CP Medications: NONE Protocol: ROSALVA Max HR: 157 BPM 95% of Pred: 165 BPM Max BP: 138/60 mmHG Max Work Load: 10.1 METS Exercise stress test with exercise 8 mins 30 secs of Rosalva Protocol, achieving 93% MPHR, without any reports of CP or SOB, without any arrythmias, with normotensive response to exercise. Without any EKG changes meeting criteria for ischemia. In recovery, pt continued to feel well. Test reviewed with Dr. Lazaro. Referred By: Irish Marie Electronically Signed By: Ignacio Martinez
--- OUTSIDE RECORDS SUMMARY | 2025-04-26 08:18 | XMS_ITS | Clinical Summary ---
Author Organization [place] [address] [place] [address] Address [address] [facility] [place] [phone] Care Team Providers Care Dental Sales Representative Name Role Phone Irish Marie Primary Care Provider [phone] Allergies Active Allergy Reactions Criticality Noted Date [...] - 145 mmol/L 10/04/2024 12:18 PM EDT [facility] Potassium 4.1 3.5 - 5.1 mmol/L 10/04/2024 12:18 PM EDT [facility] Chloride 107 98 - 107 mmol/L 10/04/2024 12:18 PM EDT [facility] CO2 25 21 - 32 mmol/L 10/04/2024 12:18 PM EDT [facility] Anion Gap 6 5 - 15 mmol/L 10/04/2024 12:18 PM EDT [facility] Glucose 113(H) 65 - 110 mg/dL 10/04/2024 12:18 PM EDT [facility] Comment: Non-fastin-110 mg/dL Fasting (minimum 6 hrs): 65-99 mg/dL BUN 16 7 - 18 mg/dL 10/04/2024 12:18 PM EDT [facility] Creatinine 1.01 0.55 - 1.02 mg/dL 10/04/2024 12:18 PM EDT [facility] Calcium 9.4 8.5 - 10.1 mg/dL 10/04/2024 12:18 PM [facility] Total Protein 6.9 6.4 - 8.2 g/dL 10/04/2024 12:18 PM [facility] Albumin 3.4 3.4 - 5.0 g/dL 10/04/2024 12:18 PM [facility] Globulin 3.5 2.5 - 5.0 g/dL 10/04/2024 12:18 PM T [facility] Total Bilirubin 0.6 <1.0 mg/dL 10/04/2024 12:18 PM T [facility] Comment:Use of this assay is not recommended for patients undergoing treatment with Eltrombopag due to the potential for falsely elevated results. Alkaline Phosphatase 56 45 - 117 U/L 10/04/2024 12:18 PM [facility] Alanine Aminotransferase (ALT) 25 13 - 56 U/L 10/04/2024 12:18 PM [facility] Aspartate Aminotransferase (AST) 18 15 - 37 U/L 10/04/2024 12:18 PM [facility] eGFR (Creatinine) >60 >=60 mL/min/1. 73m2 10/04/2024 12:18 PM [facility] Comment: [facility] utilizes CKD-EPI Creatinine 2020 to report eGFR. Values < 60 mL/min/1.73 m2 may indicate CKD if present for more than three months AND creatinine is at steady state. The eGFR provides a rough estimate of kidney function. For further guidance, please refer to the CKD: Adult Adjudication Specialist Signature pathway. Creatinine Delta 10/05/19 12:18 PM [facility] Comment:No previous creatini ne <5.00 mg/dL is available within the previous 12 months to calculate a delta creatinine. Blood Venipuncture / Unknown 10/04/2024 11:39 AM EDT 10/04/2024 11:43 AM EDT us Marco Antonio Miranda MD LAB BLOOD ORDERABLES Final Res ult + M [facility] [address] [place] [address] from Last 3 Months or Most Recently Relevant to Health Maintenance Insurance BCBS BCBS BCBS Care Teams Dental Sales Representative Relationship Specialty Start Date End Date Irish Marie PA [address] [place] [phone] PCP - General Internal Medicine 10/04/24
--- OUTSIDE RECORDS SUMMARY | 2025-04-26 08:19 | XMS_ITS | Clinical Summary ---
Author Organization [facility] Address [address] [place] [address] [place] [phone] Phone Care Team Providers Care Painting Supervisor Name Role Phone Irish Marie Primary Care Provider [phone]- [phone] Allergies Active Allergy Reactions Criticality Noted Date [...] (#1) 2024 04/10/2012 COVID-19 VACCINE ( - 2024-2 6 season) 2025 RSV VACCINE (1 - 1-dose 75+ series) 2044 HEPATITIS A VACCINES Aged Out No long [...] SEE NARRATIVE - 08/30/2020 1:41 [place] [address] Fiber Optic Technician: Pamela Lopez MD [employer] Cytology Report FINAL DIAGNOSIS A. PAP SMEAR [...] 52, 56, 58, 59, 66, 68) by [employer] Onclarity HR-HPV analysis. Clinical correlation is advised. This HPV test was performed at [facility], [address] [place] [address]. This test has been FDA approved for [facility] cervical cytology specimens. The accuracy and precision of this test for all other specimen sources has been verified in the Cytopathology Laboratory of the [facility] and has not been cleared or approved by the U.S. Food and Drug Administration. Clinical correlation is advised. CLINICAL HISTORY Date of Last Menstrual Period: Not Provided Menstrual History: Post Menopausal Other Clinical Conditions: Screening Pap Other: PELVIC PAIN SPECIMEN SOURCE A: PAP SMEAR (SUREPATH) CE Patient Name: HECTOR MARCUS : 1970 (Age: 49) Sex: F Institution: [facility] Location: [facility] Date of Collection: 08/24/2020 Date of Reported: 08/30/2020 13:41 Results to: Kathy Coburn S Esrick PA us Kathy Reyes Francoise RIDLEY CYTOLOGY ORDERABLES Final Res ult SEE NARRATIVE from Last 3 Months or Most Recently Relevant to Health Maintenance Insurance [employer] Member Subscriber Plan / Payer (Ef fective 2019-Present) Name:Hector Marcus Relation to Subscriber:Self Name:Hector Marcus Payer ID:[id number] (NAIC) Type:PPO Address: [address] [employer] Member Subscriber Plan / Payer (Ef fective 2019-Present) Name:Hector Marcus Relation to Subscriber:Self Name:Hector Marcus Payer ID:[id number] (NAIC) Type:PPO Address: [address] [employer] B[employer] Care Teams Painting Supervisor Relationship Specialty Start Date End Date Irish Marie PA [address] [place] [phone] (work) PCP - General Brake Engineer 08/23/20 Additional Source Comments The information contained in this document represents components of the legal health record. It is not the complete legal health record.[facility]
== END ==
LOC: HO.CARD 08:04
PROVIDERS: Visit Provider Physician Assistant
DX: R07.9 Chest pain, unspecified (principal)
CPT/HCPCS: 93017

== ENCOUNTER → 2025-04-26 08:51 | Outpatient (BNV) | payer OTHER, SELFPAY | DX: R07.9 Chest pain, unspecified (principal) | CPT/HCPCS: 93016; 93018 ==